=== PATIENT | female | born 1935 | race Caucasian/White ===

== ENCOUNTER → 2017-01-09 | Outpatient (CLI) | payer OTHER, MEDICARE ==
[2013-06-17 07:35] VITALS: BP 120/59
[2017-01-09 10:25] LABS: BASOPHILS % (AUTO) 0.5 % (0.2-1.0); EOSINOPHILS # (AUTO) 0.3 x10^3/uL (0.0-0.2); EOSINOPHILS % (AUTO) 4.4 % (0.9-2.9); HEMATOCRIT 44.2 % (36.0-47.0); HEMOGLOBIN 14.6 g/dL (12.0-16.0); LYMPHOCYTES # (AUTO) 1.6 X10^3/uL (1.3-2.9); LYMPHOCYTES % (AUTO) 20.8 % (21.0-51.0); MEAN CORPUSCULAR HEMOGLOBIN 28.2 pg (27.0-34.0); MEAN CORPUSCULAR HGB CONC 33.1 g/dL (33.0-35.0); MEAN CORPUSCULAR VOLUME 85.2 fL (80.0-100.0); MEAN PLATELET VOLUME 8.4 fL (7.4-11.0); MONOCYTES # (AUTO) 0.4 x10^3/uL (0.3-0.8); MONOCYTES % (AUTO) 5.2 % (0.0-13.0); NEUTROPHILS # (AUTO) 5.2 x10^3/uL (2.2-4.8); NEUTROPHILS % (AUTO) 69.1 % (42.0-75.0); PLATELET COUNT 204 X10^3/uL (150.0-450.0); RED BLOOD COUNT 5.19 X10^6/uL (3.5-5.4); RED CELL DISTRIBUTION WIDTH 14.4 % (11.6-16.5); RETICULOCYTE % 1.39 % (0.8-2.2); WHITE BLOOD COUNT 7.6 X10^3/uL (3.6-10.0)
[2017-01-09 11:02] LABS: ALANINE AMINOTRANSFERASE 19 Units/L (12-78); ALBUMIN 3.5 g/dL (3.4-5.0); ALKALINE PHOSPHATASE 64 Units/L (46-116); ASPARTATE AMINO TRANSFERASE 17 Units/L (15-37); BLOOD UREA NITROGEN 22 mg/dL (7-18); CARBON DIOXIDE 32.3 mmol/L (21-32); CHLORIDE 103 mmol/L (98-107); COR NA(FOR HYPERGLY) 146 mmol/L (136-145); CREATININE 1.12 mg/dL (0.55-1.02); GLUCOSE 212 mg/dL (65-99); SODIUM 143 mmol/L (136-145); TOTAL PROTEIN 7.1 g/dL (6.4-8.2); eGFR BLACK RACES 60 (>60); eGFR NON BLACK RACES 50 (>60)
[2017-01-09 11:23] LABS: CREATININE,URINE 84.52 mg/dL (29-226); MICROALBUMIN,URINE 5.8 mg/L
[2017-01-09 11:25] LABS: HEMOGLOBIN A1C 6.3 % (4.5-6.2)
[2017-01-09 11:52] LABS: TRANSFERRIN 234 mg/dL (202-364)
== END ==
LOC: LAB 09:05
PROVIDERS: ATTEND Nurse Practitioner Family
DX: E11.9 Type 2 diabetes mellitus without complications (principal); D51.0 Vitamin B12 deficiency anemia due to intrinsic factor deficiency; I10 Essential (primary) hypertension; D50.8 Other iron deficiency anemias
CPT/HCPCS: 36415; 80053; 82043; 82607; 82728; 82746; 83036; 84466; 85025; 85045

== ENCOUNTER 2017-03-27 11:14 | Inpatient (IN) | payer OTHER, MEDICARE ==
--- NOTE | 2017-03-27 11:45 | DR.URIAD ---
HPI - Time Seen Time seen: 11:40 - PCP Primary Care Physician: KATHRINE DE LEON - Complaint Chief Complaint Doctors Comments: Patient presents with c/o cough and decreased appetite. Family members concerned about possibility of pneumonia and dehydration. Chief Complaint:: CCC, FEVER..... PTS SPOUSE STATES " SHE HAS A HIATAL HERNIA THAT INFECTED.. " - Source History Provided: Patient - Mode of Arrival Mode of Arrival: Ambulatory - Timing Onset of Chief Complaint: 03/25/17 - Quality Shortness of Breath: Mild PMH - PMH Past Medical History: Yes Past Medical History: Diabetes Past Medical History Comment: TYPE 2 , Past Surgical History: Yes Surgical History: Cholecystectomy, Hysterectomy Past Surgical History Comment: HIATAL HERNIAS , UTI.... - Family History History of Family Medical Conditions: Yes Family Medical History: Diabetes Mellitus, Cancer, [place], Coronary Artery Disease, Sudden Cardiac , Hypertension - Social History Does patient currently use any type of tobacco product: No Have you used tobacco products in the last 12 months: No Type of Tobacco Use: None Does any household member use tobacco: No Alcohol Use: None Do you use any recreational Drugs:: No Lives With: Family Lives Where: Home - infectious screening In the last 2 months have you had wt loss of >10#?: NO Have you had fever, night sweats or hemotysis?: No Have you traveled outside the country in the last 6 months?: No ROS - Review of Systems Eyes: No Symptoms Reported ENTM: No Symptoms Reported Respiratoy: No Symptoms Reported Cardiovascular: No Symptoms Reported Gastrointestinal/Abdominal: No Symptoms Reported Genitourinary: No Symptoms Reported Neurological: No Symptoms Reported Musculoskeletal: No Symptoms Reported Integumentary: No Symptoms Reported Hematologic/Lymphatic: No Symptoms Reported Endocrine: No Symptoms Reported Psychiatric: No Symptoms Reported All Other Systems: Reviewed and Negative PE - Vital Signs Vitals: Temperature 99.4 F Pulse Rate 93 Respiratory Rate 22 Blood Pressure [Right Arm] 176/79 Blood Pressure [Left Arm] 120/59 Blood Pressure [Left Femoral 122/59 Artery] Blood Pressure 135/74 O2 Sat by Pulse Oximetry 95 - General General Appearance: Alert, In No Apparent Distress - Head Head Exam: Normal Inspection, Atraumatic - Eyes Eye exam: Normal Appearance, PERRL, EOMI - ENT ENT Exam: Normal Exam External Ear Exam: Normal External Inspection TM/Canal Exam: Bilateral Normal Nose Exam: Normal Nose Exam Nasal Speculum Exam: Bilateral Normal Mouth Exam: Normal Inspection Throat Exam: Normal Inspection - Neck Neck Exam: Normal Inspection - Chest Chest Inspection: Normal Inspection - Respiratory Respiratory Exam: Normal Lung Sounds Bilat Respiratory Exam: Bilateral Clear to Auscultation - Cardiovascular Cardiovascular Exam: Regular Rate, Normal Rhythm - Abdominal Exam Abdominal Exam: Normal Inspection Abdominal Tenderness: negative: RUQ, RLQ, LUQ, LLQ, Epigastrium, Suprapubic, Diffuse, Mild, Moderate, Severe, Other - Extremeties Extremities Exam: Normal Inspection, Full ROM - Back Back Exam: Normal Inspection - Neurologic Neurological Exam: Alert, Oriented X3, CN II-XII Intact - Psychiatric Psychiatric Exam: Normal Affect - Skin Skin Exam: Warm, Dry, Intact Course - Consultation Called: 01:50 (Agreed to admit for further treatment and evaluation) ROR - Labs Reviewed Result Diagrams: 03/27/17 11:50 03/27/17 11:50 Laboratory: WBC 12.4 X10^3/uL (3.6-10.0) H 03/27/17 11:50 RBC 4.46 X10^6/uL (3.5-5.4) 03/27/17 11:50 Hgb 12.3 g/dL (12.0-16.0) 03/27/17 11:50 Hct 36.9 % (36.0-47.0) 03/27/17 11:50 MCV 82.7 fL (80.0-100.0) 03/27/17 11:50 MCH 27.5 pg (27.0-34.0) 03/27/17 11:50 MCHC 33.2 g/dL (33.0-35.0) 03/27/17 11:50 RDW 14.7 % (11.6-16.5) 03/27/17 11:50 Plt Count 246 X10^3/uL (150.0-450.0) 03/27/17 11:50 MPV 7.9 fL (7.4-11.0) 03/27/17 11:50 Neut % 83.2 % (42.0-75.0) H 03/27/17 11:50 Lymph % 9.4 % (21.0-51.0) L 03/27/17 11:50 [place] % 5.7 % (0.0-13.0) 03/27/17 11:50 Eos % 1.1 % (0.9-2.9) 03/27/17 11:50 Baso % 0.6 % (0.2-1.0) 03/27/17 11:50 Neut # 10.3 x10^3/uL (2.2-4.8) H 03/27/17 11:50 Lymph # 1.2 X10^3/uL (1.3-2.9) L 03/27/17 11:50 [place] # 0.7 x10^3/uL (0.3-0.8) 03/27/17 11:50 Eos # 0.1 x10^3/uL (0.0-0.2) 03/27/17 11:50 Baso # 0.1 X10^3/uL (0.0-0.1) 03/27/17 11:50 Absolute Nucleated RBC 0.0 /100WBC 03/27/17 11:50 Sodium 138 mmol/L (136-145) 03/27/17 11:50 Corrected Sodium 141 mmol/L (136-145) 03/27/17 11:50 Potassium 4.2 mmol/L (3.5-5.1) 03/27/17 11:50 Chloride 101 mmol/L (98-107) 03/27/17 11:50 Carbon Dioxide 27.7 mmol/L (21-32) 03/27/17 11:50 BUN 16 mg/dL (7-18) 03/27/17 11:50 Creatinine 1.13 mg/dL (0.55-1.02) H 03/27/17 11:50 Est GFR (MDRD) Af Amer 59 (>60) 03/27/17 11:50 Est GFR (MDRD) Non-Af 49 (>60) L 03/27/17 11:50 Glucose 222 mg/dL (65-99) H 03/27/17 11:50 Calcium 8.4 mg/dL (8.5-10.1) L 03/27/17 11:50 Corrected Calcium 9.4 mg/dL (8.5-10.1) 03/27/17 11:50 Total Bilirubin 0.30 mg/dL (0.2-1.0) 03/27/17 11:50 AST 15 Units/L (15-37) 03/27/17 11:50 ALT 15 Units/L (12-78) 03/27/17 11:50 Alkaline Phosphatase 76 Units/L (46-116) 03/27/17 11:50 Total Protein 6.8 g/dL (6.4-8.2) 03/27/17 11:50 Albumin 2.7 g/dL (3.4-5.0) L 03/27/17 11:50 Globulin 4.1 g/dL (2.5-4.5) 03/27/17 11:50 Albumin/Globulin Ratio 0.7 Ratio (1.1-2.1) L 03/27/17 11:50 Specimen Type Clean catch urine 03/27/17 12:52 Urine Color Yellow (YELLOW) 03/27/17 12:52 Urine Appearance Slightly hazy (CLEAR) 03/27/17 12:52 Urine pH 6.0 (5.0 - 8.0) 03/27/17 12:52 Ur Specific [place] 1.010 (1.000-1.030) 03/27/17 12:52 Urine Protein Negative (NEGATIVE) 03/27/17 12:52 Urine Glucose (UA) Negative (NEGATIVE) 03/27/17 12:52 Urine Ketones Negative (NEGATIVE) 03/27/17 12:52 Urine Occult Blood 1+ (NEGATIVE) 03/27/17 12:52 Urine Nitrite Negative (NEGATIVE) 03/27/17 12:52 Urine Bilirubin Negative (NEGATIVE) 03/27/17 12:52 Urine Urobilinogen Normal (NORMAL) 03/27/17 12:52 Ur Leukocyte Esterase Negative (NEGATIVE) 03/27/17 12:52 Urine RBC 3-5 /HPF (NEGATIVE) 03/27/17 12:52 Urine WBC 0-2 /HPF (NEGATIVE) 03/27/17 12:52 Ur Squamous Epith Cells Moderate /HPF (NEGATIVE) 03/27/17 12:52 Amorphous Sediment Trace /HPF (NEGATIVE) 03/27/17 12:52 Urine Bacteria 3+ /HPF (NEGATIVE) 03/27/17 12:52 Ur Culture Indicated? Yes/culture set up 03/27/17 12:52 - XRAY XRAY Interpreted by: Radiologist (Hypoventilated lungs. There are patchy areas of confluent opacity present in the left perihilar region and at the left lung base, worrisome for pneumonia. Clinical correlation with continued followup until resolution is recommended.) - Diagnosis Discharge Problem: Dehydration, mild Left lower lobe pneumonia Qualifiers: Pneumonia type: due to unspecified organism Qualified Code(s): J18.1 - Lobar pneumonia, unspecified organism - Follow ups/Referrals Follow ups/Referrals: ANG RICO [Primary Care Provider] - 3 days - Instructions
[2017-03-27 12:10] LABS: BASOPHILS # (AUTO) 0.1 X10^3/uL (0.0-0.1); BASOPHILS % (AUTO) 0.6 % (0.2-1.0); EOSINOPHILS # (AUTO) 0.1 x10^3/uL (0.0-0.2); EOSINOPHILS % (AUTO) 1.1 % (0.9-2.9); HEMATOCRIT 36.9 % (36.0-47.0); HEMOGLOBIN 12.3 g/dL (12.0-16.0); LYMPHOCYTES # (AUTO) 1.2 X10^3/uL (1.3-2.9); LYMPHOCYTES % (AUTO) 9.4 % (21.0-51.0); MEAN CORPUSCULAR HEMOGLOBIN 27.5 pg (27.0-34.0); MEAN CORPUSCULAR HGB CONC 33.2 g/dL (33.0-35.0); MEAN CORPUSCULAR VOLUME 82.7 fL (80.0-100.0); MEAN PLATELET VOLUME 7.9 fL (7.4-11.0); MONOCYTES # (AUTO) 0.7 x10^3/uL (0.3-0.8); MONOCYTES % (AUTO) 5.7 % (0.0-13.0); NEUTROPHILS # (AUTO) 10.3 x10^3/uL (2.2-4.8); NEUTROPHILS % (AUTO) 83.2 % (42.0-75.0); PLATELET COUNT 246 X10^3/uL (150.0-450.0); RED BLOOD COUNT 4.46 X10^6/uL (3.5-5.4); RED CELL DISTRIBUTION WIDTH 14.7 % (11.6-16.5); WHITE BLOOD COUNT 12.4 X10^3/uL (3.6-10.0)
[2017-03-27 12:16] LABS: ALBUMIN 2.7 g/dL (3.4-5.0); CALCIUM 8.4 mg/dL (8.5-10.1); CARBON DIOXIDE 27.7 mmol/L (21-32); COR CA(FOR HYPOALB) 9.4 mg/dL (8.5-10.1); CREATININE 1.13 mg/dL (0.55-1.02); TOTAL PROTEIN 6.8 g/dL (6.4-8.2)
--- NOTE | 2017-03-27 12:23 | RAD ---
Examination: Chest x-ray. Clinical History: Cough, congestion and fever. Technique: PA and lateral views of the chest were obtained. Comparison: 06/03/2013. Findings: The lungs are hypoventilated, precluding evaluation of the heart size. The thoracic aorta is tortuou s. There is a soft tissue opacity seen superimposed on the cardiac silhouette, with an associated air-f luid level also noted. Findings were also apparent on a chest x-ray dated 06/12/2012 and are consiste nt with a large hiatal hernia. No pneumothorax or pleural effusion is noted. There are patchy areas of confluent opacity present in the left perihilar region and at the left tom g base, worrisome for pneumonia. Clinical correlation with continued followup until resolution is re commended. The bones appear diffusely osteopenic. There is a mild thoracic scoliosis seen convex to the right, with an apparent lumbar scoliosis seen convex to the left. Degenerative changes are noted in the spi ne. No acute osseous abnormality is noted. Surgical clips are seen in the right upper abdomen consistent with a prior cholecystectomy. Impression: 1. Hypoventilated lungs. 2. There are patchy areas of confluent opacity present in the left perihilar region and at the left lung base, worrisome for pneumonia. Clinical correlation with continued followup until resolution is recommended. 3. Large hiatal hernia. Reported By:
[2017-03-27 13:25] LABS: BILIRUBIN,URINE NEGATIVE (NEGATIVE); BLOOD/HEMOGLOBIN,URINE 1+ (NEGATIVE); GLUCOSE, URINE NEGATIVE (NEGATIVE); KETONES,URINE NEGATIVE (NEGATIVE); LEUKOCYTE ESTERASE ,URINE NEGATIVE (NEGATIVE); NITRITES,URINE NEGATIVE (NEGATIVE); PROTEIN,URINE NEGATIVE (NEGATIVE); UROBILINOGEN,URINE NORMAL (NORMAL)
[2017-03-27 13:33] LABS: AMORPHOUS SEDIMENT,UR TRACE /HPF (NEGATIVE); APPEARANCE,URINE SLIGHTLY HAZY (CLEAR); BACTERIA,URINE 3+ /HPF (NEGATIVE); COLOR,URINE YELLOW (YELLOW); SQUAMOUS EPITHELIAL CELL,UR MODERATE /HPF (NEGATIVE)
[2017-03-27] MEDS ORDERED: NS 1/2 1000 ML IV 1,000 ML IV ONE (14:16)
[2017-03-27] MEDS ORDERED: ROCEPHIN 1 GM IV PREMIX * OUT OF STOCK 50 ML IV ONE (14:16)
[2017-03-27] MEDS: NS 1/2 1000 ML IV 1,000 ML IV SCH (14:19)
[2017-03-27] MEDS: ROCEPHIN VIAL 1 GM 1 GM in NS 50 ML IV + SPIKE MINIBAG* 50 ML IV SCH (14:19)
[2017-03-27] MEDS: DUONEB 0.5 MG/3 MG NEB SCH ×2 (16:05→20:22)
[2017-03-27] MEDS: ROBITUSSIN DM PO SCH ×2 (16:35→21:59)
[2017-03-27] MEDS ORDERED: GLUCOPHAGE ONE (21:43)
[2017-03-27] MEDS: VIBRAMYCIN 100 MG in NS 100 ML IV + SPIKE MINIBAG* 100 ML IV SCH (21:58)
[2017-03-27] MEDS: DIABETA PO SCH (21:59)
[2017-03-27] MEDS: ULTRAM PO SCH (21:59)
[2017-03-27] MEDS: TUSSIONEX PENNKINETIC SUSP PO PRN (21:59)
[2017-03-27] MEDS: SNACK - Diabetic Appropriate PO SCH (22:00)
[2017-03-27] MEDS: GLUCOPHAGE PO SCH (22:06)
[2017-03-27] MEDS: HumuLIN R SC PRN (22:09)
[2017-03-27] MEDS: XANAX PO PRN (22:11)
[2017-03-28] MEDS: DUONEB 0.5 MG/3 MG NEB SCH ×6 (00:59→20:54)
[2017-03-28] MEDS ORDERED: NS 1/2 1000 ML IV 1,000 ML IV ONE ×2 (02:15→18:17)
[2017-03-28] MEDS: ULTRAM PO SCH ×3 (05:02→21:17)
[2017-03-28] MEDS: NS 1/2 1000 ML IV 1,000 ML IV SCH ×2 (05:02→18:27)
[2017-03-28 05:49] LABS: BASOPHILS % (AUTO) 0.4 % (0.2-1.0); EOSINOPHILS # (AUTO) 0.4 x10^3/uL (0.0-0.2); EOSINOPHILS % (AUTO) 4.8 % (0.9-2.9); HEMATOCRIT 33.8 % (36.0-47.0); HEMOGLOBIN 11.2 g/dL (12.0-16.0); LYMPHOCYTES # (AUTO) 1.9 X10^3/uL (1.3-2.9); LYMPHOCYTES % (AUTO) 21.6 % (21.0-51.0); MEAN CORPUSCULAR HEMOGLOBIN 27.7 pg (27.0-34.0); MEAN CORPUSCULAR HGB CONC 33.3 g/dL (33.0-35.0); MEAN CORPUSCULAR VOLUME 83.3 fL (80.0-100.0); MEAN PLATELET VOLUME 8.2 fL (7.4-11.0); MONOCYTES # (AUTO) 0.5 x10^3/uL (0.3-0.8); MONOCYTES % (AUTO) 6.2 % (0.0-13.0); NEUTROPHILS # (AUTO) 5.8 x10^3/uL (2.2-4.8); PLATELET COUNT 211 X10^3/uL (150.0-450.0); RED BLOOD COUNT 4.05 X10^6/uL (3.5-5.4); RED CELL DISTRIBUTION WIDTH 14.9 % (11.6-16.5); WHITE BLOOD COUNT 8.6 X10^3/uL (3.6-10.0)
[2017-03-28 05:59] LABS: ALANINE AMINOTRANSFERASE 12 Units/L (12-78); ALBUMIN 2.4 g/dL (3.4-5.0); ALKALINE PHOSPHATASE 67 Units/L (46-116); ASPARTATE AMINO TRANSFERASE 11 Units/L (15-37); BLOOD UREA NITROGEN 10 mg/dL (7-18); CALCIUM 8.1 mg/dL (8.5-10.1); CARBON DIOXIDE 27.6 mmol/L (21-32); CHLORIDE 106 mmol/L (98-107); COR CA(FOR HYPOALB) 9.4 mg/dL (8.5-10.1); COR NA(FOR HYPERGLY) 144 mmol/L (136-145); CREATININE 0.96 mg/dL (0.55-1.02); GLUCOSE 133 mg/dL (65-99); SODIUM 143 mmol/L (136-145); TOTAL PROTEIN 6.3 g/dL (6.4-8.2); eGFR BLACK RACES > 60 (>60); eGFR NON BLACK RACES 59 (>60)
--- NOTE | 2017-03-28 06:34 | RAD ---
HISTORY: Follow up pneumonia Study: Chest one view Comparison: March 27, 2017 Findings: The heart is upper limits normal in size. No congestive heart failure is noted. The lungs are hyperi nflated. The right lung is free of acute infiltrates. Left perihilar infiltrate is unchanged. A hiat al hernia is present. The bony thorax is unremarkable. IMPRESSION: No change left perihilar pneumonia Hiatal hernia Reported By:
[2017-03-28] MEDS ORDERED: GLUCOPHAGE ONE ×2 (07:58→20:37)
[2017-03-28] MEDS: VIBRAMYCIN 100 MG in NS 100 ML IV + SPIKE MINIBAG* 100 ML IV SCH ×2 (08:48→21:17)
[2017-03-28] MEDS: ROCEPHIN VIAL 1 GM 1 GM in NS 50 ML IV + SPIKE MINIBAG* 50 ML IV SCH (08:48)
[2017-03-28] MEDS: DIABETA PO SCH ×2 (08:49→21:17)
[2017-03-28] MEDS: GLUCOPHAGE PO SCH ×2 (08:49→21:18)
[2017-03-28] MEDS: PriLOSEC PO SCH (08:49)
[2017-03-28] MEDS: FERROUS SULFATE PO SCH (08:49)
[2017-03-28] MEDS: ROBITUSSIN DM PO SCH ×4 (08:49→21:17)
[2017-03-28] MEDS: TUSSIONEX PENNKINETIC SUSP PO PRN ×2 (11:00→23:32)
[2017-03-28 13:54] VITALS: BMI 21.9
[2017-03-28] MEDS: SNACK - Diabetic Appropriate PO SCH (21:16)
[2017-03-28] MEDS: XANAX PO PRN (21:17)
[2017-03-28] MEDS: HumuLIN R SC PRN (21:18)
[2017-03-29] MEDS: DUONEB 0.5 MG/3 MG NEB SCH ×4 (01:42→12:35)
[2017-03-29] MEDS: ULTRAM PO SCH ×2 (05:50→13:06)
[2017-03-29 05:58] LABS: ALANINE AMINOTRANSFERASE 12 Units/L (12-78); ALBUMIN 2.3 g/dL (3.4-5.0); ALKALINE PHOSPHATASE 60 Units/L (46-116); ASPARTATE AMINO TRANSFERASE 14 Units/L (15-37); BLOOD UREA NITROGEN 9 mg/dL (7-18); CALCIUM 8.2 mg/dL (8.5-10.1); CARBON DIOXIDE 24.9 mmol/L (21-32); CHLORIDE 108 mmol/L (98-107); COR CA(FOR HYPOALB) 9.6 mg/dL (8.5-10.1); COR NA(FOR HYPERGLY) 145 mmol/L (136-145); CREATININE 0.87 mg/dL (0.55-1.02); GLUCOSE 184 mg/dL (65-99); SODIUM 143 mmol/L (136-145); eGFR BLACK RACES > 60 (>60); eGFR NON BLACK RACES > 60 (>60)
[2017-03-29 06:02] LABS: BASOPHILS % (AUTO) 0.5 % (0.2-1.0); EOSINOPHILS # (AUTO) 0.3 x10^3/uL (0.0-0.2); EOSINOPHILS % (AUTO) 4.3 % (0.9-2.9); HEMATOCRIT 32.1 % (36.0-47.0); HEMOGLOBIN 10.8 g/dL (12.0-16.0); LYMPHOCYTES # (AUTO) 1.4 X10^3/uL (1.3-2.9); MEAN CORPUSCULAR HEMOGLOBIN 27.9 pg (27.0-34.0); MEAN CORPUSCULAR HGB CONC 33.6 g/dL (33.0-35.0); MEAN CORPUSCULAR VOLUME 83.1 fL (80.0-100.0); MEAN PLATELET VOLUME 8.1 fL (7.4-11.0); MONOCYTES # (AUTO) 0.5 x10^3/uL (0.3-0.8); NEUTROPHILS # (AUTO) 5.6 x10^3/uL (2.2-4.8); NEUTROPHILS % (AUTO) 71.2 % (42.0-75.0); PLATELET COUNT 212 X10^3/uL (150.0-450.0); RED BLOOD COUNT 3.86 X10^6/uL (3.5-5.4); RED CELL DISTRIBUTION WIDTH 14.4 % (11.6-16.5); WHITE BLOOD COUNT 7.8 X10^3/uL (3.6-10.0)
[2017-03-29] MEDS ORDERED: GLUCOPHAGE ONE (08:16)
[2017-03-29] MEDS: GLUCOPHAGE PO SCH (08:29)
[2017-03-29] MEDS: FERROUS SULFATE PO SCH (08:29)
[2017-03-29] MEDS: DIABETA PO SCH (08:29)
[2017-03-29] MEDS: PriLOSEC PO SCH (08:29)
[2017-03-29] MEDS: NS 1/2 1000 ML IV 1,000 ML IV SCH (08:29)
[2017-03-29] MEDS: VIBRAMYCIN 100 MG in NS 100 ML IV + SPIKE MINIBAG* 100 ML IV SCH (08:30)
[2017-03-29] MEDS: ROBITUSSIN DM PO SCH ×2 (08:30→13:06)
[2017-03-29] MEDS: TUSSIONEX PENNKINETIC SUSP PO PRN (08:30)
[2017-03-29] MEDS: ROCEPHIN VIAL 1 GM 1 GM in NS 50 ML IV + SPIKE MINIBAG* 50 ML IV SCH (08:30)
[2017-03-29 12:46] VITALS: BP 113/54
[2017-03-29] MEDS ORDERED: GLUCOPHAGE PO SCH (17:00)
== END 2017-03-29 13:10 | disposition home or self-care (01) | DRG 179 ==
LOC: ER 11:31 → MED/SURG 15:00
PROVIDERS: ADMIT Obstetrics & Gynecology Obstetrics; ATTEND Obstetrics & Gynecology Obstetrics
DX: J15.0 Pneumonia due to Klebsiella pneumoniae (principal); E86.0 Dehydration; Z66 Do not resuscitate; K44.9 Diaphragmatic hernia without obstruction or gangrene; B96.29 Other Escherichia coli [E. coli] as the cause of diseases classified elsewhere; R26.89 Other abnormalities of gait and mobility
CPT/HCPCS: 36415; 71010; 71020; 80053; 81001; 85025; 87040; 87070; 87077; 87086; 87186; 87205; 94640; 94760; 96365; 96374; 97535; 99284; A4222; J0696; J1815; J3490; J7620

== ENCOUNTER → 2017-04-10 | Outpatient (CLI) | payer OTHER, MEDICARE ==
[2017-03-29 12:46] VITALS: BP 113/54
[2017-04-10 08:58] LABS: CREATININE,URINE 62.45 mg/dL (29-226); MICROALBUMIN,URINE 1.6 mg/L
[2017-04-10 09:07] LABS: HEMOGLOBIN A1C 6.8 % (4.5-6.2)
[2017-04-10 09:10] LABS: ALANINE AMINOTRANSFERASE 13 Units/L (12-78); ALBUMIN 3.3 g/dL (3.4-5.0); ALKALINE PHOSPHATASE 66 Units/L (46-116); ASPARTATE AMINO TRANSFERASE 12 Units/L (15-37); BLOOD UREA NITROGEN 12 mg/dL (7-18); CARBON DIOXIDE 30.5 mmol/L (21-32); CHLORIDE 100 mmol/L (98-107); CHOL/HDL RATIO 3.5 (0.0-5.0); CHOLESTEROL 178 mg/dL (0-200); COR CA(FOR HYPOALB) 9.6 mg/dL (8.5-10.1); COR NA(FOR HYPERGLY) 138 mmol/L (136-145); GLUCOSE 135 mg/dL (65-99); HDL CHOLESTEROL 51 mg/dL (40-60); SODIUM 137 mmol/L (136-145); TOTAL PROTEIN 7.2 g/dL (6.4-8.2); TRIGLYCERIDES 148 mg/dL (0-150); eGFR BLACK RACES > 60 (>60); eGFR NON BLACK RACES 51 (>60)
[2017-04-10 09:22] LABS: BASOPHILS # (AUTO) 0.1 X10^3/uL (0.0-0.1); EOSINOPHILS # (AUTO) 0.5 x10^3/uL (0.0-0.2); EOSINOPHILS % (AUTO) 7.1 % (0.9-2.9); HEMATOCRIT 39.9 % (36.0-47.0); HEMOGLOBIN 13.5 g/dL (12.0-16.0); LYMPHOCYTES # (AUTO) 1.9 X10^3/uL (1.3-2.9); MEAN CORPUSCULAR HEMOGLOBIN 27.7 pg (27.0-34.0); MEAN CORPUSCULAR HGB CONC 33.7 g/dL (33.0-35.0); MEAN PLATELET VOLUME 7.9 fL (7.4-11.0); MONOCYTES # (AUTO) 0.3 x10^3/uL (0.3-0.8); MONOCYTES % (AUTO) 4.8 % (0.0-13.0); NEUTROPHILS # (AUTO) 4.3 x10^3/uL (2.2-4.8); NEUTROPHILS % (AUTO) 60.1 % (42.0-75.0); PLATELET COUNT 290 X10^3/uL (150.0-450.0); RED BLOOD COUNT 4.86 X10^6/uL (3.5-5.4); RED CELL DISTRIBUTION WIDTH 14.9 % (11.6-16.5); RETICULOCYTE % 1.64 % (0.8-2.2); WHITE BLOOD COUNT 7.1 X10^3/uL (3.6-10.0)
[2017-04-10 09:33] LABS: TRANSFERRIN 252 mg/dL (202-364)
== END ==
LOC: LAB 07:47
PROVIDERS: ATTEND Nurse Practitioner Family
DX: E78.4 Other hyperlipidemia (principal); E11.9 Type 2 diabetes mellitus without complications; D51.0 Vitamin B12 deficiency anemia due to intrinsic factor deficiency
CPT/HCPCS: 36415; 80053; 80061; 82043; 82607; 82728; 82746; 83036; 83918; 84466; 85025; 85045

== ENCOUNTER → 2017-07-31 | Outpatient (CLI) | payer OTHER, MEDICARE ==
--- NOTE | 2017-07-31 16:42 | MG ---
Examination: Bilateral screening mammogram. Clinical history: Routine screening. Technique: Digital CC and MLO views of both breasts were obtained. Computer aided detection analysis was performed and used during the interpretation. Comparison: 07/04/2015. Findings: The breasts are composed of scattered fibroglandular densities. Benign-appearing calcifications and s table benign-appearing densities are present in the breasts bilaterally. No suspicious mass, area of architectural distortion or suspicious cluster of microcalcifications is noted. Impression: 1. No mammographic evidence of malignancy. BI-RADS category 2-benign findings. Recommend routine annual screening mammogram. Diagnostic CAD was utilized and reviewed. * 0 (ZERO) - ASSESSMENT INCOMPLETE; ADDITIONAL IMAGING IS NEEDED. * 0C - ASSESSMENT INCOMPLETE, NEEDS ADDITIONAL IMAGING EVALUATION AND/OR PRIOR MAMMOGRAMS FOR COMPARI SON. * 1/1 (ONE) - NEGATIVE. * 2/II (TWO) - BENIGN FINDINGS. * 3/III (THREE) - PROBABLY BENIGN FINDING; SHORT INTERVAL FOLLOW-UP SUGGESTED. * 4/IV (FOUR) - SUSPICIOUS ABNORMALITY; BIOPSY SHOULD BE CONSIDERED. * 5/V - HIGHLY SUSPICIOUS OF MALIGNANCY; BIOPSY SHOULD BE PERFORMED. * 6/IV - KNOWN BIOPSY PROVEN MALIGNANCY-APPROPRIATE ACTION SHOULD BE TAKEN. A NEGATIVE X-RAY REPORT SHOULD NOT DELAY BIOPSY IF A DOMINANT OR CLINICALLY SUSPICIOUS MASS IS PRESENT; 4 TO 8 PERCENT OF CANCERS ARE NOT IDENTIFIED BY X-RAY. A NEGATIVE REPORT MAY REINFORCE THE CLINICAL IMPRESSION. ADENOSIS AND DENSE BREASTS MAY OBSCURE AN UNDERLYING NEOPLASM. Reported By:
== END ==
LOC: RAD 09:09
PROVIDERS: ATTEND Nurse Practitioner Family
DX: Z12.31 Encounter for screening mammogram for malignant neoplasm of breast (principal)
CPT/HCPCS: 77067

== ENCOUNTER 2019-01-20 15:58 | Inpatient (IN) ==
[2019-01-20] MEDS ORDERED: HumuLIN R SUBCUT PRN (16:47)
[2019-01-20] MEDS: PULMICORT NEB TX 0.5 MG NEB SCH ×2 (16:56→20:06)
--- NOTE | 2019-01-20 16:59 | DR.H&P ---
H&P - History & Physical for Day of: H&P Date: 01/20/19 - Chief Complaint Chief Complaint: weakness, sob, coughing up mucous, UTI - History of Present Illness History of Present Illness: 83 WF DIRECT ADMIT FROM DR AWAN OFFICE WITH CO ER FOLLOW UP WITH WEAKNESS AND UTI. FAMILY REPORTS PT WAS SEEN IN ER ON SATURDAY WITH ELEVATED WBC AND LOW NA AND SENT HOME. PT HAS BEEN ON PO ANTIBIOTICS FOR UIT AND CONTINUES WITH WEAKNESS, CHILLS AND CHEST CONGESTION. PT HAS PMH OF CAD, HTN, DM, RA. PT ADMITTED FOR TREATMENT OF ACUTE ILLNESS, DEHYDRATION, UTI, BRONCHITIS - Past Medical History Past Medical History: Anxiety, Arthritis, Coronary Artery Disease, Diabetes, Dyslipidemia, Hypertension - Past Surgical History Surgical History: Cholecystectomy, Hysterectomy, Other - Family History Family Medical History: Diabetes Mellitus, Cancer, [place], Coronary Artery Disease, Sudden Cardiac , Hypertension - Social History Does patient currently use any type of tobacco product: No Have you used tobacco products in the last 12 months: No Type of Tobacco Use: None Does any household member use tobacco: No Alcohol Use: None Drug Use: None - Medications Home Medications: diphenhydramine [From Benadryl] Allergy (Verified 03/27/18 09:37) - Review of Systems Constitutional: Chills, Weakness Eyes: No Symptoms Reported ENT: No Symptoms Reported Respiratory: Cough, Shortness of Breath, SOB with Excertion, Sputum Cardiovascular: Chest Pain. denies: Edema Gastrointestinal: No Symptoms Reported, Nausea Genitourinary: Frequency Musculoskeletal: Back Pain Skin: No Symptoms Reported Neurological: Weakness - Physical Exam Vital Signs: Blood Pressure [Right Arm] 121/56 Blood Pressure [Left Arm] 120/59 Blood Pressure [Left Femoral 122/59 Artery] Blood Pressure 121/56 Oriented: Normal Eyes: Normal Ear: Normal Nose: Normal Throat: Normal Respiratory: RLL Rales, LLL Rales Cardiovascular: Murmur : Normal Auscultation: Bowel Sounds: Bruit Palpation: Spleen Enlarged Tenderness: Normal Skin: Decreased Turgur Musculoskeletal: Back:Thoracic, Back:Lumbar Psychiatric: Anxiety Affect: Anxious Speech Pattern: Clear, Appropriate - Assessment/Plan (1) Weakness Status: Acute Plan: ADMIT, GENTLE IV HYDRATION. STRICT I & OS, ADMISSION LABS. CBC CMP MAG, UA/UC BC. CXR ON ADMISSION, RESP CONSULT. IV ATBX, SUPPLEMENTAL O2 (2) UTI (urinary tract infection) Status: Acute (3) CHF (congestive heart failure) Status: Acute (4) Hyponatremia Status: Acute (5) Diabetes mellitus, type II Status: Chronic (6) Essential (primary) hypertension Status: Chronic (7) Generalized anxiety disorder Status: Chronic (8) GERD (gastroesophageal reflux disease) Status: Chronic - Allergies Allergies/Adverse Reactions: Allergies Allergy/AdvReac Type Severity Reaction Status Date / Time diphenhydramine Allergy Verified 03/27/18 09:37 [From Diogenes]
--- NOTE | 2019-01-20 17:18 | RAD ---
HISTORY: Shortness of breath, congestive heart failure, and bronchitis. Study: Portable chest. Comparison: Chest x-ray dated March 28, 2017. Findings: The trachea is midline. The cardiac silhouette is at the upper limits of normal. Chronic emphysematous and interstitial lung changes. Large hiatal hernia. No obvious focal consolidation, pleural effusion, or pneumothorax. The bony thorax is unremarkable. IMPRESSION: No acute cardiopulmonary disease. Reported By:
[2019-01-20 17:21] LABS: BASOPHILS % (AUTO) 0.4 % (0.2-1.0); EOSINOPHILS # (AUTO) 0.6 x10^3/uL (0.0-0.2); EOSINOPHILS % (AUTO) 5.6 % (0.9-2.9); HEMATOCRIT 27.9 % (36.0-47.0); HEMOGLOBIN 8.9 g/dL (12.0-16.0); LYMPHOCYTES # (AUTO) 1.3 X10^3/uL (1.3-2.9); LYMPHOCYTES % (AUTO) 13.3 % (21.0-51.0); MEAN CORPUSCULAR HEMOGLOBIN 23.1 pg (27.0-34.0); MEAN CORPUSCULAR HGB CONC 31.8 g/dL (33.0-35.0); MEAN CORPUSCULAR VOLUME 72.7 fL (80.0-100.0); MEAN PLATELET VOLUME 7.1 fL (7.4-11.0); MONOCYTES # (AUTO) 0.7 x10^3/uL (0.3-0.8); MONOCYTES % (AUTO) 6.8 % (0.0-13.0); NEUTROPHILS # (AUTO) 7.5 x10^3/uL (2.2-4.8); NEUTROPHILS % (AUTO) 73.9 % (42.0-75.0); PLATELET COUNT 337 X10^3/uL (150.0-450.0); RED BLOOD COUNT 3.84 X10^6/uL (3.5-5.4); RED CELL DISTRIBUTION WIDTH 17.5 % (11.6-16.5); WHITE BLOOD COUNT 10.1 X10^3/uL (3.6-10.0)
[2019-01-20 17:33] LABS: ALANINE AMINOTRANSFERASE 10 Units/L (12-78); ALBUMIN 2.4 g/dL (3.4-5.0); ALKALINE PHOSPHATASE 81 Units/L (46-116); ASPARTATE AMINO TRANSFERASE 9 Units/L (15-37); BLOOD UREA NITROGEN 9 mg/dL (7-18); CALCIUM 8.5 mg/dL (8.5-10.1); CARBON DIOXIDE 30.3 mmol/L (21-32); CHLORIDE 97 mmol/L (98-107); COR CA(FOR HYPOALB) 9.8 mg/dL (8.5-10.1); COR NA(FOR HYPERGLY) 137 mmol/L (136-145); CREATININE 1.01 mg/dL (0.55-1.02); SODIUM 135 mmol/L (136-145); TOTAL PROTEIN 6.3 g/dL (6.4-8.2); eGFR NON BLACK RACES 56 (>60)
[2019-01-20 17:40] LABS: ANISOCYTOSIS SLIGHT; GIANT PLATELET RARE; HYPOCHROMASIA 1+; MICROCYTOSIS SLIGHT; PLATELET MORPHOLOGY COMMENT ABNORMAL (NORMAL)
[2019-01-20 17:45] VITALS: BMI 31.6
[2019-01-20] MEDS: ROCEPHIN VIAL 1 GRAM IVP SCH (18:38)
[2019-01-20] MEDS: NS 1000 ML 1,000 ML IV SCH (18:38)
[2019-01-20 20:03] LABS: BILIRUBIN,URINE NEGATIVE (NEGATIVE); BLOOD/HEMOGLOBIN,URINE NEGATIVE (NEGATIVE); GLUCOSE, URINE 2+ (NEGATIVE); KETONES,URINE NEGATIVE (NEGATIVE); LEUKOCYTE ESTERASE ,URINE NEGATIVE (NEGATIVE); NITRITES,URINE NEGATIVE (NEGATIVE); PROTEIN,URINE 2+ (NEGATIVE); UROBILINOGEN,URINE NORMAL (NORMAL)
[2019-01-20 20:11] LABS: APPEARANCE,URINE CLEAR (CLEAR); COLOR,URINE YELLOW (YELLOW)
[2019-01-20 20:12] LABS: BACTERIA,URINE TRACE /HPF (NEGATIVE); RBC,URINE 0-2 /HPF (NONE SEEN); SQUAMOUS EPITHELIAL CELL,UR MANY /HPF (NEGATIVE)
[2019-01-20] MEDS: ULTRAM PO PRN (20:41)
[2019-01-20] MEDS: SNACK - Diabetic Appropriate PO SCH (21:40)
[2019-01-21 05:20] LABS: BASOPHILS # (AUTO) 0.1 X10^3/uL (0.0-0.1); EOSINOPHILS # (AUTO) 0.8 x10^3/uL (0.0-0.2); EOSINOPHILS % (AUTO) 9.9 % (0.9-2.9); HEMATOCRIT 26.9 % (36.0-47.0); HEMOGLOBIN 8.6 g/dL (12.0-16.0); LYMPHOCYTES # (AUTO) 1.8 X10^3/uL (1.3-2.9); LYMPHOCYTES % (AUTO) 23.3 % (21.0-51.0); MEAN CORPUSCULAR HEMOGLOBIN 23.1 pg (27.0-34.0); MEAN CORPUSCULAR VOLUME 72.2 fL (80.0-100.0); MEAN PLATELET VOLUME 7.8 fL (7.4-11.0); MONOCYTES # (AUTO) 0.6 x10^3/uL (0.3-0.8); MONOCYTES % (AUTO) 7.6 % (0.0-13.0); NEUTROPHILS # (AUTO) 4.4 x10^3/uL (2.2-4.8); NEUTROPHILS % (AUTO) 58.2 % (42.0-75.0); PLATELET COUNT 306 X10^3/uL (150.0-450.0); RED BLOOD COUNT 3.73 X10^6/uL (3.5-5.4); RED CELL DISTRIBUTION WIDTH 17.5 % (11.6-16.5); WHITE BLOOD COUNT 7.6 X10^3/uL (3.6-10.0)
[2019-01-21 05:32] LABS: ALANINE AMINOTRANSFERASE 7 Units/L (12-78); ALBUMIN 2.1 g/dL (3.4-5.0); ALKALINE PHOSPHATASE 76 Units/L (46-116); ASPARTATE AMINO TRANSFERASE 9 Units/L (15-37); BLOOD UREA NITROGEN 7 mg/dL (7-18); CALCIUM 8.1 mg/dL (8.5-10.1); CHLORIDE 101 mmol/L (98-107); COR CA(FOR HYPOALB) 9.6 mg/dL (8.5-10.1); COR NA(FOR HYPERGLY) 139 mmol/L (136-145); CREATININE 0.87 mg/dL (0.55-1.02); SODIUM 138 mmol/L (136-145); TOTAL PROTEIN 5.8 g/dL (6.4-8.2); eGFR NON BLACK RACES > 60 (>60)
[2019-01-21] MEDS ORDERED: POTASSIUM CHL 40 MEQ/NS 0.45% 500 ML IV PRN (05:52)
[2019-01-21] MEDS ORDERED: POTASSIUM CHL 60 MEQ/NS 0.45% 500 ML IV PRN (05:52)
[2019-01-21] MEDS ORDERED: POTASSIUM CHLORIDE LIQ 20 MEQ UDC PO PRN (05:52)
[2019-01-21] MEDS ORDERED: KLOR-CON PO PRN (05:52)
[2019-01-21] MEDS ORDERED: K-RIDER 10 MEQ/NS 100 ML 10 MEQ/100 ML BAG IV PRN (05:52)
[2019-01-21] MEDS ORDERED: MICRO K EXTEN CAP 10 MEQ PO PRN (05:52)
[2019-01-21 05:54] LABS: ANISOCYTOSIS SLIGHT; HYPOCHROMASIA 1+; OVALOCYTES PRESENT; PLATELET MORPHOLOGY COMMENT NORMAL (NORMAL)
[2019-01-21] MEDS: K-DUR TAB 20 MEQ PO PRN (06:31)
[2019-01-21] MEDS: MAGNESIUM SULFATE 1 GRAM/100 mL PREMIX 1 GM/100 ML BAG IV PRN ×2 (06:31→08:27)
[2019-01-21] MEDS: ROCEPHIN VIAL 1 GRAM IVP SCH (08:28)
[2019-01-21] MEDS: PULMICORT NEB TX 0.5 MG NEB SCH ×2 (09:07→20:30)
[2019-01-21] MEDS ORDERED: ULTRAM PO PRN (09:13)
[2019-01-21] MEDS ORDERED: BENTYL CAP 10 MG PO PRN (09:13)
[2019-01-21] MEDS: NS 1000 ML 1,000 ML IV SCH ×2 (09:15→22:17)
[2019-01-21] MEDS: DUONEB 0.5 MG/3 MG NEB SCH ×3 (09:39→17:02)
[2019-01-21] MEDS ORDERED: PHARMACY CONSULT - DOSE _____ XX SCH ×2 (10:00→14:00)
[2019-01-21] MEDS: ULTRAM PO PRN ×2 (10:10→19:00)
[2019-01-21] MEDS ORDERED: GLUCOPHAGE ONE ×2 (11:12→20:19)
[2019-01-21] MEDS: LOVENOX INJ 40 MG SYR SC SCH (11:28)
[2019-01-21] MEDS: HEMOCYTE-PLUS PO SCH (11:28)
[2019-01-21] MEDS: GLUCOPHAGE PO SCH ×2 (11:28→20:46)
[2019-01-21] MEDS: PriLOSEC PO SCH (11:29)
[2019-01-21] MEDS: ZIAC 5/6.25 MG PO SCH (11:29)
--- NOTE | 2019-01-21 13:50 | PCM.PROG ---
Progress Note - Progress Note for Day of Date of Exam: 01/21/19 - Subjective Subjective: 83 WF ADMITTED WITH WEAKNESS, AB, UTI, HYPONATREMIA. PT WAS STARTED ON IV HYDRATION WITH IV ATBX THERAPY. RESP CONSULT ON ADMISSION, STARTED ON PO ROBITUSSIN. ANEMIA PANEL OBTAINED. WILL REPEAT AM LABS - Past Medical Family Social History Past Med/Fam/Surg Hx: No changes since H&P Allergies: Allergies diphenhydramine [From Benadryl] Allergy (Verified 03/27/18 09:37) - Review of Systems ROS: No change since H&P - Vital Signs and I&O's Vital Signs: Temperature 98 F Pulse Rate [Right Brachial] 94 Pulse Rate 83 Respiratory Rate 20 Blood Pressure [Right Arm] 139/90 Blood Pressure [Left Arm] 120/59 Blood Pressure [Left Femoral 122/59 Artery] Blood Pressure 121/56 O2 Sat by Pulse Oximetry 98 Intake and Output: Intake & Output 01/19/19 01/20/19 01/21/19 01/22/19 11:59 11:59 11:59 11:59 Intake Total 950 / 950 Balance 950 / 950 - Physical Exam Oriented: Normal Eyes: Normal Ear: Normal Nose: Normal Throat: Normal Respiratory: Diminished, Rhonchi Cardiovascular: Murmur : Normal Auscultation: Bowel Sounds: Bruit Tenderness: Normal Skin: Decreased Turgur Musculoskeletal: Back:Thoracic, Back:Lumbar Psychiatric: Anxiety Affect: Anxious Speech Pattern: Clear, Appropriate - Laboratory and Diagnostics Result Diagrams: 01/21/19 04:05 01/21/19 04:05 Labs: 01/20/19 19:54 Urine,Clean Catch Urine Culture - Preliminary Laboratory WBC 7.6 X10^3/uL (3.6-10.0) 01/21/19 04:05 RBC 3.73 X10^6/uL (3.5-5.4) 01/21/19 04:05 Hgb 8.6 g/dL (12.0-16.0) L 01/21/19 04:05 Hct 26.9 % (36.0-47.0) L 01/21/19 04:05 MCV 72.2 fL (80.0-100.0) L 01/21/19 04:05 MCH 23.1 pg (27.0-34.0) L 01/21/19 04:05 MCHC 32.0 g/dL (33.0-35.0) L 01/21/19 04:05 RDW 17.5 % (11.6-16.5) H 01/21/19 04:05 Plt Count 306 X10^3/uL (150.0-450.0) 01/21/19 04:05 Plt Count Comment Adequate (ADEQUATE) 01/21/19 04:05 MPV 7.8 fL (7.4-11.0) 01/21/19 04:05 Neut % (Auto) 58.2 % (42.0-75.0) 01/21/19 04:05 Lymph % (Auto) 23.3 % (21.0-51.0) 01/21/19 04:05 [place] % (Auto) 7.6 % (0.0-13.0) 01/21/19 04:05 Eos % (Auto) 9.9 % (0.9-2.9) H 01/21/19 04:05 Baso % (Auto) 1.0 % (0.2-1.0) 01/21/19 04:05 Neut # (Auto) 4.4 x10^3/uL (2.2-4.8) 01/21/19 04:05 Lymph # (Auto) 1.8 X10^3/uL (1.3-2.9) 01/21/19 04:05 [place] # (Auto) 0.6 x10^3/uL (0.3-0.8) 01/21/19 04:05 Eos # (Auto) 0.8 x10^3/uL (0.0-0.2) H 01/21/19 04:05 Baso # (Auto) 0.1 X10^3/uL (0.0-0.1) 01/21/19 04:05 Absolute Nucleated RBC 0.0 /100WBC 01/21/19 04:05 Giant Platelets Rare 01/20/19 17:05 Plt Morphology Comment Normal (NORMAL) 01/21/19 04:05 RBC Morphology Abnormal (NORMAL) A 01/21/19 04:05 Hypochromasia 1+ A 01/21/19 04:05 Anisocytosis Slight A 01/21/19 04:05 Microcytosis Slight A 01/20/19 17:05 Ovalocytes Present 01/21/19 04:05 Sodium 138 mmol/L (136-145) 01/21/19 04:05 Corrected Sodium 139 mmol/L (136-145) 01/21/19 04:05 Potassium 3.5 mmol/L (3.5-5.1) 01/21/19 04:05 Chloride 101 mmol/L (98-107) 01/21/19 04:05 Carbon Dioxide 28.0 mmol/L (21-32) 01/21/19 04:05 BUN 7 mg/dL (7-18) 01/21/19 04:05 Creatinine 0.87 mg/dL (0.55-1.02) 01/21/19 04:05 Est GFR (MDRD) Af Amer > 60 (>60) 01/21/19 04:05 Est GFR (MDRD) Non-Af > 60 (>60) 01/21/19 04:05 Glucose 155 mg/dL (65-99) H 01/21/19 04:05 POC Glucose (mg/dL) 168 mg/dL (65-99) H 01/21/19 05:27 Calcium 8.1 mg/dL (8.5-10.1) L 01/21/19 04:05 Corrected Calcium 9.6 mg/dL (8.5-10.1) 01/21/19 04:05 Magnesium 1.5 mg/dL (1.7-2.9) L 01/21/19 04:27 Iron 11 ug/dL (50-175) L 01/21/19 08:51 Transferrin 182 mg/dL (202-364) L 01/21/19 08:51 Ferritin 52 ng/mL (8-252) 01/21/19 08:51 Total Bilirubin 0.20 mg/dL (0.2-1.0) 01/21/19 04:05 AST 9 Units/L (15-37) L 01/21/19 04:05 ALT 7 Units/L (12-78) L 01/21/19 04:05 Alkaline Phosphatase 76 Units/L (46-116) 01/21/19 04:05 Total Protein 5.8 g/dL (6.4-8.2) L 01/21/19 04:05 Albumin 2.1 g/dL (3.4-5.0) L 01/21/19 04:05 Globulin 3.7 g/dL (2.5-4.5) 01/21/19 04:05 Albumin/Globulin Ratio 0.6 Ratio (1.1-2.1) L 01/21/19 04:05 Vitamin B12 350 pg/mL (193-986) 01/21/19 08:51 Folate 10.1 ng/mL (>8.6) 01/21/19 08:51 Specimen Type Clean catch urine 01/20/19 19:52 Urine Color Yellow (YELLOW) 01/20/19 19:52 Urine Appearance Clear (CLEAR) 01/20/19 19:52 Urine pH 6.0 (5.0 - 8.0) 01/20/19 19:52 Ur Specific [place] 1.010 (1.000-1.030) 01/20/19 19:52 Urine Protein 2+ (NEGATIVE) 01/20/19 19:52 Urine Glucose (UA) 2+ (NEGATIVE) 01/20/19 19:52 Urine Ketones Negative (NEGATIVE) 01/20/19 19:52 Urine Occult Blood Negative (NEGATIVE) 01/20/19 19:52 Urine Nitrite Negative (NEGATIVE) 01/20/19 19:52 Urine Bilirubin Negative (NEGATIVE) 01/20/19 19:52 Urine Urobilinogen Normal (NORMAL) 01/20/19 19:52 Ur Leukocyte Esterase Negative (NEGATIVE) 01/20/19 19:52 Urine RBC 0-2 /HPF (NONE SEEN) 01/20/19 19:52 Urine WBC 0-2 /HPF (NONE SEEN) 01/20/19 19:52 Ur Squamous Epith Cells Many /HPF (NEGATIVE) 01/20/19 19:52 Urine Bacteria Trace /HPF (NEGATIVE) 01/20/19 19:52 Ur Culture Indicated? Yes/culture set up 01/20/19 19:52 - Plan (1) Weakness Status: Acute Plan: GENTLE IV HYDRATION. STRICT I & OS, AM LABS. CBC CMP MAG, UA/UC BC ON ADMISSION. RESP CONSULT. IV ATBX, SUPPLEMENTAL O2 (2) UTI (urinary tract infection) Status: Acute (3) CHF (congestive heart failure) Status: Acute (4) Hyponatremia Status: Acute (5) Diabetes mellitus, type II Status: Chronic (6) Essential (primary) hypertension Status: Chronic (7) Generalized anxiety disorder Status: Chronic (8) GERD (gastroesophageal reflux disease) Status: Chronic
[2019-01-21] MEDS ORDERED: NS 100 ML IV 100 ML with VENOFER 400 MG IV NR ×2 (15:00)
[2019-01-21] MEDS: ROBITUSSIN DM PO SCH ×3 (15:20→20:46)
[2019-01-21] MEDS: SNACK - Diabetic Appropriate PO SCH (21:21)
[2019-01-21] MEDS: HumuLIN R SUBCUT PRN (21:33)
[2019-01-22] MEDS: DUONEB 0.5 MG/3 MG NEB SCH ×4 (01:24→17:21)
[2019-01-22] MEDS: HumuLIN R SUBCUT PRN ×2 (06:20→17:10)
[2019-01-22 06:29] LABS: BASOPHILS % (AUTO) 0.4 % (0.2-1.0); EOSINOPHILS # (AUTO) 0.4 x10^3/uL (0.0-0.2); EOSINOPHILS % (AUTO) 4.9 % (0.9-2.9); HEMATOCRIT 24.4 % (36.0-47.0); HEMOGLOBIN 7.7 g/dL (12.0-16.0); LYMPHOCYTES % (AUTO) 25.5 % (21.0-51.0); MEAN CORPUSCULAR HEMOGLOBIN 23.1 pg (27.0-34.0); MEAN CORPUSCULAR HGB CONC 31.7 g/dL (33.0-35.0); MEAN PLATELET VOLUME 7.3 fL (7.4-11.0); MONOCYTES # (AUTO) 0.6 x10^3/uL (0.3-0.8); MONOCYTES % (AUTO) 7.6 % (0.0-13.0); NEUTROPHILS # (AUTO) 4.8 x10^3/uL (2.2-4.8); NEUTROPHILS % (AUTO) 61.6 % (42.0-75.0); PLATELET COUNT 291 X10^3/uL (150.0-450.0); RED BLOOD COUNT 3.34 X10^6/uL (3.5-5.4); RED CELL DISTRIBUTION WIDTH 17.5 % (11.6-16.5); WHITE BLOOD COUNT 7.7 X10^3/uL (3.6-10.0)
[2019-01-22] MEDS: ULTRAM PO PRN ×2 (06:40→14:37)
[2019-01-22 06:43] LABS: ALANINE AMINOTRANSFERASE 8 Units/L (12-78); ALBUMIN 1.9 g/dL (3.4-5.0); ALKALINE PHOSPHATASE 61 Units/L (46-116); ASPARTATE AMINO TRANSFERASE 11 Units/L (15-37); BLOOD UREA NITROGEN 3 mg/dL (7-18); CARBON DIOXIDE 27.8 mmol/L (21-32); CHLORIDE 106 mmol/L (98-107); COR CA(FOR HYPOALB) 9.7 mg/dL (8.5-10.1); COR NA(FOR HYPERGLY) 143 mmol/L (136-145); CREATININE 0.85 mg/dL (0.55-1.02); MAGNESIUM 1.6 mg/dL (1.7-2.9); SODIUM 141 mmol/L (136-145); TOTAL PROTEIN 5.2 g/dL (6.4-8.2); eGFR NON BLACK RACES > 60 (>60)
[2019-01-22 07:02] LABS: PLATELET MORPHOLOGY COMMENT NORMAL (NORMAL)
[2019-01-22 07:03] LABS: HYPOCHROMASIA 1+
[2019-01-22] MEDS ORDERED: GLUCOPHAGE ONE ×2 (07:26→19:41)
[2019-01-22] MEDS: ROCEPHIN VIAL 1 GRAM IVP SCH (08:03)
[2019-01-22] MEDS: GLUCOPHAGE PO SCH ×2 (08:04→20:18)
[2019-01-22] MEDS: PriLOSEC PO SCH (08:04)
[2019-01-22] MEDS: ROBITUSSIN DM PO SCH ×4 (08:04→20:19)
[2019-01-22] MEDS: ZIAC 5/6.25 MG PO SCH (08:04)
[2019-01-22] MEDS: HEMOCYTE-PLUS PO SCH (08:04)
[2019-01-22] MEDS: LOVENOX INJ 40 MG SYR SC SCH (08:05)
[2019-01-22] MEDS: PULMICORT NEB TX 0.5 MG NEB SCH ×2 (09:05→20:24)
[2019-01-22] MEDS: NS 1000 ML 1,000 ML IV SCH (13:39)
--- NOTE | 2019-01-22 15:30 | PCM.PROG ---
Progress Note - Progress Note for Day of Date of Exam: 01/22/19 - Subjective Subjective: 83 WF ADMITTED WITH WEAKNESS, AB, UTI, HYPONATREMIA. PT WAS STARTED ON IV HYDRATION WITH IV ATBX THERAPY ON ADMISSION. RESP THERAPY, ON PO ROBITUSSIN WITH REPORTS OF IMPROVING SPUTUM PRODUCTION. CO STILL FEELING VERY WEAK. SPOUSE REPORTS IMPROVED APPETITE SINCE ADMISSION. FE 11, IV IRON ORDERED FOR REPLACEMENT. SPUTUM CULTURE PENDING. REPEAT AM CXR. PHYSICAL THERAPY CONSULT - Past Medical Family Social History Past Med/Fam/Surg Hx: No changes since H&P Allergies: Allergies diphenhydramine [From Benadryl] Allergy (Verified 03/27/18 09:37) - Review of Systems ROS: No change since H&P - Vital Signs and I&O's Vital Signs: Temperature 98.7 F Pulse Rate [Right Brachial] 71 Pulse Rate 81 Respiratory Rate 20 Blood Pressure [Right Arm] 144/65 Blood Pressure [Left Arm] 120/59 Blood Pressure [Left Femoral 122/59 Artery] Blood Pressure 121/56 O2 Sat by Pulse Oximetry 96 Intake and Output: Intake & Output 01/20/19 01/21/19 01/22/19 01/23/19 11:59 11:59 11:59 11:59 Intake Total 950 / 950 2340 / 2340 1120 / 1120 Balance 950 / 950 2340 / 2340 1120 / 1120 - Physical Exam Oriented: Normal Eyes: Normal Ear: Normal Nose: Normal Throat: Normal Respiratory: Diminished, Rhonchi Cardiovascular: Murmur : Normal Auscultation: Bowel Sounds: Bruit Tenderness: Normal Skin: Decreased Turgur Musculoskeletal: Back:Thoracic, Back:Lumbar Psychiatric: Anxiety Affect: Anxious Speech Pattern: Clear, Appropriate - Laboratory and Diagnostics Result Diagrams: 01/22/19 05:52 01/22/19 05:52 Labs: 01/20/19 17:13 Blood Blood Culture - Preliminary 01/20/19 17:05 Blood Blood Culture - Preliminary 01/20/19 19:54 Urine,Clean Catch Urine Culture - Final Laboratory WBC 7.7 X10^3/uL (3.6-10.0) 01/22/19 05:52 RBC 3.34 X10^6/uL (3.5-5.4) L 01/22/19 05:52 Hgb 7.7 g/dL (12.0-16.0) L 01/22/19 05:52 Hct 24.4 % (36.0-47.0) L 01/22/19 05:52 MCV 73.0 fL (80.0-100.0) L 01/22/19 05:52 MCH 23.1 pg (27.0-34.0) L 01/22/19 05:52 MCHC 31.7 g/dL (33.0-35.0) L 01/22/19 05:52 RDW 17.5 % (11.6-16.5) H 01/22/19 05:52 Plt Count 291 X10^3/uL (150.0-450.0) 01/22/19 05:52 Plt Count Comment Adequate (ADEQUATE) 01/22/19 05:52 MPV 7.3 fL (7.4-11.0) L 01/22/19 05:52 Neut % (Auto) 61.6 % (42.0-75.0) 01/22/19 05:52 Lymph % (Auto) 25.5 % (21.0-51.0) 01/22/19 05:52 [place] % (Auto) 7.6 % (0.0-13.0) 01/22/19 05:52 Eos % (Auto) 4.9 % (0.9-2.9) H 01/22/19 05:52 Baso % (Auto) 0.4 % (0.2-1.0) 01/22/19 05:52 Neut # (Auto) 4.8 x10^3/uL (2.2-4.8) 01/22/19 05:52 Lymph # (Auto) 2.0 X10^3/uL (1.3-2.9) 01/22/19 05:52 [place] # (Auto) 0.6 x10^3/uL (0.3-0.8) 01/22/19 05:52 Eos # (Auto) 0.4 x10^3/uL (0.0-0.2) H 01/22/19 05:52 Baso # (Auto) 0.0 X10^3/uL (0.0-0.1) 01/22/19 05:52 Absolute Nucleated RBC 0.1 /100WBC 01/22/19 05:52 Giant Platelets Rare 01/20/19 17:05 Plt Morphology Comment Normal (NORMAL) 01/22/19 05:52 RBC Morphology Abnormal (NORMAL) A 01/22/19 05:52 Hypochromasia 1+ A 01/22/19 05:52 Anisocytosis Slight A 01/21/19 04:05 Microcytosis Slight A 01/20/19 17:05 Ovalocytes Present 01/21/19 04:05 Sodium 141 mmol/L (136-145) 01/22/19 05:52 Corrected Sodium 143 mmol/L (136-145) 01/22/19 05:52 Potassium 3.7 mmol/L (3.5-5.1) 01/22/19 05:52 Chloride 106 mmol/L (98-107) 01/22/19 05:52 Carbon Dioxide 27.8 mmol/L (21-32) 01/22/19 05:52 BUN 3 mg/dL (7-18) L 01/22/19 05:52 Creatinine 0.85 mg/dL (0.55-1.02) 01/22/19 05:52 Est GFR (MDRD) Af Amer > 60 (>60) 01/22/19 05:52 Est GFR (MDRD) Non-Af > 60 (>60) 01/22/19 05:52 Glucose 177 mg/dL (65-99) H 01/22/19 05:52 POC Glucose (mg/dL) 168 mg/dL (65-99) H 01/21/19 05:27 Calcium 8.0 mg/dL (8.5-10.1) L 01/22/19 05:52 Corrected Calcium 9.7 mg/dL (8.5-10.1) 01/22/19 05:52 Magnesium 1.6 mg/dL (1.7-2.9) L 01/22/19 05:52 Iron 11 ug/dL (50-175) L 01/21/19 08:51 Transferrin 182 mg/dL (202-364) L 01/21/19 08:51 Ferritin 52 ng/mL (8-252) 01/21/19 08:51 Total Bilirubin 0.10 mg/dL (0.2-1.0) L 01/22/19 05:52 AST 11 Units/L (15-37) L 01/22/19 05:52 ALT 8 Units/L (12-78) L 01/22/19 05:52 Alkaline Phosphatase 61 Units/L (46-116) 01/22/19 05:52 Total Protein 5.2 g/dL (6.4-8.2) L 01/22/19 05:52 Albumin 1.9 g/dL (3.4-5.0) L 01/22/19 05:52 Globulin 3.3 g/dL (2.5-4.5) 01/22/19 05:52 Albumin/Globulin Ratio 0.6 Ratio (1.1-2.1) L 01/22/19 05:52 Vitamin B12 350 pg/mL (193-986) 01/21/19 08:51 Folate 10.1 ng/mL (>8.6) 01/21/19 08:51 Specimen Type Clean catch urine 01/20/19 19:52 Urine Color Yellow (YELLOW) 01/20/19 19:52 Urine Appearance Clear (CLEAR) 01/20/19 19:52 Urine pH 6.0 (5.0 - 8.0) 01/20/19 19:52 Ur Specific [place] 1.010 (1.000-1.030) 01/20/19 19:52 Urine Protein 2+ (NEGATIVE) 01/20/19 19:52 Urine Glucose (UA) 2+ (NEGATIVE) 01/20/19 19:52 Urine Ketones Negative (NEGATIVE) 01/20/19 19:52 Urine Occult Blood Negative (NEGATIVE) 01/20/19 19:52 Urine Nitrite Negative (NEGATIVE) 01/20/19 19:52 Urine Bilirubin Negative (NEGATIVE) 01/20/19 19:52 Urine Urobilinogen Normal (NORMAL) 01/20/19 19:52 Ur Leukocyte Esterase Negative (NEGATIVE) 01/20/19 19:52 Urine RBC 0-2 /HPF (NONE SEEN) 01/20/19 19:52 Urine WBC 0-2 /HPF (NONE SEEN) 01/20/19 19:52 Ur Squamous Epith Cells Many /HPF (NEGATIVE) 01/20/19 19:52 Urine Bacteria Trace /HPF (NEGATIVE) 01/20/19 19:52 Ur Culture Indicated? Yes/culture set up 01/20/19 19:52 - Plan (1) Weakness Status: Acute Plan: GENTLE IV HYDRATION. STRICT I & OS, AM LABS. CBC CMP MAG, UA/UC BC. RESP CONSULT, SPUTUM CULTURE. DUO NEBS. IV ATBX, SUPPLEMENTAL O2 (2) UTI (urinary tract infection) Status: Acute (3) CHF (congestive heart failure) Status: Acute (4) Hyponatremia Status: Acute (5) Diabetes mellitus, type II Status: Chronic (6) Essential (primary) hypertension Status: Chronic (7) Generalized anxiety disorder Status: Chronic (8) GERD (gastroesophageal reflux disease) Status: Chronic (9) Murmur Status: Acute Plan: ECHO (10) Iron deficiency anemia Status: Acute
[2019-01-22] MEDS: K-DUR TAB 20 MEQ PO PRN (20:18)
[2019-01-22] MEDS: MAGNESIUM SULFATE 1 GRAM/100 mL PREMIX 1 GM/100 ML BAG IV PRN (20:19)
[2019-01-22] MEDS: SNACK - Diabetic Appropriate PO SCH (23:02)
[2019-01-23] MEDS: DUONEB 0.5 MG/3 MG NEB SCH ×3 (00:57→12:07)
[2019-01-23] MEDS: MAGNESIUM SULFATE 1 GRAM/100 mL PREMIX 1 GM/100 ML BAG IV PRN (03:32)
[2019-01-23 05:09] LABS: BASOPHILS # (AUTO) 0.1 X10^3/uL (0.0-0.1); BASOPHILS % (AUTO) 0.7 % (0.2-1.0); EOSINOPHILS # (AUTO) 0.5 x10^3/uL (0.0-0.2); EOSINOPHILS % (AUTO) 5.7 % (0.9-2.9); HEMATOCRIT 25.8 % (36.0-47.0); HEMOGLOBIN 8.1 g/dL (12.0-16.0); LYMPHOCYTES # (AUTO) 1.8 X10^3/uL (1.3-2.9); MEAN CORPUSCULAR HEMOGLOBIN 23.3 pg (27.0-34.0); MEAN CORPUSCULAR HGB CONC 31.6 g/dL (33.0-35.0); MEAN CORPUSCULAR VOLUME 73.6 fL (80.0-100.0); MEAN PLATELET VOLUME 7.6 fL (7.4-11.0); MONOCYTES # (AUTO) 0.5 x10^3/uL (0.3-0.8); MONOCYTES % (AUTO) 5.9 % (0.0-13.0); NEUTROPHILS % (AUTO) 67.7 % (42.0-75.0); PLATELET COUNT 363 X10^3/uL (150.0-450.0); RED CELL DISTRIBUTION WIDTH 17.7 % (11.6-16.5); WHITE BLOOD COUNT 8.8 X10^3/uL (3.6-10.0)
[2019-01-23 05:21] LABS: ALANINE AMINOTRANSFERASE 8 Units/L (12-78); ALBUMIN 2.1 g/dL (3.4-5.0); ALKALINE PHOSPHATASE 67 Units/L (46-116); ASPARTATE AMINO TRANSFERASE 8 Units/L (15-37); BLOOD UREA NITROGEN 3 mg/dL (7-18); CALCIUM 8.3 mg/dL (8.5-10.1); CARBON DIOXIDE 27.5 mmol/L (21-32); CHLORIDE 104 mmol/L (98-107); COR CA(FOR HYPOALB) 9.8 mg/dL (8.5-10.1); COR NA(FOR HYPERGLY) 142 mmol/L (136-145); CREATININE 0.83 mg/dL (0.55-1.02); SODIUM 140 mmol/L (136-145); TOTAL PROTEIN 5.5 g/dL (6.4-8.2); eGFR NON BLACK RACES > 60 (>60)
[2019-01-23] MEDS: NS 1000 ML 1,000 ML IV SCH ×2 (05:38→13:51)
[2019-01-23 05:50] LABS: ANISOCYTOSIS SLIGHT; HYPOCHROMASIA 1+; MICROCYTOSIS SLIGHT; PLATELET MORPHOLOGY COMMENT NORMAL (NORMAL)
[2019-01-23 05:51] LABS: OVALOCYTES SLIGHT
--- NOTE | 2019-01-23 05:59 | RAD ---
HISTORY: Cough, congestive heart failure Study: Chest PA and lateral Comparison: 01/20/2019 Findings: Patient is rotated to the left. The heart is enlarged. The jennifer are prominent and indistinct and the interstitium is prominent. Interstitial prominence has increased since the prior examination. This most likely represents interstitial edema superimposed on the patient's more chronic interstitial lung disease. No alveolar edema, alveolar infiltrates are identified. There is a small left pleural effusion present the bony thorax is unremarkable. IMPRESSION: Cardiomegaly with congestive heart failure and a small left pleural effusion Reported By:
[2019-01-23] MEDS ORDERED: MAALOX or MYLANTA PO PRN (07:26)
[2019-01-23] MEDS: PULMICORT NEB TX 0.5 MG NEB SCH (08:22)
[2019-01-23] MEDS ORDERED: LASIX IVP ONE ×2 (08:23→08:53)
[2019-01-23] MEDS ORDERED: GLUCOPHAGE ONE (08:28)
[2019-01-23] MEDS: ROBITUSSIN DM PO SCH ×2 (08:54→13:51)
[2019-01-23] MEDS: HEMOCYTE-PLUS PO SCH (08:55)
[2019-01-23] MEDS: GLUCOPHAGE PO SCH (08:55)
[2019-01-23] MEDS: ZIAC 5/6.25 MG PO SCH (08:55)
[2019-01-23] MEDS: PriLOSEC PO SCH (08:55)
[2019-01-23] MEDS: ROCEPHIN VIAL 1 GRAM IVP SCH (08:56)
[2019-01-23] MEDS: LOVENOX INJ 40 MG SYR SC SCH (08:56)
[2019-01-23] MEDS ORDERED: K-DUR TAB 20 MEQ PO SCH (09:00)
[2019-01-23] MEDS ORDERED: CARAFATE ORAL SUSP PO SCH (11:30)
[2019-01-23] MEDS ORDERED: ZOFRAN TAB 4 MG SL PRN (11:45)
[2019-01-23] MEDS ORDERED: ZOFRAN INJ 4 MG VIAL ONE (11:48)
[2019-01-23 16:00] VITALS: BP 137/63
== END 2019-01-23 16:15 | disposition home or self-care (01) | DRG 690 ==
LOC: MED/SURG → OBSVTOIN 16:07
PROVIDERS: ADMIT Internal Medicine; ATTEND Internal Medicine
DX: E87.1 Hypo-osmolality and hyponatremia; I11.0 Hypertensive heart disease with heart failure; M06.80 Other specified rheumatoid arthritis, unspecified site; R53.1 Weakness; R06.02 Shortness of breath; N39.0 Urinary tract infection, site not specified; D50.8 Other iron deficiency anemias; J20.8 Acute bronchitis due to other specified organisms; J90 Pleural effusion, not elsewhere classified; F41.8 Other specified anxiety disorders; R01.1 Cardiac murmur, unspecified; R26.89 Other abnormalities of gait and mobility; R94.31 Abnormal electrocardiogram [ECG] [EKG]; E86.0 Dehydration; E11.65 Type 2 diabetes mellitus with hyperglycemia; I50.9 Heart failure, unspecified; K21.9 Gastro-esophageal reflux disease without esophagitis
CPT/HCPCS: 36415; 71010; 71020; 71045; 71046; 80053; 81001; 82270; 82607; 82728; 82746; 83540; 83735; 84466; 85025; 87040; 87086; 93005; 93306; 94640; 94760; 97110; 97162; 97166; 97530; A4222; J0696; J1650; J1756; J1815; J1940; J2405; J3475; J7030; J7050; J7620; J7626

== ENCOUNTER 2019-11-03 19:25 | Inpatient (IN) ==
--- NOTE | 2019-11-03 19:48 | DR.GENAD ---
HPI Time Seen Time Seen by Provider: 11/03/19 19:38 PCP Primary Care Physician: MERLENE/BRONSON POST Complaint/Symptoms Chief Complaint Doctors Comments: 84 year old female with c/o generalized weakness today. She was witnessed to have a syncopal episode when she was being moved by EMS. Weakness worsens when she is upright. She takes BP medication and she has taken it this morning. Chief Complaint:: PT COMPLAINTS OF WEAKNESS HEADACHES AND NECK PAIN, EMS STATES WHEN TAKEN OVER TO STRETCHER PT BECOME DIAPHIORETIC AND PASSED OUT, PT SEEN MD TODAY ALSO, PT IN NO DISTRESS IN TRIAGE AND ANSERING QUESTIONS APPROPRIATLY. Self Treatment fo Chief Complaint: N/A Source History Provided: Patient and EMS Mode of Arrival Mode of Arrival: EMS Timing Onset of Chief Complaint: 11/03/19 PMH PMH Past Medical History: Yes Past Medical History: Anxiety, Arthritis, Coronary Artery Disease, Diabetes, Dyslipidemia and Hypertension Past Surgical History: Yes Surgical History: Cholecystectomy, Hysterectomy, Ortho Surgery and Tonsillectomy Past Surgical History Comment: LEFT KNEE Family History History of Family Medical Conditions: Yes Family Medical History: Diabetes Mellitus, Cancer and ID Social History Does patient currently use any type of tobacco product: No Have you used tobacco products in the last 12 months: No Type of Tobacco Use: None Does any household member use tobacco: No Alcohol Use: None Do you use any recreational Drugs:: No Lives With: Spouse Lives Where: Home infectious screening In the last 2 months have you had wt loss of >10#?: NO Have you had fever, night sweats or hemotysis?: No Have you traveled outside the country in the last 6 months?: No Isolation: Standard ROS Review of Systems Constitutional: Weakness Eyes: No Symptoms Reported ENTM: No Symptoms Reported Respiratoy: No Symptoms Reported Cardiovascular: No Symptoms Reported Gastrointestinal/Abdominal: No Symptoms Reported Genitourinary: No Symptoms Reported Neurological: Other (Syncopy) Musculoskeletal: No Symptoms Reported Integumentary: No Symptoms Reported All Other Systems: Reviewed and Negative PE Vital Signs Vitals: Temperature 98.9 F Pulse Rate [Left] 76 Pulse Rate 91 Respiratory Rate 18 Blood Pressure [Right Arm] 121/57 Blood Pressure 133/59 O2 Sat by Pulse Oximetry 97 General Limitations: No Limitations General Appearance: Alert, In No Apparent Distress and Other (chronically ill- appearing female in no distress. ) Head Head Exam: Atraumatic and Normocephalic Eyes Eye exam: Normal Appearance, PERRL, EOMI and Other (Mild conjunctival paleness) ENT ENT Exam: Normal Exam and Other (edentulous) Neck Neck Exam: Normal Inspection and Full ROM Chest Chest Inspection: Symmetric Chest Wall Rise Cardiovascular Cardiovascular Exam: Regular Rate and Normal Rhythm Abdominal Exam Abdominal Exam: Normal Inspection, Normal Bowel Sounds and Soft Extremities Extremities Exam: Other (ecchymotic spots on the posterior distal legs) Neurologic Neurological Exam: Alert and Oriented X3 Skin Skin Exam: Warm, Dry, Pallor (MIld pallor) and Other (Poor skin turgor) Other Exam Other Exam: Rectal: No stool in vault. No gross blood COURSE Consultation Called: 20:43 Consultation Comments: Call to Dr. Siddiqui regarding admission for blood transfusion ROR Labs Reviewed Laboratory Results Reviewed?: Yes Result Diagrams: 11/03/19 19:52 11/03/19 19:52 Laboratory: WBC 4.9 X10^3/uL (3.6-10.0) 11/03/19 19:52 RBC 2.64 X10^6/uL (3.5-5.4) L 11/03/19 19:52 Hgb 6.7 g/dL (12.0-16.0) L* 11/03/19 19:52 Hct 20.8 % (36.0-47.0) L 11/03/19 19:52 MCV 78.9 fL (80.0-100.0) L 11/03/19 19:52 MCH 25.5 pg (27.0-34.0) L 11/03/19 19:52 MCHC 32.3 g/dL (33.0-35.0) L 11/03/19 19:52 RDW 15.8 % (11.6-16.5) 11/03/19 19:52 Plt Count 275 X10^3/uL (150.0-450.0) 11/03/19 19:52 Plt Count Comment Adequate (ADEQUATE) 11/03/19 19:52 MPV 7.1 fL (7.4-11.0) L 11/03/19 19:52 Neut % (Auto) 80.1 % (42.0-75.0) H 11/03/19 19:52 Lymph % (Auto) 12.4 % (21.0-51.0) L 11/03/19 19:52 [place] % (Auto) 5.6 % (0.0-13.0) 11/03/19 19:52 Eos % (Auto) 0.9 % (0.9-2.9) 11/03/19 19:52 Baso % (Auto) 1.0 % (0.2-1.0) 11/03/19 19:52 Neut # (Auto) 3.9 x10^3/uL (2.2-4.8) 11/03/19 19:52 Lymph # (Auto) 0.6 X10^3/uL (1.3-2.9) L 11/03/19 19:52 [place] # (Auto) 0.3 x10^3/uL (0.3-0.8) 11/03/19 19:52 Eos # (Auto) 0.0 x10^3/uL (0.0-0.2) 11/03/19 19:52 Baso # (Auto) 0.0 X10^3/uL (0.0-0.1) 11/03/19 19:52 Absolute Nucleated RBC 0.1 /100WBC 11/03/19 19:52 Plt Morphology Comment Normal (NORMAL) 11/03/19 19:52 RBC Morphology Abnormal (NORMAL) A 11/03/19 19:52 Hypochromasia Slight A 11/03/19 19:52 PT 13.4 SECONDS (11.8-14.3) 11/03/19 19:52 INR Target Range - 11/03/19 19:52 INR 1.06 (0.8-1.3) 11/03/19 19:52 APTT 26.4 SECONDS (22.9-36.5) 11/03/19 19:52 PTT Comment - 11/03/19 19:52 Sodium 139 mmol/L (136-145) 11/03/19 19:52 Corrected Sodium 141 mmol/L (136-145) 11/03/19 19:52 Potassium 3.9 mmol/L (3.5-5.1) 11/03/19 19:52 Chloride 106 mmol/L (98-107) 11/03/19 19:52 Carbon Dioxide 28.7 mmol/L (21-32) 11/03/19 19:52 BUN 11 mg/dL (7-18) 11/03/19 19:52 Creatinine 1.06 mg/dL (0.55-1.02) H 11/03/19 19:52 Est GFR (MDRD) Af Amer > 60 (>60) 11/03/19 19:52 Est GFR (MDRD) Non-Af 52 (>60) L 11/03/19 19:52 Glucose 202 mg/dL (65-99) H 11/03/19 19:52 Calcium 7.5 mg/dL (8.5-10.1) L 11/03/19 19:52 Corrected Calcium 8.9 mg/dL (8.5-10.1) 11/03/19 19:52 Iron 10 ug/dL (50-175) L 11/03/19 19:52 Transferrin 200 mg/dL (202-364) L 11/03/19 19:52 Ferritin 31 ng/mL (8-252) 11/03/19 19:52 Total Bilirubin 0.10 mg/dL (0.2-1.0) L 11/03/19 19:52 AST 15 Units/L (15-37) 11/03/19 19:52 ALT 14 Units/L (12-78) 11/03/19 19:52 Alkaline Phosphatase 75 Units/L (46-116) 11/03/19 19:52 Creatine Kinase 11 Units/L (26-192) L 11/03/19 19:52 Troponin I < 0.02 ng/mL (0-1.5) 11/03/19 19:52 Total Protein 5.2 g/dL (6.4-8.2) L 11/03/19 19:52 Albumin 2.3 g/dL (3.4-5.0) L 11/03/19 19:52 Globulin 2.9 g/dL (2.5-4.5) 11/03/19 19:52 Albumin/Globulin Ratio 0.8 Ratio (1.1-2.1) L 11/03/19 19:52 Vitamin B12 > 2000 pg/mL (193-986) H 11/03/19 19:52 Folate > 20.0 ng/mL (>8.6) 11/03/19 19:52 Specimen Type Catherized urine 11/03/19 20:57 Urine Color Yellow (YELLOW) 11/03/19 20:57 Urine Appearance Hazy (CLEAR) 11/03/19 20:57 Urine pH 5.0 (5.0 - 8.0) 11/03/19 20:57 Ur Specific [place] 1.020 (1.000-1.030) 11/03/19 20:57 Urine Protein Negative (NEGATIVE) 11/03/19 20:57 Urine Glucose (UA) Negative (NEGATIVE) 11/03/19 20:57 Urine Ketones Negative (NEGATIVE) 11/03/19 20:57 Urine Occult Blood Negative (NEGATIVE) 11/03/19 20:57 Urine Nitrite Positive (NEGATIVE) 11/03/19 20:57 Urine Bilirubin Negative (NEGATIVE) 11/03/19 20:57 Urine Urobilinogen Normal (NORMAL) 11/03/19 20:57 Ur Leukocyte Esterase 2+ (NEGATIVE) 11/03/19 20:57 Urine RBC None seen /HPF (0-3) 11/03/19 20:57 Urine WBC 10-20 /HPF (0-5) A 11/03/19 20:57 Ur Squamous Epith Cells Rare /HPF (NEGATIVE) 11/03/19 20:57 Urine Bacteria 2+ /HPF (NEGATIVE) 11/03/19 20:57 Ur Culture Indicated? Yes/culture set up 11/03/19 20:57 Stool Description Ifob collection tube 11/03/19 20:32 Stl Occult Blood (IFOB) Positive (NEGATIVE) A 11/03/19 20:32 Blood Type A POSITIVE 11/03/19 19:52 Antibody Screen Negative 11/03/19 19:52 Crossmatch See Detail 11/03/19 19:52 EKG Rate: 80 Rhythm: NSR Block: RBBB Opioid Opioid Risk Tool Age (Daryn box if 16-45): No History of Preadolescent Sexual Abuse: No Total: 0 Total Score Risk Category: Low Risk Copyright: Carlos CHRISTY predicting aberrant behaviors Diagnosis Discharge Problem: Anemia Qualifiers: Anemia type: unspecified type Qualified Code(s): D64.9 - Anemia, unspecified UTI (urinary tract infection) Qualifiers: Urinary tract infection type: acute cystitis Instructions Forms: Excuse From Work Patient Portal
[2019-11-03] MEDS ORDERED: NS 1000 ML 1,000 ML IV SCH (20:00)
[2019-11-03 20:12] LABS: EOSINOPHILS % (AUTO) 0.9 % (0.9-2.9); HEMATOCRIT 20.8 % (36.0-47.0); LYMPHOCYTES # (AUTO) 0.6 X10^3/uL (1.3-2.9); LYMPHOCYTES % (AUTO) 12.4 % (21.0-51.0); MEAN CORPUSCULAR HEMOGLOBIN 25.5 pg (27.0-34.0); MEAN CORPUSCULAR HGB CONC 32.3 g/dL (33.0-35.0); MEAN CORPUSCULAR VOLUME 78.9 fL (80.0-100.0); MEAN PLATELET VOLUME 7.1 fL (7.4-11.0); MONOCYTES # (AUTO) 0.3 x10^3/uL (0.3-0.8); MONOCYTES % (AUTO) 5.6 % (0.0-13.0); NEUTROPHILS # (AUTO) 3.9 x10^3/uL (2.2-4.8); NEUTROPHILS % (AUTO) 80.1 % (42.0-75.0); PLATELET COUNT 275 X10^3/uL (150.0-450.0); RED BLOOD COUNT 2.64 X10^6/uL (3.5-5.4); RED CELL DISTRIBUTION WIDTH 15.8 % (11.6-16.5); WHITE BLOOD COUNT 4.9 X10^3/uL (3.6-10.0)
[2019-11-03 20:14] LABS: ALANINE AMINOTRANSFERASE 14 Units/L (12-78); ALBUMIN 2.3 g/dL (3.4-5.0); ALKALINE PHOSPHATASE 75 Units/L (46-116); ASPARTATE AMINO TRANSFERASE 15 Units/L (15-37); BLOOD UREA NITROGEN 11 mg/dL (7-18); CALCIUM 7.5 mg/dL (8.5-10.1); CARBON DIOXIDE 28.7 mmol/L (21-32); CHLORIDE 106 mmol/L (98-107); COR CA(FOR HYPOALB) 8.9 mg/dL (8.5-10.1); COR NA(FOR HYPERGLY) 141 mmol/L (136-145); CREATININE 1.06 mg/dL (0.55-1.02); SODIUM 139 mmol/L (136-145); TOTAL PROTEIN 5.2 g/dL (6.4-8.2); eGFR NON BLACK RACES 52 (>60)
[2019-11-03 20:16] LABS: CREATINE KINASE 11 Units/L (26-192); HEMOGLOBIN 6.7 g/dL (12.0-16.0); TROPONIN I < 0.02 ng/mL (0-1.5)
[2019-11-03 20:23] LABS: PLATELET MORPHOLOGY COMMENT NORMAL (NORMAL)
[2019-11-03 20:24] LABS: HYPOCHROMASIA SLIGHT
[2019-11-03] MEDS ORDERED: NS 1000 ML 1,000 ML ONE (20:27)
[2019-11-03 21:23] LABS: BILIRUBIN,URINE NEGATIVE (NEGATIVE); BLOOD/HEMOGLOBIN,URINE NEGATIVE (NEGATIVE); GLUCOSE, URINE NEGATIVE (NEGATIVE); KETONES,URINE NEGATIVE (NEGATIVE); LEUKOCYTE ESTERASE ,URINE 2+ (NEGATIVE); NITRITES,URINE POSITIVE (NEGATIVE); PROTEIN,URINE NEGATIVE (NEGATIVE); UROBILINOGEN,URINE NORMAL (NORMAL)
[2019-11-03 21:33] LABS: APPEARANCE,URINE HAZY (CLEAR); BACTERIA,URINE 2+ /HPF (NEGATIVE); COLOR,URINE YELLOW (YELLOW); RBC,URINE NONE SEEN /HPF (0-3); SQUAMOUS EPITHELIAL CELL,UR RARE /HPF (NEGATIVE)
[2019-11-03] MEDS ORDERED: LASIX IVP ONE (22:40)
[2019-11-03 22:50] LABS: IRON 10 ug/dL (50-175)
[2019-11-03] MEDS ORDERED: NS 250 ML IV 250 ML IV ONE (22:56)
[2019-11-03] MEDS ORDERED: ULTRAM ONE (22:57)
[2019-11-03] MEDS: ULTRAM PO PRN (23:15)
[2019-11-03 23:53] VITALS: BMI 15.7
[2019-11-03 23:53] LABS: CKMB % 3.6 % (<4); CREATINE KINASE 28 Units/L (26-192); CREATINE KINASE MB < 1.0 ng/mL (0-4.0); TROPONIN I < 0.02 ng/mL (0-1.5)
[2019-11-04] MEDS: ROCEPHIN VIAL 1 GRAM 1 G in NS 100 ML IV + SPIKE MINIBAG* 100 ML IV SCH ×3 (01:45→22:38)
[2019-11-04] MEDS: NS 1000 ML 1,000 ML IV SCH ×2 (02:35→20:13)
[2019-11-04 06:11] LABS: BASOPHILS % (AUTO) 0.7 % (0.2-1.0); EOSINOPHILS # (AUTO) 0.1 x10^3/uL (0.0-0.2); EOSINOPHILS % (AUTO) 2.5 % (0.9-2.9); HEMATOCRIT 33.8 % (36.0-47.0); HEMOGLOBIN 11.3 g/dL (12.0-16.0); LYMPHOCYTES # (AUTO) 1.2 X10^3/uL (1.3-2.9); LYMPHOCYTES % (AUTO) 23.7 % (21.0-51.0); MEAN CORPUSCULAR HGB CONC 33.3 g/dL (33.0-35.0); MONOCYTES # (AUTO) 0.4 x10^3/uL (0.3-0.8); MONOCYTES % (AUTO) 7.8 % (0.0-13.0); NEUTROPHILS # (AUTO) 3.4 x10^3/uL (2.2-4.8); NEUTROPHILS % (AUTO) 65.3 % (42.0-75.0); PLATELET COUNT 262 X10^3/uL (150.0-450.0); RED BLOOD COUNT 4.17 X10^6/uL (3.5-5.4); RED CELL DISTRIBUTION WIDTH 15.5 % (11.6-16.5); WHITE BLOOD COUNT 5.2 X10^3/uL (3.6-10.0)
[2019-11-04 06:30] LABS: ALANINE AMINOTRANSFERASE 13 Units/L (12-78); ALBUMIN 2.4 g/dL (3.4-5.0); ALKALINE PHOSPHATASE 79 Units/L (46-116); ASPARTATE AMINO TRANSFERASE 15 Units/L (15-37); BLOOD UREA NITROGEN 8 mg/dL (7-18); CALCIUM 7.4 mg/dL (8.5-10.1); CARBON DIOXIDE 30.3 mmol/L (21-32); CHLORIDE 107 mmol/L (98-107); CKMB % 6.7 % (<4); COR CA(FOR HYPOALB) 8.7 mg/dL (8.5-10.1); COR NA(FOR HYPERGLY) 142 mmol/L (136-145); CREATINE KINASE 15 Units/L (26-192); CREATINE KINASE MB < 1.0 ng/mL (0-4.0); CREATININE 0.95 mg/dL (0.55-1.02); SODIUM 141 mmol/L (136-145); TOTAL PROTEIN 5.5 g/dL (6.4-8.2); TROPONIN I < 0.02 ng/mL (0-1.5); eGFR NON BLACK RACES 59 (>60)
--- NOTE | 2019-11-04 10:23 | CT ---
HEAD AND CERVICAL SPINE CT WITHOUT IV CONTRASTCLINICAL INDICATION: headache neck painTECHNIQUE: Axial CT images from skull base to vertex without IV contrast. Multiple-row detector helical CT examination of the cervical spine without IV contrast. Axial, sagittal, and coronal reconstructed images. Dose reduction techniques including Automated Exposure Control (AEC) and adjustment of mA and kV were utlized.COMPARISON:June 21, 2019FINDINGS:Head CT:Diffuse patchy and confluent periventricular and subcortical hypoattenuation with associated volume loss. There is no evidence of acute infarction, intracranial hemorrhage, mass or mass effect, or abnormal extra-axial collection. The density of the larger dural venous sinuses is normal. Age-related, ex-vacuo dilatation of the ventricles and sulci. The skull base and calvarium are normal. The included paranasal sinuses and mastoid air cells are predominantly clear.Cervical Spine CT:There is no evidence of acute fracture or subluxation. Reversal of normal cervical spine lordosis secondary to severe multilevel degenerative disc disease. Findings worst at C4-C5, C5-C6, C6-C7 vertebral body heights are maintained.No aggressive osseous lesions are identified. Severe multilevel degenerative disc disease. There is no abnormality of the cranio-cervical junction. The prevertebral and paraspinal soft tissues demonstrate no abnormality.IMPRESSION:1. No acute intracranial abnormality.2. No acute abnormality of the cervical spine.3. Chronic microangiopathic changes and ex vacuo dilatation of the ventricles and sulci. Severe multilevel degenerative disc disease of the cervical spine. This could be further evaluated on a nonemergent basis by MRI if clinically indicated.Electronically signed by: EDUARDO HAYNES (Nov 04, 2019 10:22:29)
[2019-11-04] MEDS: ZEBETA TAB 5 MG PO SCH (10:38)
[2019-11-04] MEDS: HEMOCYTE-PLUS PO SCH (10:39)
[2019-11-04] MEDS ORDERED: NS 100 ML IV 100 ML with VENOFER 400 MG IV NR ×2 (11:00)
--- NOTE | 2019-11-04 11:02 | RAD ---
HISTORYSOBSTUDYPortable AP chestCOMPARISONMay 2018FINDINGSThere is a large hiatal hernia. The heart size is normal. 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 The lungs are grossly clear. Minimal dextroscoliosis of the dorsal spine is suggested.IMPRESSIONNo evidence for active cardiopulmonary disease. Unchanged large hiatal hernia.Electronically signed by: RANDOLPH KRISHNAMURTHY (Nov 04, 2019 11:00:44)
[2019-11-04 11:10] LABS: CKMB % 6.7 % (<4); CREATINE KINASE 15 Units/L (26-192); CREATINE KINASE MB < 1.0 ng/mL (0-4.0); TROPONIN I < 0.02 ng/mL (0-1.5)
[2019-11-04] MEDS: ULTRAM PO PRN ×2 (11:11→20:28)
--- NOTE | 2019-11-04 17:54 | DR.H&P ---
H&P - History & Physical for Day of: H&P Date: 11/03/19 - Chief Complaint Chief Complaint: weakness, lorenz, syncope - History of Present Illness History of Present Illness: PT IS 84 WF ER ADMISSION AFTER PRESENTING WITH FAMILY REPORTING PT IS VERY WEAK, MULTIPLE PASSING OUT EPISODES. SPOUSE REPORTS PT WILL "JUST GO OUT" LASTING SECONDS. PT HAD PMH OF CAD WITH VALVE REPLACEMENT. PT HAS HX OF ANEMIA WELL. PT WAS SEEN IN [place] ON SATURDAY FOR CARDIAC TESTS PER FAMILY. PTS HGB 6.7 ON ADMISSION. PT WAS ADMITTED FOR TREATMENT OF ACUTE ILLNESS. - Past Medical History Past Medical History: Coronary Artery Disease, Hypertension, Dyslipidemia, Diabetes, Anxiety, Arthritis - Past Surgical History Surgical History: Angioplasty/Stents, CABG/Valve Surgery, Cholecystectomy, Hysterectomy, Ortho Surgery, Tonsillectomy - Family History Family Medical History: Diabetes Mellitus, Cancer, [place] - Social History Does patient currently use any type of tobacco product: No Have you used tobacco products in the last 12 months: No Type of Tobacco Use: None Does any household member use tobacco: No Alcohol Use: None Drug Use: None - Medications Home Medications: diphenhydramine [From Benadryl] Allergy (Verified 11/03/19 19:50) CONTINUE taking the following medications bisoprolol fumarate 5 mg PO DAILY 11/03/19 [History] cilostazol 50 mg PO BID 11/03/19 [History] clopidogrel 75 mg PO DAILY 11/03/19 [History] dulaglutide [Trulicity] 0.75 mg SUBCUT Q2W 11/03/19 [History] tramadol 50 mg PO QID PRN 11/03/19 [History] - Review of Systems Constitutional: Weakness ENT: No Symptoms Reported Respiratory: SOB with Excertion Cardiovascular: Palpitations, Edema, Light Headedness Gastrointestinal: Nausea, Constipation Genitourinary: Frequency Musculoskeletal: Back Pain Skin: No Symptoms Reported Neurological: Weakness, Other ("FAINTING") - Physical Exam Vital Signs: Temperature 98.4 F Pulse Rate [Left] 76 Pulse Rate 91 Respiratory Rate 18 Blood Pressure [Left Arm] 157/67 Blood Pressure [Right Arm] 119/55 Blood Pressure 133/59 O2 Sat by Pulse Oximetry 98 Oriented: Person Eyes: Normal Ear: Normal Nose: Normal Throat: Normal Respiratory: RLL Diminished, LLL Diminished Cardiovascular: Murmur : Normal Auscultation: Bowel Sounds: Normal Palpation: Normal Tenderness: Normal Skin: Decreased Turgur Musculoskeletal: Back:Thoracic, Back:Lumbar, Motor Deficit Psychiatric: Anxiety Speech Pattern: Clear, Appropriate - Assessment/Plan (1) Syncopal episodes Status: Acute Plan: ADMIT, IV ATBX THERAPY. SERIAL CE, ANEMIA PANEL. OCCULT STOOL, GENTLE IV HYDRATION. STRICT I& OS, SUPPLEMENTAL O2. VERIFY HOME MEDICATION, TRANSFUSE 2U PRBC. BP AND CARDIAC MONITORING (2) Anemia Qualifiers: Anemia type: unspecified type Qualified Code(s): D64.9 - Anemia, unspecified Status: Acute (3) UTI (urinary tract infection) Qualifiers: Urinary tract infection type: acute cystitis Status: Acute (4) CHF (congestive heart failure) Status: Acute (5) Iron deficiency anemia Status: Acute (6) Weakness Status: Acute (7) Diabetes mellitus, type II Status: Chronic (8) Essential (primary) hypertension Status: Chronic (9) GERD (gastroesophageal reflux disease) Status: Chronic - Allergies Allergies/Adverse Reactions: Allergies Allergy/AdvReac Type Severity Reaction Status Date / Time diphenhydramine Allergy Verified 11/03/19 19:50 [From [place]]
--- NOTE | 2019-11-04 18:02 | PCM.PROG ---
Progress Note - Progress Note for Day of Date of Exam: 11/04/19 - Subjective Subjective: PT IS 84 WF ER ADMISSION WITH REPORTS OF SYNCOPE AND SYMPTOMATIC ANEMIA AND UTI. PT IS CURRENTLY ON IV ATBX, WITH UC PENDING. >100K GRAM NEG RODS GROWTH REPORTED. PT HAS HAD 2U PRBC WITH HGB 11.2 THIS AM. PT CONTINUES TO CO WEAKNESS AND INTRACTABLE LY AND NECK PAIN. PT STATES SHE MAY HAVE HURT HER NECK IN PRIOR FALL. SPOUSE REPORTS PT HAD TESTS PERFORMED AT [facility] IN [facility] ON SATURDAY, PLAN TO OBTAIN COPY OF RESULTS. PT TO HAVE HEAD CT AND C SPINE CT TODAY. CONTINUE WITH PAIN CONTROL AND H&H. DR FERRERA CONSULTED FOR GI WORK UP. - Past Medical Family Social History Past Med/Fam/Surg Hx: No changes since H&P Allergies: Allergies diphenhydramine [From Benadryl] Allergy (Verified 11/03/19 19:50) - Review of Systems ROS: No change since H&P - Vital Signs and I&O's Vital Signs: Temperature 98.4 F Pulse Rate [Left] 76 Pulse Rate 91 Respiratory Rate 18 Blood Pressure [Left Arm] 157/67 Blood Pressure [Right Arm] 119/55 Blood Pressure 133/59 O2 Sat by Pulse Oximetry 98 Intake and Output: Intake & Output 11/02/19 11/03/19 11/04/19 11/05/19 11:59 11:59 11:59 11:59 Intake Total 125 / 125 1220 / 1220 Output Total 2200 / 2200 300 / 300 Balance -2074 / -2074 920 / 920 - Physical Exam Oriented: Normal, Person Eyes: Normal Ear: Normal Nose: Normal Throat: Normal Respiratory: Diminished Cardiovascular: Murmur : Normal Auscultation: Bowel Sounds: Normal Tenderness: Normal Skin: Decreased Turgur Musculoskeletal: Back:Thoracic, Back:Lumbar, Motor Deficit Psychiatric: Anxiety Speech Pattern: Clear, Appropriate - Laboratory and Diagnostics Result Diagrams: 11/04/19 05:47 11/04/19 05:47 Labs: 11/03/19 20:57 Urine,Catheterized Urine Culture - Preliminary Laboratory WBC 5.2 X10^3/uL (3.6-10.0) 11/04/19 05:47 RBC 4.17 X10^6/uL (3.5-5.4) 11/04/19 05:47 Hgb 11.3 g/dL (12.0-16.0) L D 11/04/19 05:47 Hct 33.8 % (36.0-47.0) L 11/04/19 05:47 MCV 81.0 fL (80.0-100.0) 11/04/19 05:47 MCH 27.0 pg (27.0-34.0) 11/04/19 05:47 MCHC 33.3 g/dL (33.0-35.0) 11/04/19 05:47 RDW 15.5 % (11.6-16.5) 11/04/19 05:47 Plt Count 262 X10^3/uL (150.0-450.0) 11/04/19 05:47 Plt Count Comment Adequate (ADEQUATE) 11/03/19 19:52 MPV 7.0 fL (7.4-11.0) L 11/04/19 05:47 Neut % (Auto) 65.3 % (42.0-75.0) 11/04/19 05:47 Lymph % (Auto) 23.7 % (21.0-51.0) 11/04/19 05:47 [place] % (Auto) 7.8 % (0.0-13.0) 11/04/19 05:47 Eos % (Auto) 2.5 % (0.9-2.9) 11/04/19 05:47 Baso % (Auto) 0.7 % (0.2-1.0) 11/04/19 05:47 Neut # (Auto) 3.4 x10^3/uL (2.2-4.8) 11/04/19 05:47 Lymph # (Auto) 1.2 X10^3/uL (1.3-2.9) L 11/04/19 05:47 [place] # (Auto) 0.4 x10^3/uL (0.3-0.8) 11/04/19 05:47 Eos # (Auto) 0.1 x10^3/uL (0.0-0.2) 11/04/19 05:47 Baso # (Auto) 0.0 X10^3/uL (0.0-0.1) 11/04/19 05:47 Absolute Nucleated RBC 0.0 /100WBC 11/04/19 05:47 Plt Morphology Comment Normal (NORMAL) 11/03/19 19:52 RBC Morphology Abnormal (NORMAL) A 11/03/19 19:52 Hypochromasia Slight A 11/03/19 19:52 PT 13.4 SECONDS (11.8-14.3) 11/03/19 19:52 INR Target Range - 11/03/19 19:52 INR 1.06 (0.8-1.3) 11/03/19 19:52 APTT 26.4 SECONDS (22.9-36.5) 11/03/19 19:52 PTT Comment - 11/03/19 19:52 Sodium 141 mmol/L (136-145) 11/04/19 05:47 Corrected Sodium 142 mmol/L (136-145) 11/04/19 05:47 Potassium 3.6 mmol/L (3.5-5.1) 11/04/19 05:47 Chloride 107 mmol/L (98-107) 11/04/19 05:47 Carbon Dioxide 30.3 mmol/L (21-32) 11/04/19 05:47 BUN 8 mg/dL (7-18) 11/04/19 05:47 Creatinine 0.95 mg/dL (0.55-1.02) 11/04/19 05:47 Est GFR (MDRD) Af Amer > 60 (>60) 11/04/19 05:47 Est GFR (MDRD) Non-Af 59 (>60) 11/04/19 05:47 Glucose 124 mg/dL (65-99) H 11/04/19 05:47 POC Glucose (mg/dL) 133 mg/dL (65-99) H 11/04/19 16:02 Calcium 7.4 mg/dL (8.5-10.1) L 11/04/19 05:47 Corrected Calcium 8.7 mg/dL (8.5-10.1) 11/04/19 05:47 Iron 10 ug/dL (50-175) L 11/03/19 19:52 Transferrin 200 mg/dL (202-364) L 11/03/19 19:52 Ferritin 31 ng/mL (8-252) 11/03/19 19:52 Total Bilirubin 0.30 mg/dL (0.2-1.0) 11/04/19 05:47 AST 15 Units/L (15-37) 11/04/19 05:47 ALT 13 Units/L (12-78) 11/04/19 05:47 Alkaline Phosphatase 79 Units/L (46-116) 11/04/19 05:47 Creatine Kinase 15 Units/L (26-192) L 11/04/19 10:30 CK-MB (CK-2) < 1.0 ng/mL (0-4.0) 11/04/19 10:30 CK/CKMB % Calc 6.7 % (<4) 11/04/19 10:30 Troponin I < 0.02 ng/mL (0-1.5) 11/04/19 10:30 Total Protein 5.5 g/dL (6.4-8.2) L 11/04/19 05:47 Albumin 2.4 g/dL (3.4-5.0) L 11/04/19 05:47 Globulin 3.1 g/dL (2.5-4.5) 11/04/19 05:47 Albumin/Globulin Ratio 0.8 Ratio (1.1-2.1) L 11/04/19 05:47 Vitamin B12 > 2000 pg/mL (193-986) H 11/03/19 19:52 Folate > 20.0 ng/mL (>8.6) 11/03/19 19:52 Specimen Type Catherized urine 11/03/19 20:57 Urine Color Yellow (YELLOW) 11/03/19 20:57 Urine Appearance Hazy (CLEAR) 11/03/19 20:57 Urine pH 5.0 (5.0 - 8.0) 11/03/19 20:57 Ur Specific [place] 1.020 (1.000-1.030) 11/03/19 20:57 Urine Protein Negative (NEGATIVE) 11/03/19 20:57 Urine Glucose (UA) Negative (NEGATIVE) 11/03/19 20:57 Urine Ketones Negative (NEGATIVE) 11/03/19 20:57 Urine Occult Blood Negative (NEGATIVE) 11/03/19 20:57 Urine Nitrite Positive (NEGATIVE) 11/03/19 20:57 Urine Bilirubin Negative (NEGATIVE) 11/03/19 20:57 Urine Urobilinogen Normal (NORMAL) 11/03/19 20:57 Ur Leukocyte Esterase 2+ (NEGATIVE) 11/03/19 20:57 Urine RBC None seen /HPF (0-3) 11/03/19 20:57 Urine WBC 10-20 /HPF (0-5) A 11/03/19 20:57 Ur Squamous Epith Cells Rare /HPF (NEGATIVE) 11/03/19 20:57 Urine Bacteria 2+ /HPF (NEGATIVE) 11/03/19 20:57 Ur Culture Indicated? Yes/culture set up 11/03/19 20:57 Stool Description Ifob collection tube 11/03/19 20:32 Stl Occult Blood (IFOB) Positive (NEGATIVE) A 11/03/19 20:32 Blood Type A POSITIVE 11/03/19 19:52 Antibody Screen Negative 11/03/19 19:52 Crossmatch See Detail 11/03/19 19:52 - Plan (1) Syncopal episodes Status: Acute Plan: CT HEAD, CSPINE CT. IV ATBX THERAPY FOR UTI. SERIAL CE, ANEMIA PANEL ON ADMISSION, FE REPLACEMENT. OCCULT STOOL, GENTLE IV HYDRATION. STRICT I& OS, SUPPLEMENTAL O2. VERIFY HOME MEDICATION, HOLDING BLOOD THINNER. S/P TRANSFUSE 2U PRBC. BP AND CARDIAC MONITORING (2) Anemia Status: Acute Qualifiers: Anemia type: unspecified type Qualified Code(s): D64.9 - Anemia, unspecified (3) UTI (urinary tract infection) Status: Acute Qualifiers: Urinary tract infection type: acute cystitis (4) CHF (congestive heart failure) Status: Acute (5) Iron deficiency anemia Status: Acute (6) Weakness Status: Acute (7) Diabetes mellitus, type II Status: Chronic (8) Essential (primary) hypertension Status: Chronic (9) GERD (gastroesophageal reflux disease) Status: Chronic
[2019-11-04] MEDS ORDERED: ZOFRAN INJ 4 MG VIAL IVP PRN (19:23)
[2019-11-04] MEDS: PROTONIX INJ 40 MG VIAL IVP SCH (20:19)
[2019-11-05] MEDS: NS 1000 ML 1,000 ML IV SCH ×3 (02:12→18:08)
[2019-11-05 06:34] LABS: BASOPHILS % (AUTO) 0.7 % (0.2-1.0); EOSINOPHILS # (AUTO) 0.2 x10^3/uL (0.0-0.2); EOSINOPHILS % (AUTO) 3.2 % (0.9-2.9); LYMPHOCYTES # (AUTO) 1.3 X10^3/uL (1.3-2.9); LYMPHOCYTES % (AUTO) 24.5 % (21.0-51.0); MEAN CORPUSCULAR HEMOGLOBIN 27.2 pg (27.0-34.0); MEAN CORPUSCULAR HGB CONC 33.2 g/dL (33.0-35.0); MEAN CORPUSCULAR VOLUME 81.8 fL (80.0-100.0); MEAN PLATELET VOLUME 7.4 fL (7.4-11.0); MONOCYTES # (AUTO) 0.4 x10^3/uL (0.3-0.8); MONOCYTES % (AUTO) 8.1 % (0.0-13.0); NEUTROPHILS # (AUTO) 3.4 x10^3/uL (2.2-4.8); NEUTROPHILS % (AUTO) 63.5 % (42.0-75.0); PLATELET COUNT 234 X10^3/uL (150.0-450.0); RED BLOOD COUNT 4.03 X10^6/uL (3.5-5.4); RED CELL DISTRIBUTION WIDTH 15.6 % (11.6-16.5); WHITE BLOOD COUNT 5.4 X10^3/uL (3.6-10.0)
[2019-11-05 06:48] LABS: ALANINE AMINOTRANSFERASE 18 Units/L (12-78); ALBUMIN 2.1 g/dL (3.4-5.0); ALKALINE PHOSPHATASE 73 Units/L (46-116); ASPARTATE AMINO TRANSFERASE 25 Units/L (15-37); BLOOD UREA NITROGEN 9 mg/dL (7-18); CALCIUM 7.5 mg/dL (8.5-10.1); CARBON DIOXIDE 26.8 mmol/L (21-32); CHLORIDE 110 mmol/L (98-107); COR NA(FOR HYPERGLY) 144 mmol/L (136-145); CREATININE 0.84 mg/dL (0.55-1.02); SODIUM 143 mmol/L (136-145); eGFR NON BLACK RACES > 60 (>60)
[2019-11-05] MEDS: PROTONIX INJ 40 MG VIAL IVP SCH ×2 (08:50→20:24)
[2019-11-05] MEDS: HEMOCYTE-PLUS PO SCH (08:50)
[2019-11-05] MEDS: ZEBETA TAB 5 MG PO SCH (08:51)
[2019-11-05] MEDS: ULTRAM PO PRN (08:51)
--- NOTE | 2019-11-05 10:15 | DR.CONSULT ---
Consult - Consultation for Day of: Date: 11/04/19 - Chief Complaint Chief Complaint: Patient referred for postive hemoccult and anemia. Patient with complaints of dyspepsia, nausea, vomiting, and melena. - History of Present Illness History of Present Illness: Patient is a 84yo female who was referred for postive hemoccult and anemia. Patient with complaints of dyspepsia, nausea, vomiting yesterday, and melena with iron. Patient denies dysphagia, abdominal pain, constipation, diarrhea and hematochezia. Last colon was 01/12/10 which showed sigmoid diverticulosis, internal hemorrhoids and hyperplastic colon polyps. Last EGD was 12/15/09 distal esophagitis, irregular z-line, large hiatal hernia, erosive gastritis. Patient on plavix, had bovine aortic valvle placed 10/29/19. hgb 11.3 up from 6.7 after 2 units of PRBC, Hct 33.8, Plt 262, INR 1.06, BUN 8, Creatinine 0.95, Iron 10 - Past Medical History Past Medical History: Coronary Artery Disease, Hypertension, Dyslipidemia, Diabetes, Anxiety, Arthritis - Past Surgical History Surgical History: Angioplasty/Stents, CABG/Valve Surgery, Cholecystectomy, Hysterectomy, Ortho Surgery, Tonsillectomy - Family History Family Medical History: Diabetes Mellitus, Cancer, [place] - Social History Does patient currently use any type of tobacco product: No Have you used tobacco products in the last 12 months: No Type of Tobacco Use: None Does any household member use tobacco: No Alcohol Use: None Drug Use: None - Medications Home Medications: diphenhydramine [From Benadryl] Allergy (Verified 11/03/19 19:50) CONTINUE taking the following medications bisoprolol fumarate 5 mg PO DAILY 11/03/19 [History] cilostazol 50 mg PO BID 11/03/19 [History] clopidogrel 75 mg PO DAILY 11/03/19 [History] dulaglutide [Trulicity] 0.75 mg SUBCUT Q2W 11/03/19 [History] tramadol 50 mg PO QID PRN 11/03/19 [History] - Review of Systems Gastrointestinal: See HPI, Nausea, Vomiting, Melena. denies: Abdominal Pain, Diarrhea, Constipation, Hematochezia, Other - Physical Exam Vital Signs: Temperature 98.1 F Pulse Rate [Left] 76 Pulse Rate 91 Respiratory Rate 18 Blood Pressure [Left Arm] 167/73 Blood Pressure [Right Arm] 119/55 Blood Pressure 133/59 O2 Sat by Pulse Oximetry 98 Oriented: Normal Eyes: Normal Ear: Normal Nose: Normal Throat: Normal Respiratory: Clear Throughout Cardiovascular: Normal Auscultation: Bowel Sounds: Normal Palpation: Normal, Other (no distention). negative: Spleen Enlarged, Liver Enlarged, Mass Pulsatile Tenderness: Normal (no tenderness) Skin: Normal Musculoskeletal: Normal Psychiatric: Normal Mood Description: Calm Affect: Normal Speech Pattern: Clear, Appropriate - Plan Plan: Assessment. 1. Iron def anemia, melena, occult GI Bleed. Plan. 1. Protonix IV, Monitor Hgb, Transfuse as needed, EGD in am. Plan reviewed with Dr. De Guzman - Allergies Allergies/Adverse Reactions: Allergies Allergy/AdvReac Type Severity Reaction Status Date / Time diphenhydramine Allergy Verified 11/03/19 19:50 [From Benadryl]
[2019-11-05] MEDS: OFIRMEV IV 1000 MG VIAL 1,000 MG/100 ML VIAL IV PRN (11:13)
[2019-11-05] MEDS: NYSTATIN OINT TOP SCH ×2 (11:15→20:22)
[2019-11-05] MEDS ORDERED: DIPRIVAN VIAL 20 ML ONE (13:43)
[2019-11-05] MEDS: HumuLIN R SUBCUT PRN (17:04)
[2019-11-05] MEDS ORDERED: MAALOX or MYLANTA PO PRN (18:59)
[2019-11-05] MEDS: VOLTAREN 1 % GEL MULTI DOSE TUBE TOP SCH (20:23)
[2019-11-05] MEDS: ROCEPHIN VIAL 1 GRAM 1 G in NS 100 ML IV + SPIKE MINIBAG* 100 ML IV SCH (22:00)
[2019-11-06] MEDS: NS 1000 ML 1,000 ML IV SCH ×2 (05:37→16:34)
[2019-11-06 06:08] LABS: BASOPHILS % (AUTO) 0.5 % (0.2-1.0); EOSINOPHILS # (AUTO) 0.2 x10^3/uL (0.0-0.2); EOSINOPHILS % (AUTO) 2.7 % (0.9-2.9); HEMATOCRIT 34.6 % (36.0-47.0); HEMOGLOBIN 11.4 g/dL (12.0-16.0); LYMPHOCYTES # (AUTO) 1.4 X10^3/uL (1.3-2.9); LYMPHOCYTES % (AUTO) 23.3 % (21.0-51.0); MEAN CORPUSCULAR HEMOGLOBIN 26.8 pg (27.0-34.0); MEAN CORPUSCULAR HGB CONC 32.8 g/dL (33.0-35.0); MEAN CORPUSCULAR VOLUME 81.6 fL (80.0-100.0); MEAN PLATELET VOLUME 7.1 fL (7.4-11.0); MONOCYTES # (AUTO) 0.4 x10^3/uL (0.3-0.8); MONOCYTES % (AUTO) 6.8 % (0.0-13.0); NEUTROPHILS % (AUTO) 66.7 % (42.0-75.0); PLATELET COUNT 251 X10^3/uL (150.0-450.0); RED BLOOD COUNT 4.24 X10^6/uL (3.5-5.4); RED CELL DISTRIBUTION WIDTH 15.7 % (11.6-16.5); WHITE BLOOD COUNT 5.9 X10^3/uL (3.6-10.0)
[2019-11-06 06:31] LABS: ALANINE AMINOTRANSFERASE 15 Units/L (12-78); ALBUMIN 2.1 g/dL (3.4-5.0); ALKALINE PHOSPHATASE 71 Units/L (46-116); ASPARTATE AMINO TRANSFERASE 20 Units/L (15-37); BLOOD UREA NITROGEN 6 mg/dL (7-18); CALCIUM 7.4 mg/dL (8.5-10.1); CARBON DIOXIDE 25.5 mmol/L (21-32); CHLORIDE 112 mmol/L (98-107); COR CA(FOR HYPOALB) 8.9 mg/dL (8.5-10.1); COR NA(FOR HYPERGLY) 146 mmol/L (136-145); CREATININE 0.82 mg/dL (0.55-1.02); SODIUM 145 mmol/L (136-145); TOTAL PROTEIN 5.1 g/dL (6.4-8.2); eGFR NON BLACK RACES > 60 (>60)
[2019-11-06] MEDS: ULTRAM PO PRN ×3 (06:51→20:38)
[2019-11-06] MEDS: PROTONIX INJ 40 MG VIAL IVP SCH ×2 (08:49→20:36)
[2019-11-06] MEDS: HEMOCYTE-PLUS PO SCH (08:49)
[2019-11-06] MEDS: ZEBETA TAB 5 MG PO SCH (08:49)
[2019-11-06] MEDS: NYSTATIN OINT TOP SCH ×2 (09:04→20:33)
[2019-11-06] MEDS: VOLTAREN 1 % GEL MULTI DOSE TUBE TOP SCH ×4 (09:45→20:36)
[2019-11-06] MEDS: OFIRMEV IV 1000 MG VIAL 1,000 MG/100 ML VIAL IV PRN (09:53)
[2019-11-06] MEDS: HumuLIN R SUBCUT PRN (11:43)
--- NOTE | 2019-11-06 14:11 | PCM.PROG ---
Progress Note - Progress Note for Day of Date of Exam: 11/06/19 - Subjective Subjective: PT IS 84 WF ER ADMISSION WITH REPORTS OF SYNCOPE AND SYMPTOMATIC ANEMIA AND UTI.ECOLI IN URINE, ROCEPHIN DC TO [facility] IV DAILY. PT HAS HAD 2U PRBC WITH HGB 11.4 THIS AM. PT HAD EGD PER DR FERRERA YESTERDAY WITH MULTPLE ULCERS AND LARGE HIATAL HERNIA. WE WILL CONTINUE PPI BID AND ENCOURAGE PO INTAKE. PT/OT TO WORK WITH PT. PT CO ANXIETY ABOUT LIMITED MOBILITY. DISCUSSED WITH FAMILY SWING BED THERAPY AFTER IMPROVEMENT OF ACUTE ILLNESS. OBTAIN ECHO AND CAROTID FROM [facility] - Past Medical Family Social History Past Med/Fam/Surg Hx: No changes since H&P Allergies: Allergies diphenhydramine [From Benadryl] Allergy (Verified 11/03/19 19:50) - Review of Systems ROS: No change since H&P - Vital Signs and I&O's Vital Signs: Temperature 98.1 F Pulse Rate [Right Brachial] 67 Pulse Rate [Left] 64 Pulse Rate 91 Respiratory Rate 17 Blood Pressure [Left Arm] 147/67 Blood Pressure [Right Arm] 174/72 Blood Pressure 133/59 O2 Sat by Pulse Oximetry 99 Intake and Output: Intake & Output 11/04/19 11/05/19 11/06/19 11/07/19 11:59 11:59 11:59 11:59 Intake Total 125 / 125 2340 / 2340 1100 / 1100 Output Total 2200 / 2200 1550 / 1550 2350 / 2350 Balance -2075 / -2075 790 / 790 -1250 / -1250 - Physical Exam Oriented: Normal Eyes: Normal Ear: Normal Nose: Normal Throat: Normal Respiratory: Diminished Cardiovascular: Normal : Normal Auscultation: Bowel Sounds: Normal Tenderness: Normal (no tenderness) Skin: Normal Musculoskeletal: Normal Psychiatric: Normal Mood Description: Calm Affect: Normal Speech Pattern: Clear, Appropriate - Laboratory and Diagnostics Result Diagrams: 11/06/19 05:38 11/06/19 05:38 Labs: 11/03/19 20:57 Urine,Catheterized Urine Culture - Final Escherichia Coli Laboratory WBC 5.9 X10^3/uL (3.6-10.0) 11/06/19 05:38 RBC 4.24 X10^6/uL (3.5-5.4) 11/06/19 05:38 Hgb 11.4 g/dL (12.0-16.0) L 11/06/19 05:38 Hct 34.6 % (36.0-47.0) L 11/06/19 05:38 MCV 81.6 fL (80.0-100.0) 11/06/19 05:38 MCH 26.8 pg (27.0-34.0) L 11/06/19 05:38 MCHC 32.8 g/dL (33.0-35.0) L 11/06/19 05:38 RDW 15.7 % (11.6-16.5) 11/06/19 05:38 Plt Count 251 X10^3/uL (150.0-450.0) 11/06/19 05:38 Plt Count Comment Adequate (ADEQUATE) 11/03/19 19:52 MPV 7.1 fL (7.4-11.0) L 11/06/19 05:38 Neut % (Auto) 66.7 % (42.0-75.0) 11/06/19 05:38 Lymph % (Auto) 23.3 % (21.0-51.0) 11/06/19 05:38 [place] % (Auto) 6.8 % (0.0-13.0) 11/06/19 05:38 Eos % (Auto) 2.7 % (0.9-2.9) 11/06/19 05:38 Baso % (Auto) 0.5 % (0.2-1.0) 11/06/19 05:38 Neut # (Auto) 4.0 x10^3/uL (2.2-4.8) 11/06/19 05:38 Lymph # (Auto) 1.4 X10^3/uL (1.3-2.9) 11/06/19 05:38 [place] # (Auto) 0.4 x10^3/uL (0.3-0.8) 11/06/19 05:38 Eos # (Auto) 0.2 x10^3/uL (0.0-0.2) 11/06/19 05:38 Baso # (Auto) 0.0 X10^3/uL (0.0-0.1) 11/06/19 05:38 Absolute Nucleated RBC 0.0 /100WBC 11/06/19 05:38 Plt Morphology Comment Normal (NORMAL) 11/03/19 19:52 RBC Morphology Abnormal (NORMAL) A 11/03/19 19:52 Hypochromasia Slight A 11/03/19 19:52 PT 13.4 SECONDS (11.8-14.3) 11/03/19 19:52 INR Target Range - 11/03/19 19:52 INR 1.06 (0.8-1.3) 11/03/19 19:52 APTT 26.4 SECONDS (22.9-36.5) 11/03/19 19:52 PTT Comment - 11/03/19 19:52 Sodium 145 mmol/L (136-145) 11/06/19 05:38 Corrected Sodium 146 mmol/L (136-145) H 11/06/19 05:38 Potassium 3.7 mmol/L (3.5-5.1) 11/06/19 05:38 Chloride 112 mmol/L (98-107) H 11/06/19 05:38 Carbon Dioxide 25.5 mmol/L (21-32) 11/06/19 05:38 BUN 6 mg/dL (7-18) L 11/06/19 05:38 Creatinine 0.82 mg/dL (0.55-1.02) 11/06/19 05:38 Est GFR (MDRD) Af Amer > 60 (>60) 11/06/19 05:38 Est GFR (MDRD) Non-Af > 60 (>60) 11/06/19 05:38 Glucose 131 mg/dL (65-99) H 11/06/19 05:38 POC Glucose (mg/dL) 166 mg/dL (65-99) H 11/06/19 11:12 Calcium 7.4 mg/dL (8.5-10.1) L 11/06/19 05:38 Corrected Calcium 8.9 mg/dL (8.5-10.1) 11/06/19 05:38 Iron 10 ug/dL (50-175) L 11/03/19 19:52 Transferrin 200 mg/dL (202-364) L 11/03/19 19:52 Ferritin 31 ng/mL (8-252) 11/03/19 19:52 Total Bilirubin 0.20 mg/dL (0.2-1.0) 11/06/19 05:38 AST 20 Units/L (15-37) 11/06/19 05:38 ALT 15 Units/L (12-78) 11/06/19 05:38 Alkaline Phosphatase 71 Units/L (46-116) 11/06/19 05:38 Creatine Kinase 15 Units/L (26-192) L 11/04/19 10:30 CK-MB (CK-2) < 1.0 ng/mL (0-4.0) 11/04/19 10:30 CK/CKMB % Calc 6.7 % (<4) 11/04/19 10:30 Troponin I < 0.02 ng/mL (0-1.5) 11/04/19 10:30 Total Protein 5.1 g/dL (6.4-8.2) L 11/06/19 05:38 Albumin 2.1 g/dL (3.4-5.0) L 11/06/19 05:38 Globulin 3.0 g/dL (2.5-4.5) 11/06/19 05:38 Albumin/Globulin Ratio 0.7 Ratio (1.1-2.1) L 11/06/19 05:38 Vitamin B12 > 2000 pg/mL (193-986) H 11/03/19 19:52 Folate > 20.0 ng/mL (>8.6) 11/03/19 19:52 Specimen Type Catherized urine 11/03/19 20:57 Urine Color Yellow (YELLOW) 11/03/19 20:57 Urine Appearance Hazy (CLEAR) 11/03/19 20:57 Urine pH 5.0 (5.0 - 8.0) 11/03/19 20:57 Ur Specific [place] 1.020 (1.000-1.030) 11/03/19 20:57 Urine Protein Negative (NEGATIVE) 11/03/19 20:57 Urine Glucose (UA) Negative (NEGATIVE) 11/03/19 20:57 Urine Ketones Negative (NEGATIVE) 11/03/19 20:57 Urine Occult Blood Negative (NEGATIVE) 11/03/19 20:57 Urine Nitrite Positive (NEGATIVE) 11/03/19 20:57 Urine Bilirubin Negative (NEGATIVE) 11/03/19 20:57 Urine Urobilinogen Normal (NORMAL) 11/03/19 20:57 Ur Leukocyte Esterase 2+ (NEGATIVE) 11/03/19 20:57 Urine RBC None seen /HPF (0-3) 11/03/19 20:57 Urine WBC 10-20 /HPF (0-5) A 11/03/19 20:57 Ur Squamous Epith Cells Rare /HPF (NEGATIVE) 11/03/19 20:57 Urine Bacteria 2+ /HPF (NEGATIVE) 11/03/19 20:57 Ur Culture Indicated? Yes/culture set up 11/03/19 20:57 Stool Description Ifob collection tube 11/03/19 20:32 Stl Occult Blood (IFOB) Positive (NEGATIVE) A 11/03/19 20:32 Blood Type A POSITIVE 11/03/19 19:52 Antibody Screen Negative 11/03/19 19:52 Crossmatch See Detail 11/03/19 19:52 - Plan (1) Syncopal episodes Status: Acute Plan: CT HEAD, CSPINE CT. IV ATBX THERAPY FOR UTI. SERIAL CE, ANEMIA PANEL ON ADMISSION, FE REPLACEMENT. OCCULT STOOL, GENTLE IV HYDRATION. STRICT I& OS, SUPPLEMENTAL O2. VERIFY HOME MEDICATION, HOLDING BLOOD THINNER. S/P TRANSFUSE 2U PRBC. BP AND CARDIAC MONITORING (2) Anemia Status: Acute Qualifiers: Anemia type: unspecified type Qualified Code(s): D64.9 - Anemia, unspecified (3) UTI (urinary tract infection) Status: Acute Qualifiers: Urinary tract infection type: acute cystitis (4) CHF (congestive heart failure) Status: Acute (5) Iron deficiency anemia Status: Acute (6) Weakness Status: Acute (7) Diabetes mellitus, type II Status: Chronic (8) Essential (primary) hypertension Status: Chronic (9) GERD (gastroesophageal reflux disease) Status: Chronic
[2019-11-06] MEDS: LEVAQUIN PREMIX IV 500 MG 500 MG/100 ML BAG IV SCH (16:49)
[2019-11-06] MEDS ORDERED: MILK OF MAGNESIA PO PRN (19:58)
[2019-11-06] MEDS: COLACE CAP 100 MG PO PRN (20:35)
[2019-11-07] MEDS: NS 1000 ML 1,000 ML IV SCH ×2 (04:48→18:17)
[2019-11-07 06:45] LABS: ALANINE AMINOTRANSFERASE 16 Units/L (12-78); ALKALINE PHOSPHATASE 66 Units/L (46-116); ASPARTATE AMINO TRANSFERASE 28 Units/L (15-37); BLOOD UREA NITROGEN 8 mg/dL (7-18); CALCIUM 7.3 mg/dL (8.5-10.1); CARBON DIOXIDE 25.2 mmol/L (21-32); CHLORIDE 110 mmol/L (98-107); COR CA(FOR HYPOALB) 8.9 mg/dL (8.5-10.1); COR NA(FOR HYPERGLY) 143 mmol/L (136-145); CREATININE 0.73 mg/dL (0.55-1.02); SODIUM 142 mmol/L (136-145); eGFR NON BLACK RACES > 60 (>60)
[2019-11-07 07:15] LABS: BASOPHILS % (AUTO) 0.8 % (0.2-1.0); EOSINOPHILS # (AUTO) 0.2 x10^3/uL (0.0-0.2); EOSINOPHILS % (AUTO) 3.3 % (0.9-2.9); HEMATOCRIT 32.9 % (36.0-47.0); HEMOGLOBIN 10.9 g/dL (12.0-16.0); LYMPHOCYTES # (AUTO) 1.3 X10^3/uL (1.3-2.9); LYMPHOCYTES % (AUTO) 26.3 % (21.0-51.0); MEAN CORPUSCULAR HGB CONC 33.1 g/dL (33.0-35.0); MEAN CORPUSCULAR VOLUME 81.6 fL (80.0-100.0); MEAN PLATELET VOLUME 7.6 fL (7.4-11.0); MONOCYTES # (AUTO) 0.3 x10^3/uL (0.3-0.8); MONOCYTES % (AUTO) 6.9 % (0.0-13.0); NEUTROPHILS % (AUTO) 62.7 % (42.0-75.0); PLATELET COUNT 250 X10^3/uL (150.0-450.0); RED BLOOD COUNT 4.03 X10^6/uL (3.5-5.4); RED CELL DISTRIBUTION WIDTH 16.2 % (11.6-16.5); WHITE BLOOD COUNT 4.8 X10^3/uL (3.6-10.0)
[2019-11-07] MEDS ORDERED: PHARMACY CONSULT - TPN XX SCH (09:00)
[2019-11-07] MEDS: NYSTATIN OINT TOP SCH ×2 (09:09→20:59)
[2019-11-07] MEDS: HEMOCYTE-PLUS PO SCH (09:09)
[2019-11-07] MEDS: LEVAQUIN PREMIX IV 500 MG 500 MG/100 ML BAG IV SCH (09:09)
[2019-11-07] MEDS: PROTONIX INJ 40 MG VIAL IVP SCH ×2 (09:10→20:59)
[2019-11-07] MEDS: ZEBETA TAB 5 MG PO SCH (09:10)
[2019-11-07] MEDS: VOLTAREN 1 % GEL MULTI DOSE TUBE TOP SCH ×4 (09:10→21:00)
[2019-11-07] MEDS: ALBUMIN HUMAN 25%- 100 ML 100 ML IV SCH (10:21)
[2019-11-07] MEDS ORDERED: CLINIMIX 4.25 %/10 % 1,000 ML with MVI INJ (ADULT) 10 ML IV SCH ×2 (13:00)
--- NOTE | 2019-11-07 14:58 | CT ---
ABDOMEN/PELVIS WITH CONHISTORY: abdominal pain, anemiaComparison:NoneTechnique:Multiple axial images of the abdomen and pelvis were obtained from the lung bases to the pubic symphysis following the administration of IV contrast as well as oral contrast . Dose reduction techniques including Automated Exposure Control (AEC) and adjustment of mA and kV were utlized.Findings:The heart is normal in size. There is no pericardial effusion. Small bilateral pleural effusions. 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 Large hiatal hernia.Liver and spleen are normal in size, enhancement characteristics and contour. No focal lesions. The portal vein is patent. No ductal dilitation. Gallbladder absent. The pancreas is unremarkable. Adrenal glands are normal. Kidneys enhance symmetrically without hydronephrosis or nephrolithiasis.No bowel obstruction or inflammation. Diverticulosis without focal diverticular inflammation. There is a calcified mesenteric mass measuring approximately 2.6 x 2.3 cm on series 4, image 42 . No free fluid or fluid collections.Air within the urinary bladder. Uterus absent. No free fluid or abnormal pelvic lymph nodes.No aggressive osseous lesions.IMPRESSION:1. No definite source of abdominal pain or anemia identified on this examination.2. Calcified mesenteric mass. This is nonspecific but could represent sclerosing mesenteritis or, less likely, carcinoid. Correlate clinically.3. Bilateral pleural effusions with scarring and emphysema of the lung bases.4. Air within the urinary bladder. Correlate with any recent catheterization as well as urinalysis.Electronically signed by: EDUARDO HAYNES (Nov 07, 2019 14:56:49)
[2019-11-08] MEDS: ULTRAM PO PRN ×3 (01:30→21:00)
[2019-11-08 06:12] LABS: BASOPHILS % (AUTO) 0.5 % (0.2-1.0); EOSINOPHILS # (AUTO) 0.2 x10^3/uL (0.0-0.2); EOSINOPHILS % (AUTO) 2.8 % (0.9-2.9); HEMATOCRIT 33.9 % (36.0-47.0); HEMOGLOBIN 11.2 g/dL (12.0-16.0); LYMPHOCYTES # (AUTO) 1.2 X10^3/uL (1.3-2.9); LYMPHOCYTES % (AUTO) 20.3 % (21.0-51.0); MEAN CORPUSCULAR HEMOGLOBIN 27.1 pg (27.0-34.0); MEAN CORPUSCULAR HGB CONC 33.1 g/dL (33.0-35.0); MEAN CORPUSCULAR VOLUME 81.8 fL (80.0-100.0); MEAN PLATELET VOLUME 7.3 fL (7.4-11.0); MONOCYTES # (AUTO) 0.4 x10^3/uL (0.3-0.8); MONOCYTES % (AUTO) 7.3 % (0.0-13.0); NEUTROPHILS # (AUTO) 4.1 x10^3/uL (2.2-4.8); NEUTROPHILS % (AUTO) 69.1 % (42.0-75.0); PLATELET COUNT 234 X10^3/uL (150.0-450.0); RED BLOOD COUNT 4.14 X10^6/uL (3.5-5.4); RED CELL DISTRIBUTION WIDTH 16.4 % (11.6-16.5); WHITE BLOOD COUNT 5.9 X10^3/uL (3.6-10.0)
[2019-11-08] MEDS: HumuLIN R SUBCUT PRN ×2 (06:32→20:54)
[2019-11-08 06:39] LABS: ALANINE AMINOTRANSFERASE 18 Units/L (12-78); ALBUMIN 2.9 g/dL (3.4-5.0); ALKALINE PHOSPHATASE 64 Units/L (46-116); ASPARTATE AMINO TRANSFERASE 21 Units/L (15-37); BLOOD UREA NITROGEN 7 mg/dL (7-18); CARBON DIOXIDE 28.1 mmol/L (21-32); CHLORIDE 108 mmol/L (98-107); COR CA(FOR HYPOALB) 8.9 mg/dL (8.5-10.1); COR NA(FOR HYPERGLY) 144 mmol/L (136-145); CREATININE 0.79 mg/dL (0.55-1.02); SODIUM 142 mmol/L (136-145); TOTAL PROTEIN 5.7 g/dL (6.4-8.2); eGFR NON BLACK RACES > 60 (>60)
[2019-11-08] MEDS ORDERED: K-DUR TAB 20 MEQ PO PRN (07:24)
[2019-11-08] MEDS ORDERED: POTASSIUM CHL 60 MEQ/NS 0.45% 500 ML IV PRN (07:24)
[2019-11-08] MEDS ORDERED: POTASSIUM CHLORIDE LIQ 20 MEQ UDC PO PRN (07:24)
[2019-11-08] MEDS ORDERED: MICRO K EXTEN CAP 10 MEQ PO PRN (07:24)
[2019-11-08] MEDS ORDERED: K-RIDER 10 MEQ/NS 100 ML 10 MEQ/100 ML BAG IV PRN (07:24)
[2019-11-08] MEDS ORDERED: KLOR-CON PO PRN (07:24)
[2019-11-08] MEDS ORDERED: POTASSIUM CHL 40 MEQ/NS 0.45% 500 ML IV PRN (07:24)
[2019-11-08] MEDS: LEVAQUIN PREMIX IV 500 MG 500 MG/100 ML BAG IV SCH (08:12)
[2019-11-08] MEDS: ALBUMIN HUMAN 25%- 100 ML 100 ML IV SCH (08:13)
[2019-11-08] MEDS: ZEBETA TAB 5 MG PO SCH (08:14)
[2019-11-08] MEDS: HEMOCYTE-PLUS PO SCH (08:14)
[2019-11-08] MEDS: PROTONIX INJ 40 MG VIAL IVP SCH ×2 (08:14→20:54)
[2019-11-08] MEDS: NYSTATIN OINT TOP SCH ×2 (08:19→20:53)
[2019-11-08] MEDS: VOLTAREN 1 % GEL MULTI DOSE TUBE TOP SCH ×4 (08:19→20:53)
[2019-11-08 10:10] LABS: MAGNESIUM 2.3 mg/dL (1.7-2.9)
[2019-11-08] MEDS: NS 1000 ML 1,000 ML IV SCH ×2 (12:25→20:54)
[2019-11-08] MEDS: CLINIMIX 4.25 %/10 % 1,000 ML with MVI INJ (ADULT) 10 ML, TPN ELECTROLYTES 20 ML IV SCH ×3 (12:26)
--- NOTE | 2019-11-08 19:38 | PCM.PROG ---
Progress Note - Progress Note for Day of Date of Exam: 11/07/19 - Subjective Subjective: IS BEING TREATED FOR ANEMIA, HYPOTENSION, UTI, AND ABDOMINAL PAIN. SHE HAD AN EGD ON 11/05 WHICH REVEALED EXTENSIVE ULCERATIONS EXTENDING THROUGHOUT THE LOWER TWO THIRDS OF THE ESOPHAGUS AND A LARGE HIATAL HERNIA. TODAY, SHE IS ALERT AND ORIENTED, LYING IN BED ON MORNING ROUNDS. SHE CONTINUES WITH COMPLAINTS OF WEAKNESS AND ABDOMINAL PAIN TODAY. ON EXAMINATION, HEART IS REGULAR IN RATE AND RHYTHM. BILATERAL LUNGS ARE NOTED WITH DIMINISHED LUNG SOUNDS THROUGHOUT. ABDOMEN IS ROUND, SOFT AND NOTED WITH DIFFUSE TENDERNESS. NORMAL BOWEL SOUNDS ARE NOTED IN ALL QUADRANTS. HER VITALS THIS MORNING ARE: 98.0-69-18-97%-184/84. LABS WERE OBTAINED. ABNORMAL LAB VALUES INCLUDE THE FOLLOWING: HGB10.9, HCT 32.9, CHLORIDE 110, GLUCOSE 125, CALCIUM 7.3, TOTAL PROTEIN 5.0, ALBUMIN 2.0. URINE CULTURE REVEALED GROWTH OF E.COLI. SHE IS CURRENTLY RECEIVING LEVAQUIN 500MG IV DAILY, NS AT KVO, HUMULIN R SLIDING SCALE, IV PROTONIX, THE POTASSIUM AND MAGNESIUM PROTOCOLS, AND HOME MEDICATIONS WERE RESUMED. WE WILL CONTINUE WITH [facility] PLAN OF CARE TODAY AND OBTAIN AN ABDOMEN/PELVIS CT WITH CONTRAST. WE WILL START TPN AND ALBUMIN FOR NUTRITIONAL SUPPORT. OTHERWISE, WE WILL FOLLOW UP WITH AM LABS AND CONTINUE TO MONITOR. - Past Medical Family Social History Past Med/Fam/Surg Hx: No changes since H&P Allergies: Allergies diphenhydramine [From Benadryl] Allergy (Verified 11/03/19 19:50) - Review of Systems ROS: No change since H&P - Vital Signs and I&O's Vital Signs: Temperature 98.6 F Pulse Rate [Right Brachial] 66 Pulse Rate [Left] 64 Pulse Rate 91 Respiratory Rate 18 Blood Pressure [Left Arm] 156/79 Blood Pressure [Right Arm] 180/77 Blood Pressure 133/59 O2 Sat by Pulse Oximetry 97 Intake and Output: Intake & Output 11/06/19 11/07/19 11/08/19 11/09/19 11:59 11:59 11:59 11:59 Intake Total 1100 / 1100 1260 / 1260 1800 / 1800 930 / 930 Output Total 2350 / 2350 Balance -1250 / -1250 1260 / 1260 1800 / 1800 930 / 930 - Physical Exam Oriented: Normal Eyes: Normal Ear: Normal Nose: Normal Throat: Normal Respiratory: Generalized, Diminished Cardiovascular: Normal : Normal Auscultation: Bowel Sounds: Normal Palpation: Normal Tenderness: Diffuse, Mild Skin: Normal Musculoskeletal: Normal Psychiatric: Normal Mood Description: Calm Affect: Normal Speech Pattern: Clear, Appropriate - Laboratory and Diagnostics Result Diagrams: 11/08/19 05:40 11/08/19 05:40 Labs: 11/03/19 20:57 Urine,Catheterized Urine Culture - Final Escherichia Coli Laboratory WBC 5.9 X10^3/uL (3.6-10.0) 11/08/19 05:40 RBC 4.14 X10^6/uL (3.5-5.4) 11/08/19 05:40 Hgb 11.2 g/dL (12.0-16.0) L 11/08/19 05:40 Hct 33.9 % (36.0-47.0) L 11/08/19 05:40 MCV 81.8 fL (80.0-100.0) 11/08/19 05:40 MCH 27.1 pg (27.0-34.0) 11/08/19 05:40 MCHC 33.1 g/dL (33.0-35.0) 11/08/19 05:40 RDW 16.4 % (11.6-16.5) 11/08/19 05:40 Plt Count 234 X10^3/uL (150.0-450.0) 11/08/19 05:40 Plt Count Comment Adequate (ADEQUATE) 11/03/19 19:52 MPV 7.3 fL (7.4-11.0) L 11/08/19 05:40 Neut % (Auto) 69.1 % (42.0-75.0) 11/08/19 05:40 Lymph % (Auto) 20.3 % (21.0-51.0) L 11/08/19 05:40 [place] % (Auto) 7.3 % (0.0-13.0) 11/08/19 05:40 Eos % (Auto) 2.8 % (0.9-2.9) 11/08/19 05:40 Baso % (Auto) 0.5 % (0.2-1.0) 11/08/19 05:40 Neut # (Auto) 4.1 x10^3/uL (2.2-4.8) 11/08/19 05:40 Lymph # (Auto) 1.2 X10^3/uL (1.3-2.9) L 11/08/19 05:40 [place] # (Auto) 0.4 x10^3/uL (0.3-0.8) 11/08/19 05:40 Eos # (Auto) 0.2 x10^3/uL (0.0-0.2) 11/08/19 05:40 Baso # (Auto) 0.0 X10^3/uL (0.0-0.1) 11/08/19 05:40 Absolute Nucleated RBC 0.0 /100WBC 11/08/19 05:40 Plt Morphology Comment Normal (NORMAL) 11/03/19 19:52 RBC Morphology Abnormal (NORMAL) A 11/03/19 19:52 Hypochromasia Slight A 11/03/19 19:52 PT 13.4 SECONDS (11.8-14.3) 11/03/19 19:52 INR Target Range - 11/03/19 19:52 INR 1.06 (0.8-1.3) 11/03/19 19:52 APTT 26.4 SECONDS (22.9-36.5) 11/03/19 19:52 PTT Comment - 11/03/19 19:52 Sodium 142 mmol/L (136-145) 11/08/19 05:40 Corrected Sodium 144 mmol/L (136-145) 11/08/19 05:40 Potassium 3.2 mmol/L (3.5-5.1) L 11/08/19 05:40 Chloride 108 mmol/L (98-107) H 11/08/19 05:40 Carbon Dioxide 28.1 mmol/L (21-32) 11/08/19 05:40 BUN 7 mg/dL (7-18) 11/08/19 05:40 Creatinine 0.79 mg/dL (0.55-1.02) 11/08/19 05:40 Est GFR (MDRD) Af Amer > 60 (>60) 11/08/19 05:40 Est GFR (MDRD) Non-Af > 60 (>60) 11/08/19 05:40 Glucose 173 mg/dL (65-99) H 11/08/19 05:40 POC Glucose (mg/dL) 152 mg/dL (65-99) H 11/08/19 16:38 Calcium 8.0 mg/dL (8.5-10.1) L 11/08/19 05:40 Corrected Calcium 8.9 mg/dL (8.5-10.1) 11/08/19 05:40 Magnesium 2.3 mg/dL (1.7-2.9) 11/08/19 05:40 Magnesium 2.3 mg/dL (1.7-2.9) 11/08/19 05:40 Iron 10 ug/dL (50-175) L 11/03/19 19:52 Transferrin 200 mg/dL (202-364) L 11/03/19 19:52 Ferritin 31 ng/mL (8-252) 11/03/19 19:52 Total Bilirubin 0.40 mg/dL (0.2-1.0) 11/08/19 05:40 AST 21 Units/L (15-37) 11/08/19 05:40 ALT 18 Units/L (12-78) 11/08/19 05:40 Alkaline Phosphatase 64 Units/L (46-116) 11/08/19 05:40 Creatine Kinase 15 Units/L (26-192) L 11/04/19 10:30 CK-MB (CK-2) < 1.0 ng/mL (0-4.0) 11/04/19 10:30 CK/CKMB % Calc 6.7 % (<4) 11/04/19 10:30 Troponin I < 0.02 ng/mL (0-1.5) 11/04/19 10:30 Total Protein 5.7 g/dL (6.4-8.2) L 11/08/19 05:40 Albumin 2.9 g/dL (3.4-5.0) L 11/08/19 05:40 Globulin 2.8 g/dL (2.5-4.5) 11/08/19 05:40 Albumin/Globulin Ratio 1.0 Ratio (1.1-2.1) L 11/08/19 05:40 Vitamin B12 > 2000 pg/mL (193-986) H 11/03/19 19:52 Folate > 20.0 ng/mL (>8.6) 11/03/19 19:52 Specimen Type Catherized urine 11/03/19 20: Urine Color Yellow (YELLOW) 11/03/19 20: Urine Appearance Hazy (CLEAR) 11/03/19 20: Urine pH 5.0 (5.0 - 8.0) 11/03/19 20: Ur Specific [place] 1.020 (1.000-1.030) 11/03/19 20: Urine Protein Negative (NEGATIVE) 11/03/19 20: Urine Glucose (UA) Negative (NEGATIVE) 11/03/19 20: Urine Ketones Negative (NEGATIVE) 11/03/19: Urine Occult Blood Negative (NEGATIVE) 11/03/19 Urine Nitrite Positive (NEGATIVE) 11/03/19: Urine Bilirubin Negative (NEGATIVE) 11/03/19 20: Urine Urobilinogen Normal (NORMAL) 11/03/19 20: Ur Leukocyte Esterase 2+ (NEGATIVE) 11/03/19 20: Urine RBC None seen /HPF (0-3) 11/03/19 20: Urine WBC 10-20 /HPF (0-5) A 11/03/19 20: Ur Squamous Epith Cells Rare /HPF (NEGATIVE) 11/03/19 20: Urine Bacteria 2+ /HPF (NEGATIVE) 11/03/19 20: Ur Culture Indicated? Yes/culture set up 11/03/19 20:57 Stool Description Ifob collection tube 11/03/19 20:32 Stl Occult Blood (IFOB) Positive (NEGATIVE) A 11/03/19 20:32 Blood Type A POSITIVE 11/03/19 19:52 Antibody Screen Negative 11/03/19 19:52 Crossmatch See Detail 11/03/19 19:52 - Plan (1) UTI (urinary tract infection) Status: Acute Qualifiers: Urinary tract infection type: acute cystitis Plan: levaquin 500mg iv daily, continue to monitor (2) Abdominal pain Status: Acute Qualifiers: Abdominal location: generalized Qualified Code(s): R10.84 - Generalized abdominal pain Plan: obtain abdomen/pelvis ct with contrast, continue to monitor (3) Weakness Status: Acute (4) Anemia Status: Acute Qualifiers: Anemia type: unspecified type Qualified Code(s): D64.9 - Anemia, unspecified Plan: continue to monitor
--- NOTE | 2019-11-08 22:19 | PCM.PROG ---
Progress Note - Progress Note for Day of Date of Exam: 11/08/19 - Subjective Subjective: IS BEING TREATED FOR ANEMIA, HYPOTENSION, UTI, AND ABDOMINAL PAIN. SHE HAD AN EGD ON 11/05 WHICH REVEALED EXTENSIVE ULCERATIONS EXTENDING THROUGHOUT THE LOWER TWO THIRDS OF THE ESOPHAGUS AND A LARGE HIATAL HERNIA. TODAY, SHE IS ALERT AND ORIENTED, LYING IN BED ON MORNING ROUNDS. SHE CONTINUES WITH COMPLAINTS OF WEAKNESS AND ABDOMINAL PAIN TODAY. ON EXAMINATION, HEART IS REGULAR IN RATE AND RHYTHM. BILATERAL LUNGS ARE NOTED WITH DIMINISHED LUNG SOUNDS THROUGHOUT. ABDOMEN IS ROUND, SOFT AND NOTED WITH DIFFUSE TENDERNESS. NORMAL BOWEL SOUNDS ARE NOTED IN ALL QUADRANTS. HER VITALS THIS MORNING ARE: 98.3-69-18-99%-185/83. LABS WERE OBTAINED. ABNORMAL LAB VALUES INCLUDE THE FOLLOWING: HGB 11.2, HCT 33.9, POTASSIUM 3.2, CHLORIDE 108, GLUCOSE 173, CALCIUM 8.0, TOTAL PROTEIN 5.7, ALBUMIN 2.9. URINE CULTURE REVEALED GROWTH OF E.COLI. ABD/PELVIS CT REVEALED: 1. No definite source of abdominal pain or anemia identified on this examination. 2. Calcified mesenteric mass. 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 Correlate clinically. 3. 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 4. Air within the urinary bladder. Correlate with any recent catheterization as well as urinalysis. SHE IS CURRENTLY R ECEIVING LEVAQUIN 500MG IV DAILY, NS AT KVO, HUMULIN R SLIDING SCALE, IV PROTONIX, THE POTASSIUM AND MAGNESIUM PROTOCOLS, AND HOME MEDICATIONS WERE RESUMED. WE WILL CONTINUE WITH CURRENT PLAN OF CARE TODAY. OTHERWISE, WE WILL FOLLOW UP WITH AM LABS AND CONTINUE TO MONITOR. - Past Medical Family Social History Past Med/Fam/Surg Hx: No changes since H&P Allergies: Allergies diphenhydramine [From Benadryl] Allergy (Verified 11/03/19 19:50) - Review of Systems ROS: No change since H&P - Vital Signs and I&O's Vital Signs: Temperature 98.6 F Pulse Rate [Right Brachial] 66 Pulse Rate [Left] 64 Pulse Rate 91 Respiratory Rate 18 Blood Pressure [Left Arm] 156/79 Blood Pressure [Right Arm] 180/77 Blood Pressure 133/59 O2 Sat by Pulse Oximetry 97 Intake and Output: Intake & Output 11/06/19 11/07/19 11/08/19 11/09/19 11:59 11:59 11:59 11:59 Intake Total 1100 / 1100 1260 / 1260 1800 / 1800 930 / 930 Output Total 2350 / 2350 Balance -1250 / -1250 1260 / 1260 1800 / 1800 930 / 930 - Physical Exam Oriented: Normal Eyes: Normal Ear: Normal Nose: Normal Throat: Normal Respiratory: Generalized, Diminished Cardiovascular: Normal : Normal Auscultation: Bowel Sounds: Normal Tenderness: Diffuse, Mild Skin: Normal Musculoskeletal: Normal Psychiatric: Normal Mood Description: Calm Affect: Normal Speech Pattern: Clear, Appropriate - Laboratory and Diagnostics Result Diagrams: 11/08/19 05:40 11/08/19 05:40 Labs: 11/03/19 20:57 Urine,Catheterized Urine Culture - Final Escherichia Coli Laboratory WBC 5.9 X10^3/uL (3.6-10.0) 11/08/19 05:40 RBC 4.14 X10^6/uL (3.5-5.4) 11/08/19 05:40 Hgb 11.2 g/dL (12.0-16.0) L 11/08/19 05:40 Hct 33.9 % (36.0-47.0) L 11/08/19 05:40 MCV 81.8 fL (80.0-100.0) 11/08/19 05:40 MCH 27.1 pg (27.0-34.0) 11/08/19 05:40 MCHC 33.1 g/dL (33.0-35.0) 11/08/19 05:40 RDW 16.4 % (11.6-16.5) 11/08/19 05:40 Plt Count 234 X10^3/uL (150.0-450.0) 11/08/19 05:40 Plt Count Comment Adequate (ADEQUATE) 11/03/19 19:52 MPV 7.3 fL (7.4-11.0) L 11/08/19 05:40 Neut % (Auto) 69.1 % (42.0-75.0) 11/08/19 05:40 Lymph % (Auto) 20.3 % (21.0-51.0) L 11/08/19 05:40 [place] % (Auto) 7.3 % (0.0-13.0) 11/08/19 05:40 Eos % (Auto) 2.8 % (0.9-2.9) 11/08/19 05:40 Baso % (Auto) 0.5 % (0.2-1.0) 11/08/19 05:40 Neut # (Auto) 4.1 x10^3/uL (2.2-4.8) 11/08/19 05:40 Lymph # (Auto) 1.2 X10^3/uL (1.3-2.9) L 11/08/19 05:40 [place] # (Auto) 0.4 x10^3/uL (0.3-0.8) 11/08/19 05:40 Eos # (Auto) 0.2 x10^3/uL (0.0-0.2) 11/08/19 05:40 Baso # (Auto) 0.0 X10^3/uL (0.0-0.1) 11/08/19 05:40 Absolute Nucleated RBC 0.0 /100WBC 11/08/19 05:40 Plt Morphology Comment Normal (NORMAL) 11/03/19 19:52 RBC Morphology Abnormal (NORMAL) A 11/03/19 19:52 Hypochromasia Slight A 11/03/19 19:52 PT 13.4 SECONDS (11.8-14.3) 11/03/19 19:52 INR Target Range - 11/03/19 19:52 INR 1.06 (0.8-1.3) 11/03/19 19:52 APTT 26.4 SECONDS (22.9-36.5) 11/03/19 19:52 PTT Comment - 11/03/19 19:52 Sodium 142 mmol/L (136-145) 11/08/19 05:40 Corrected Sodium 144 mmol/L (136-145) 11/08/19 05:40 Potassium 3.2 mmol/L (3.5-5.1) L 11/08/19 05:40 Chloride 108 mmol/L (98-107) H 11/08/19 05:40 Carbon Dioxide 28.1 mmol/L (21-32) 11/08/19 05:40 BUN 7 mg/dL (7-18) 11/08/19 05:40 Creatinine 0.79 mg/dL (0.55-1.02) 11/08/19 05:40 Est GFR (MDRD) Af Amer > 60 (>60) 11/08/19 05:40 Est GFR (MDRD) Non-Af > 60 (>60) 11/08/19 05:40 Glucose 173 mg/dL (65-99) H 11/08/19 05:40 POC Glucose (mg/dL) 177 mg/dL (65-99) H 11/08/19 19:58 Calcium 8.0 mg/dL (8.5-10.1) L 11/08/19 05:40 Corrected Calcium 8.9 mg/dL (8.5-10.1) 11/08/19 05:40 Magnesium 2.3 mg/dL (1.7-2.9) 11/08/19 05:40 Magnesium 2.3 mg/dL (1.7-2.9) 11/08/19 05:40 Iron 10 ug/dL (50-175) L 11/03/19 19:52 Transferrin 200 mg/dL (202-364) L 11/03/19 19:52 Ferritin 31 ng/mL (8-252) 11/03/19 19:52 Total Bilirubin 0.40 mg/dL (0.2-1.0) 11/08/19 05:40 AST 21 Units/L (15-37) 11/08/19 05:40 ALT 18 Units/L (12-78) 11/08/19 05:40 Alkaline Phosphatase 64 Units/L (46-116) 11/08/19 05:40 Creatine Kinase 15 Units/L (26-192) L 11/04/19 10:30 CK-MB (CK-2) < 1.0 ng/mL (0-4.0) 11/04/19 10:30 CK/CKMB % Calc 6.7 % (<4) 11/04/19 10:30 Troponin I < 0.02 ng/mL (0-1.5) 11/04/19 10:30 Total Protein 5.7 g/dL (6.4-8.2) L 11/08/19 05:40 Albumin 2.9 g/dL (3.4-5.0) L 02/16/20 05:40 Globulin 2.8 g/dL (2.5-4.5) 11/08/19 05:40 Albumin/Globulin Ratio 1.0 Ratio (1.1-2.1) L 11/08/19 05:40 Vitamin B12 > 2000 pg/mL (193-986) H 11/03/19 19:52 Folate > 20.0 ng/mL (>8.6) 11/03/19 19:52 Specimen Type Catherized urine 11/03/19 20:57 Urine Color Yellow (YELLOW) 11/03/19 20:57 Urine Appearance Hazy (CLEAR) 11/03/19 20:57 Urine pH 5.0 (5.0 - 8.0) 11/03/19 20:57 Ur Specific [place] 1.020 (1.000-1.030) 11/03/19 20:57 Urine Protein Negative (NEGATIVE) 11/03/19 20: Urine Glucose (UA) Negative (NEGATIVE) 11/03/19 20: Urine Ketones Negative (NEGATIVE) 11/03/19 20: Urine Occult Blood Negative (NEGATIVE) 11/03/19 20:57 Urine Nitrite Positive (NEGATIVE) 11/03/19 20: Urine Bilirubin Negative (NEGATIVE) 11/03/19 20:57 Urine Urobilinogen Normal (NORMAL) 11/03/19 20:57 Ur Leukocyte Esterase 2+ (NEGATIVE) 11/03/19 20:57 Urine RBC None seen /HPF (0-3) 11/03/19 20:57 Urine WBC 10-20 /HPF (0-5) A 11/03/19 20:57 Ur Squamous Epith Cells Rare /HPF (NEGATIVE) 11/03/19 20:57 Urine Bacteria 2+ /HPF (NEGATIVE) 11/03/19 20:57 Ur Culture Indicated? Yes/culture set up 11/03/19 20:57 Stool Description Ifob collection tube 11/03/19 20:32 Stl Occult Blood (IFOB) Positive (NEGATIVE) A 11/03/19 20:32 Blood Type A POSITIVE 11/03/19 19:52 Antibody Screen Negative 11/03/19:52 Crossmatch See Detail 11/03/19 19:52 - Plan (1) UTI (urinary tract infection) Status: Acute Qualifiers: Urinary tract infection type: acute cystitis Plan: levaquin 500mg iv daily, continue to monitor (2) Abdominal pain Status: Acute Qualifiers: Abdominal location: generalized Qualified Code(s): R10.84 - Generalized abdominal pain Plan: obtain abdomen/pelvis ct with contrast, continue to monitor (3) Weakness Status: Acute (4) Anemia Status: Acute Qualifiers: Anemia type: unspecified type Qualified Code(s): D64.9 - Anemia, unspecified Plan: continue to monitor
[2019-11-09] MEDS: CLINIMIX 4.25 %/10 % 1,000 ML with MVI INJ (ADULT) 10 ML, TPN ELECTROLYTES 20 ML IV SCH ×6 (02:00→09:50)
[2019-11-09 06:53] LABS: BASOPHILS % (AUTO) 0.8 % (0.2-1.0); EOSINOPHILS # (AUTO) 0.2 x10^3/uL (0.0-0.2); EOSINOPHILS % (AUTO) 3.9 % (0.9-2.9); HEMATOCRIT 34.3 % (36.0-47.0); HEMOGLOBIN 11.2 g/dL (12.0-16.0); LYMPHOCYTES # (AUTO) 1.3 X10^3/uL (1.3-2.9); LYMPHOCYTES % (AUTO) 26.2 % (21.0-51.0); MEAN CORPUSCULAR HEMOGLOBIN 27.1 pg (27.0-34.0); MEAN CORPUSCULAR HGB CONC 32.8 g/dL (33.0-35.0); MEAN CORPUSCULAR VOLUME 82.8 fL (80.0-100.0); MEAN PLATELET VOLUME 7.6 fL (7.4-11.0); MONOCYTES # (AUTO) 0.4 x10^3/uL (0.3-0.8); MONOCYTES % (AUTO) 7.6 % (0.0-13.0); NEUTROPHILS % (AUTO) 61.5 % (42.0-75.0); PLATELET COUNT 182 X10^3/uL (150.0-450.0); RED BLOOD COUNT 4.14 X10^6/uL (3.5-5.4); RED CELL DISTRIBUTION WIDTH 16.9 % (11.6-16.5); WHITE BLOOD COUNT 4.9 X10^3/uL (3.6-10.0)
[2019-11-09 07:08] LABS: ALANINE AMINOTRANSFERASE 14 Units/L (12-78); ALKALINE PHOSPHATASE 52 Units/L (46-116); ASPARTATE AMINO TRANSFERASE 22 Units/L (15-37); BLOOD UREA NITROGEN 15 mg/dL (7-18); CARBON DIOXIDE 25.5 mmol/L (21-32); CHLORIDE 108 mmol/L (98-107); COR CA(FOR HYPOALB) 8.8 mg/dL (8.5-10.1); COR NA(FOR HYPERGLY) 142 mmol/L (136-145); CREATININE 0.85 mg/dL (0.55-1.02); SODIUM 140 mmol/L (136-145); TOTAL PROTEIN 5.6 g/dL (6.4-8.2); eGFR NON BLACK RACES > 60 (>60)
[2019-11-09] MEDS: ULTRAM PO PRN ×2 (08:17→18:33)
[2019-11-09] MEDS: ALBUMIN HUMAN 25%- 100 ML 100 ML IV SCH (08:18)
[2019-11-09] MEDS: PROTONIX INJ 40 MG VIAL IVP SCH ×2 (08:19→21:39)
[2019-11-09] MEDS: HEMOCYTE-PLUS PO SCH (08:19)
[2019-11-09] MEDS: ZEBETA TAB 5 MG PO SCH (08:19)
[2019-11-09] MEDS: VOLTAREN 1 % GEL MULTI DOSE TUBE TOP SCH ×4 (08:20→21:39)
[2019-11-09] MEDS: NYSTATIN OINT TOP SCH ×2 (08:21→21:38)
[2019-11-09] MEDS: NS 1000 ML 1,000 ML IV SCH (09:50)
[2019-11-09] MEDS: LEVAQUIN PREMIX IV 500 MG 500 MG/100 ML BAG IV SCH (09:50)
--- NOTE | 2019-11-09 10:45 | RAD ---
HISTORYCHF, CAD, SOBSTUDYPortable AP chestCOMPARISONFebruary 2019FINDINGSThere is a large hiatal hernia as before. There is chronic mild interstitial lung disease. The heart size is normal. There is mild dextroscoliosis of the thoracic spine. There is a aortic valve prosthesis.IMPRESSIONUnchanged large hiatal hernia, no acute disease demonstratedElectronically signed by: RANDOLPH KRISHNAMURTHY (Nov 09, 2019 10:43:30)
[2019-11-10] MEDS: HumuLIN R SUBCUT PRN (05:40)
[2019-11-10 06:13] LABS: BASOPHILS % (AUTO) 0.7 % (0.2-1.0); EOSINOPHILS # (AUTO) 0.2 x10^3/uL (0.0-0.2); EOSINOPHILS % (AUTO) 3.6 % (0.9-2.9); HEMATOCRIT 33.3 % (36.0-47.0); HEMOGLOBIN 10.9 g/dL (12.0-16.0); LYMPHOCYTES # (AUTO) 1.2 X10^3/uL (1.3-2.9); LYMPHOCYTES % (AUTO) 25.3 % (21.0-51.0); MEAN CORPUSCULAR HGB CONC 32.7 g/dL (33.0-35.0); MEAN CORPUSCULAR VOLUME 82.8 fL (80.0-100.0); MEAN PLATELET VOLUME 7.3 fL (7.4-11.0); MONOCYTES # (AUTO) 0.3 x10^3/uL (0.3-0.8); MONOCYTES % (AUTO) 6.6 % (0.0-13.0); NEUTROPHILS % (AUTO) 63.8 % (42.0-75.0); PLATELET COUNT 163 X10^3/uL (150.0-450.0); RED BLOOD COUNT 4.02 X10^6/uL (3.5-5.4); WHITE BLOOD COUNT 4.8 X10^3/uL (3.6-10.0)
[2019-11-10 06:40] LABS: ALANINE AMINOTRANSFERASE 14 Units/L (12-78); ALBUMIN 3.1 g/dL (3.4-5.0); ALKALINE PHOSPHATASE 49 Units/L (46-116); ASPARTATE AMINO TRANSFERASE 15 Units/L (15-37); BLOOD UREA NITROGEN 16 mg/dL (7-18); CALCIUM 7.9 mg/dL (8.5-10.1); CARBON DIOXIDE 26.6 mmol/L (21-32); CHLORIDE 106 mmol/L (98-107); COR CA(FOR HYPOALB) 8.6 mg/dL (8.5-10.1); COR NA(FOR HYPERGLY) 142 mmol/L (136-145); CREATININE 0.77 mg/dL (0.55-1.02); SODIUM 140 mmol/L (136-145); TOTAL PROTEIN 5.6 g/dL (6.4-8.2); eGFR NON BLACK RACES > 60 (>60)
[2019-11-10] MEDS: LEVAQUIN PREMIX IV 500 MG 500 MG/100 ML BAG IV SCH (08:35)
[2019-11-10] MEDS: ZEBETA TAB 5 MG PO SCH (08:36)
[2019-11-10] MEDS: HEMOCYTE-PLUS PO SCH (08:36)
[2019-11-10] MEDS: COLACE CAP 100 MG PO PRN (08:36)
[2019-11-10] MEDS: PROTONIX INJ 40 MG VIAL IVP SCH (08:38)
[2019-11-10] MEDS: ULTRAM PO PRN (09:30)
[2019-11-10 09:39] VITALS: BP 186/77
[2019-11-10] MEDS: VOLTAREN 1 % GEL MULTI DOSE TUBE TOP SCH (09:39)
[2019-11-10] MEDS ORDERED: COZAAR PO SCH (10:00)
[2019-11-10] MEDS: CLINIMIX 4.25 %/10 % 1,000 ML with MVI INJ (ADULT) 10 ML, TPN ELECTROLYTES 20 ML IV SCH ×3 (10:08)
[2019-11-10] MEDS: NYSTATIN OINT TOP SCH (10:21)
== END 2019-11-10 10:44 | disposition home or self-care (01) | DRG 812 ==
LOC: MED/SURG 19:26 → ER 19:26 → OBSVTOIN 22:21 → MED/SURG 22:41
PROVIDERS: ADMIT Internal Medicine; ATTEND Internal Medicine
DX: M54.2 Cervicalgia; K21.9 Gastro-esophageal reflux disease without esophagitis; J90 Pleural effusion, not elsewhere classified; I95.89 Other hypotension; B96.29 Other Escherichia coli [E. coli] as the cause of diseases classified elsewhere; M19.90 Unspecified osteoarthritis, unspecified site; D50.8 Other iron deficiency anemias; I25.10 Atherosclerotic heart disease of native coronary artery without angina pectoris; E11.65 Type 2 diabetes mellitus with hyperglycemia; R55 Syncope and collapse; R51 Headache; I50.9 Heart failure, unspecified; D64.89 Other specified anemias; K44.9 Diaphragmatic hernia without obstruction or gangrene; R53.1 Weakness; R94.31 Abnormal electrocardiogram [ECG] [EKG]; R10.84 Generalized abdominal pain; K92.2 Gastrointestinal hemorrhage, unspecified; E78.49 Other hyperlipidemia
CPT/HCPCS: 36415; 36430; 51702; 70450; 71010; 71045; 72125; 74177; 80053; 81001; 82270; 82378; 82550; 82553; 82607; 82728; 82746; 83540; 83735; 84466; 84484; 85025; 85610; 85730; 86850; 86900; 86901; 86922; 87086; 87088; 87186; 93005; 96365; 96367; 97116; 97162; 97166; 99100; 99284; A4222; B4189; C9113; J0131; J0696; J1756; J1815; J1940; J1956; J2405; J2704; J7030; J7050; P9016; P9047

== ENCOUNTER 2019-11-10 10:44 | Inpatient (IN) ==
[2019-11-10] MEDS ORDERED: ZOFRAN INJ 4 MG VIAL IVP PRN (11:25)
[2019-11-10] MEDS ORDERED: HumuLIN R SUBCUT PRN (11:25)
[2019-11-10] MEDS: VOLTAREN 1 % GEL MULTI DOSE TUBE TOP SCH ×3 (13:24→20:32)
--- NOTE | 2019-11-10 14:51 | PT/OTEVAL ---
PT/OT OBJECTIVES - HISTORY Prescription: PT consult Diagnosis: Anemia, UTI Precautions: falls, SOB PMH: Coronary Artery Disease, Hypertension, Dyslipidemia, Diabetes, Anxiety, Arthritis Prior Level of Function: Independent Other, comment: Prior, Pt indep c gross functional mobility uses rollator for ambulaiton - COGNITION Mental Status: Alert, Oriented, Name, Place, Purpose, Decreased Safety Awarenes Communication Status: Verbal, Hard of Hearing Ability to Follow Directions: 2 Step - PAIN Left Knee Comments: no grimacing with Rx Posterior Neck Pain Scale: Mild (3-4) Comments: [employer] nurse aware Lower Back Pain Scale: Mild (3-4) - BED MOBILITY Rolling: Supervision Scooting: Supervision Bridging: Supervision - TRANSFERS Supine to Sit: Supervision Sit to Stand: Supervision Sit or Stand Pivot: Supervision - BALANCE Static Sitting: Good Standing: Fair Dynamic Sitting: Good Standing: Fair Balance Comment: Fair- dynamic standing - NEUROMOTOR/SENSATION Left Lower Ext Sensation: WFL Coordination: WFL Greg. Upper Ext Sensation: WFL Coordination: WFL Proprioception: WFL Greg. Lower Ext Sensation: WFL Coordination: WFL - ROM Bilateral LE ROM: WFL Muscle Tone: WFL - STRENGTH Bilateral LE Strength Number: 3 Other comment: 3-/5 grossly graded Left LE Strength Number: 3 Other comment: grossly 3-/5 quad & hamstring Right LE Strength Number: 3 Bilateral UE Strength Number: 3 Other comment: BUE grossly graded 3/5 - GAIT Pt. ambulates how many feet?: 50 Amount of assistance required: Minimal Type of Assistive Device: Rolling Walker PT/OT ASSESSMENT - PT Problem List: Decreased Bed Mobility, Decreased Transfers, Decreased Gait, Decreased Balance, Decreased Safety, Decreased LE Strength - PT GOALS Clinical Faculty Goals Days: 20 Gait: Pt to ambulate 450 ft @ supervision to increase tolerance Balance: Pt to improve standing balance to G+ to reduce risk from falls. ROM/Strength: Pt to improve B LE mm strength 1-2 mm increments for stability Short Term Goals Days: 10 Mobility: Pt to be indep c bed mobility to allow return to PLOF Transfers: Pt to be indep c transfers to allow return to PLOF Gait: Pt to ambulate 250 ft @ supervision to increase tolerance ROM/Strength: Pt to be able to perform STS x 8 times in 30 secs. - PATIENT GOALS Goals Discussed with Patient/Family: Yes Rehabilitation Potential: good - PLAN Suggested Treatment Plan: Bed Mobility Training, Therapeutic Activity, Gait Training, Neuro Re-education, Therapeutic Ex with HEP, Home Management, Patient Education, Family Education - FREQUENCY AND DURATION PT: 6x/week Expected Continuation of Care at Discharge: Determined on Progress Anticipated Equipment Needs: FWRW
[2019-11-10 14:55] VITALS: BMI 19.0
[2019-11-10] MEDS: ULTRAM PO PRN (16:11)
--- NOTE | 2019-11-10 16:48 | PT/OTEVAL ---
PT/OT OBJECTIVES - HISTORY Prescription: OT Consult Diagnosis: Orthostatic hypotension, UTI, asymptomatic anemia Precautions: Falls PMH: Coronary Artery Disease, Hypertension, Dyslipidemia, Diabetes, Anxiety, Arthritis Prior Level of Function: Independent Other, comment: On prior level, patient used cane and rollator only as needed Other: Pt has a ramp built at home. - COGNITION Mental Status: Alert, Name, Date, Place, Purpose, Decreased Safety Awarenes Communication Status: Verbal Ability to Follow Directions: 3 Step - PAIN Left Knee Pain Scale: No Pain Comments: no grimacing with Rx Posterior Neck Pain Scale: Mild (3-4) Comments: [employer] nurse aware Lower Back Pain Scale: Mild (3-4) - TRANSFERS Supine to Sit: Minimal Sit to Stand: Supervision - ADL'S Feeding: Independent Grooming: Supervision Upper Body ADL: Supervision Lower Body ADL: Minimum Toileting: Minimum - BALANCE Static Sitting: Good Standing: Fair Dynamic Sitting: Good Standing: Fair Balance Comment: Fair- dynamic standing - NEUROMOTOR/SENSATION Left Lower Ext Sensation: WFL Coordination: WFL Greg. Upper Ext Sensation: WFL Coordination: WFL Proprioception: WFL Greg. Lower Ext Sensation: WFL Coordination: WFL - HAND DOMINANCE Extremity Function: Hand Dominance: Right - ROM Bilateral UE Muscle Tone: WFL - STRENGTH Left LE Strength Number: 3 Other comment: grossly 3-/5 quad & hamstring Right LE Strength Number: 3 Bilateral LE Strength Number: 3 Other comment: 3-/5 grossly graded Bilateral UE Strength Number: 3 Other comment: BUE grossly graded 3/5 PT/OT ASSESSMENT - OT Problem List: Decreased Mobility ADL's, Decreased Safety Aware, Decreased Dressing, Decreased Bathing, Decreased UE Strength - PT GOALS Inspector Screen Printing Goals Days: 20 Mobility: Pt to be indep c bed mobility to allow retunr to PLOF Transfers: Pt to be indep c transfers to allow return to PLOF Gait: Pt to ambulate 450 ft @ supervision to increase tolerance Balance: Pt to improve standing balance to G+ to reduce risk from falls. ROM/Strength: Pt to improve B LE mm strength 1-2 mm increments for stability Short Term Goals Days: 10 Mobility: Pt to be indep c bed mobility to allow return to PLOF Transfers: Pt to be indep c transfers to allow return to PLOF Gait: Pt to ambulate 250 ft @ supervision to increase tolerance Balance: Pt to improve standing balance to G+ to reduce risk from falls. ROM/Strength: Pt to be able to perform STS x 8 times in 30 secs. - OT GOALS Retirement Goals Days: 20 Mobility for ADL's: Pt will perform functional and toilet transfers to independent. Safety Awareness: Pt to demonstrate good safety awareness during self-cares. Dressing: Pt to complete total body dressing independently. Bathing: Pt will complete bathing tasks with set-up. Other: Pt will improve on functional activity tolerance to good (15mins) Short Term Goals Days: 10 Mobility for ADL's: Pt will perform functional and toilet transfers to set-up. Safety Awareness: Pt to demonstrate good safety awareness during self-cares Dressing: Pt to complete total body dressing with set-up. Bathing: Pt will complete bathing tasks with supervision/touch A. Upper Ext. Strength/Use: Pt to improve on BUE strength to 4+/5 for increasing participation on ADLs. Other: Pt will improve on functional activity tolerance to fair+ (10mins) - PATIENT GOALS Patient/Family Goals: To improve on my strength and go home. Goals Discussed with Patient/Family: Yes Rehabilitation Potential: good Weakness and Barriers: Pain - PLAN Suggested Treatment Plan: Therapeutic Activity, Self Care Training, Neuro Re- education, Therapeutic Ex with HEP - FREQUENCY AND DURATION OT: 5x/wk x hospital stay Expected Continuation of Care at Discharge: Home
--- NOTE | 2019-11-10 17:41 | DR.UPDATE ---
H&P Update History and Physical Update: History and Physical reviewed and patient examined. H&P ON 11/03/2019. MRS. SANTIAGO EXAMINED AND NO CHANGES NOTED. Prescription drug monitoring program results: PDMP reviewed and no concerns identified H&P Reviewed: Yes Patient was examined?: Yes
[2019-11-10] MEDS: NYSTATIN OINT TOP SCH (20:32)
[2019-11-10] MEDS: SNACK - Diabetic Appropriate PO SCH (20:32)
[2019-11-10] MEDS: PROTONIX TAB 40 MG PO SCH (20:32)
[2019-11-10] MEDS ORDERED: PROTONIX INJ 40 MG VIAL IVP SCH (21:00)
[2019-11-11] MEDS: ULTRAM PO PRN ×3 (04:49→17:32)
[2019-11-11 05:55] LABS: BASOPHILS % (AUTO) 0.8 % (0.2-1.0); EOSINOPHILS # (AUTO) 0.2 x10^3/uL (0.0-0.2); EOSINOPHILS % (AUTO) 4.4 % (0.9-2.9); HEMATOCRIT 35.7 % (36.0-47.0); HEMOGLOBIN 11.7 g/dL (12.0-16.0); LYMPHOCYTES # (AUTO) 1.2 X10^3/uL (1.3-2.9); LYMPHOCYTES % (AUTO) 25.1 % (21.0-51.0); MEAN CORPUSCULAR HEMOGLOBIN 27.3 pg (27.0-34.0); MEAN CORPUSCULAR HGB CONC 32.9 g/dL (33.0-35.0); MEAN CORPUSCULAR VOLUME 82.9 fL (80.0-100.0); MEAN PLATELET VOLUME 7.7 fL (7.4-11.0); MONOCYTES # (AUTO) 0.3 x10^3/uL (0.3-0.8); MONOCYTES % (AUTO) 7.3 % (0.0-13.0); NEUTROPHILS % (AUTO) 62.4 % (42.0-75.0); PLATELET COUNT 160 X10^3/uL (150.0-450.0); RED CELL DISTRIBUTION WIDTH 17.4 % (11.6-16.5); WHITE BLOOD COUNT 4.8 X10^3/uL (3.6-10.0)
[2019-11-11 06:22] LABS: ALANINE AMINOTRANSFERASE 15 Units/L (12-78); ALBUMIN 3.2 g/dL (3.4-5.0); ALKALINE PHOSPHATASE 55 Units/L (46-116); ASPARTATE AMINO TRANSFERASE 15 Units/L (15-37); BLOOD UREA NITROGEN 17 mg/dL (7-18); CALCIUM 8.5 mg/dL (8.5-10.1); CARBON DIOXIDE 28.8 mmol/L (21-32); CHLORIDE 105 mmol/L (98-107); COR CA(FOR HYPOALB) 9.1 mg/dL (8.5-10.1); COR NA(FOR HYPERGLY) 141 mmol/L (136-145); CREATININE 0.91 mg/dL (0.55-1.02); SODIUM 140 mmol/L (136-145); TOTAL PROTEIN 5.8 g/dL (6.4-8.2); eGFR NON BLACK RACES > 60 (>60)
[2019-11-11] MEDS: PROTONIX TAB 40 MG PO SCH ×2 (08:31→20:33)
[2019-11-11] MEDS: LEVAQUIN TAB 500 MG PO SCH (08:31)
[2019-11-11] MEDS: ZEBETA TAB 5 MG PO SCH (08:31)
[2019-11-11] MEDS: VOLTAREN 1 % GEL MULTI DOSE TUBE TOP SCH ×4 (08:32→20:33)
[2019-11-11] MEDS ORDERED: COZAAR PO SCH (09:00)
[2019-11-11] MEDS ORDERED: LEVAQUIN PREMIX IV 500 MG 500 MG/100 ML BAG IV SCH (09:00)
[2019-11-11] MEDS: NYSTATIN OINT TOP SCH ×2 (13:03→20:32)
[2019-11-11] MEDS: TYLENOL 325 MG TAB PO PRN (13:30)
[2019-11-11] MEDS ORDERED: COZAAR PO ONE (13:36)
[2019-11-11] MEDS: SNACK - Diabetic Appropriate PO SCH (20:32)
[2019-11-11] MEDS: XANAX PO PRN (20:33)
[2019-11-12] MEDS: ULTRAM PO PRN ×3 (01:38→21:25)
[2019-11-12] MEDS: TYLENOL 325 MG TAB PO PRN ×2 (02:40→08:05)
[2019-11-12 06:36] LABS: BASOPHILS % (AUTO) 0.7 % (0.2-1.0); EOSINOPHILS # (AUTO) 0.2 x10^3/uL (0.0-0.2); EOSINOPHILS % (AUTO) 3.3 % (0.9-2.9); HEMATOCRIT 37.3 % (36.0-47.0); HEMOGLOBIN 12.3 g/dL (12.0-16.0); LYMPHOCYTES # (AUTO) 1.3 X10^3/uL (1.3-2.9); LYMPHOCYTES % (AUTO) 24.9 % (21.0-51.0); MEAN CORPUSCULAR HEMOGLOBIN 27.1 pg (27.0-34.0); MEAN CORPUSCULAR HGB CONC 32.9 g/dL (33.0-35.0); MEAN CORPUSCULAR VOLUME 82.3 fL (80.0-100.0); MEAN PLATELET VOLUME 7.5 fL (7.4-11.0); MONOCYTES # (AUTO) 0.4 x10^3/uL (0.3-0.8); MONOCYTES % (AUTO) 7.2 % (0.0-13.0); NEUTROPHILS # (AUTO) 3.5 x10^3/uL (2.2-4.8); NEUTROPHILS % (AUTO) 63.9 % (42.0-75.0); PLATELET COUNT 141 X10^3/uL (150.0-450.0); RED BLOOD COUNT 4.53 X10^6/uL (3.5-5.4); RED CELL DISTRIBUTION WIDTH 17.7 % (11.6-16.5); WHITE BLOOD COUNT 5.4 X10^3/uL (3.6-10.0)
[2019-11-12] MEDS: PROTONIX TAB 40 MG PO SCH ×2 (09:06→21:24)
[2019-11-12] MEDS: COZAAR PO SCH (09:07)
[2019-11-12] MEDS: NYSTATIN OINT TOP SCH ×2 (09:07→21:25)
[2019-11-12] MEDS: ZEBETA TAB 5 MG PO SCH (09:07)
[2019-11-12] MEDS: VOLTAREN 1 % GEL MULTI DOSE TUBE TOP SCH ×4 (09:07→21:25)
[2019-11-12] MEDS: LEVAQUIN TAB 500 MG PO SCH (09:07)
[2019-11-12] MEDS ORDERED: FIORICET TAB PO ONE (14:25)
[2019-11-12] MEDS: SNACK - Diabetic Appropriate PO SCH (21:23)
[2019-11-12] MEDS: XANAX PO PRN (21:25)
[2019-11-13] MEDS: PROTONIX TAB 40 MG PO SCH ×2 (09:47→22:03)
[2019-11-13] MEDS: ASPIRIN EC 81 MG PO SCH (09:47)
[2019-11-13] MEDS: ZEBETA TAB 5 MG PO SCH (09:47)
[2019-11-13] MEDS: COZAAR PO SCH (09:47)
[2019-11-13] MEDS: LEVAQUIN TAB 500 MG PO SCH (09:47)
[2019-11-13] MEDS: ULTRAM PO PRN ×2 (09:47→16:59)
[2019-11-13] MEDS: NYSTATIN OINT TOP SCH ×2 (09:51→22:01)
[2019-11-13] MEDS: VOLTAREN 1 % GEL MULTI DOSE TUBE TOP SCH ×4 (09:59→22:03)
--- NOTE | 2019-11-13 15:09 | CT ---
HISTORYamsSTUDYCT OF THE BRAIN WITHOUT CONTRASTCOMPARISONFebruary 2019TECHNIRochester Regional Healthcontra CT of the head is performed with multiplanar reconstruction. Dose reduction techniques including Automated Exposure Control (AEC) and adjustment of mA and kV were utilized.FINDINGSThere is moderate generalized cortical volume loss of the supratentorial brain with prominence of the subarachnoid space along the frontal skull convexity, also contributing to generalized sulcal widening. Patchy periventricular and subcortical white matter hypoattenuation is observed, most consistent with chronic microangiopathic ischemic changes. Ventricular size is normal. There is no evidence of an acute stage large artery territorial infarction. Atherosclerotic calcifications are associated with the cavernous ICA segments and vertebral arteries. The paranasal sinuses and the mastoid air cells are predominantly clear. The calvarium is intact.IMPRESSIONNo acute intracranial abnormalitiesModerate, age related cortical atrophyModerate, chronic microangiopathic ischemic changes associated with the deep white matter tracts of the supratentorial brain.Electronically signed by: FITO DIETZ (Nov 13, 2019 15:08:12)
[2019-11-13 15:30] LABS: BASOPHILS % (AUTO) 0.9 % (0.2-1.0); EOSINOPHILS # (AUTO) 0.1 x10^3/uL (0.0-0.2); EOSINOPHILS % (AUTO) 3.1 % (0.9-2.9); HEMATOCRIT 39.2 % (36.0-47.0); HEMOGLOBIN 12.7 g/dL (12.0-16.0); LYMPHOCYTES % (AUTO) 21.1 % (21.0-51.0); MEAN CORPUSCULAR HEMOGLOBIN 27.2 pg (27.0-34.0); MEAN CORPUSCULAR HGB CONC 32.4 g/dL (33.0-35.0); MEAN CORPUSCULAR VOLUME 83.9 fL (80.0-100.0); MEAN PLATELET VOLUME 7.6 fL (7.4-11.0); MONOCYTES # (AUTO) 0.3 x10^3/uL (0.3-0.8); MONOCYTES % (AUTO) 6.9 % (0.0-13.0); NEUTROPHILS # (AUTO) 3.2 x10^3/uL (2.2-4.8); PLATELET COUNT 138 X10^3/uL (150.0-450.0); RED BLOOD COUNT 4.68 X10^6/uL (3.5-5.4); RED CELL DISTRIBUTION WIDTH 17.6 % (11.6-16.5); WHITE BLOOD COUNT 4.7 X10^3/uL (3.6-10.0)
[2019-11-13 15:44] LABS: ALANINE AMINOTRANSFERASE 16 Units/L (12-78); ALBUMIN 3.6 g/dL (3.4-5.0); ALKALINE PHOSPHATASE 66 Units/L (46-116); ASPARTATE AMINO TRANSFERASE 14 Units/L (15-37); BLOOD UREA NITROGEN 12 mg/dL (7-18); CALCIUM 8.6 mg/dL (8.5-10.1); CARBON DIOXIDE 30.8 mmol/L (21-32); CHLORIDE 103 mmol/L (98-107); COR NA(FOR HYPERGLY) 139 mmol/L (136-145); CREATININE 1.08 mg/dL (0.55-1.02); SODIUM 138 mmol/L (136-145); TOTAL PROTEIN 6.7 g/dL (6.4-8.2); eGFR NON BLACK RACES 51 (>60)
[2019-11-13] MEDS: SNACK - Diabetic Appropriate PO SCH (22:03)
[2019-11-13] MEDS: TYLENOL 325 MG TAB PO PRN (22:04)
[2019-11-14 03:55] LABS: BILIRUBIN,URINE NEGATIVE (NEGATIVE); BLOOD/HEMOGLOBIN,URINE 1+ (NEGATIVE); GLUCOSE, URINE NEGATIVE (NEGATIVE); KETONES,URINE NEGATIVE (NEGATIVE); LEUKOCYTE ESTERASE ,URINE NEGATIVE (NEGATIVE); NITRITES,URINE NEGATIVE (NEGATIVE); PH,URINE 6.5 (5.0 - 8.0); PROTEIN,URINE NEGATIVE (NEGATIVE); UROBILINOGEN,URINE NORMAL (NORMAL)
[2019-11-14 04:00] LABS: APPEARANCE,URINE CLEAR (CLEAR); BACTERIA,URINE NEGATIVE /HPF (NEGATIVE); COLOR,URINE YELLOW (YELLOW); RBC,URINE 0-2 /HPF (0-3); SQUAMOUS EPITHELIAL CELL,UR RARE /HPF (NEGATIVE)
[2019-11-14 06:12] LABS: BASOPHILS # (AUTO) 0.1 X10^3/uL (0.0-0.1); BASOPHILS % (AUTO) 0.7 % (0.2-1.0); EOSINOPHILS # (AUTO) 0.1 x10^3/uL (0.0-0.2); EOSINOPHILS % (AUTO) 1.7 % (0.9-2.9); HEMATOCRIT 42.6 % (36.0-47.0); HEMOGLOBIN 13.7 g/dL (12.0-16.0); LYMPHOCYTES # (AUTO) 1.7 X10^3/uL (1.3-2.9); LYMPHOCYTES % (AUTO) 23.4 % (21.0-51.0); MEAN CORPUSCULAR HEMOGLOBIN 26.8 pg (27.0-34.0); MEAN CORPUSCULAR HGB CONC 32.2 g/dL (33.0-35.0); MEAN CORPUSCULAR VOLUME 83.1 fL (80.0-100.0); MEAN PLATELET VOLUME 7.6 fL (7.4-11.0); MONOCYTES # (AUTO) 0.6 x10^3/uL (0.3-0.8); NEUTROPHILS # (AUTO) 4.8 x10^3/uL (2.2-4.8); NEUTROPHILS % (AUTO) 66.2 % (42.0-75.0); PLATELET COUNT 160 X10^3/uL (150.0-450.0); RED BLOOD COUNT 5.13 X10^6/uL (3.5-5.4); RED CELL DISTRIBUTION WIDTH 17.9 % (11.6-16.5); WHITE BLOOD COUNT 7.3 X10^3/uL (3.6-10.0)
[2019-11-14 06:40] LABS: ALANINE AMINOTRANSFERASE 14 Units/L (12-78); ALBUMIN 3.9 g/dL (3.4-5.0); ALKALINE PHOSPHATASE 73 Units/L (46-116); ASPARTATE AMINO TRANSFERASE 19 Units/L (15-37); BLOOD UREA NITROGEN 12 mg/dL (7-18); CALCIUM 9.3 mg/dL (8.5-10.1); CARBON DIOXIDE 23.7 mmol/L (21-32); CHLORIDE 104 mmol/L (98-107); COR NA(FOR HYPERGLY) 142 mmol/L (136-145); CREATININE 1.08 mg/dL (0.55-1.02); SODIUM 140 mmol/L (136-145); TOTAL PROTEIN 7.1 g/dL (6.4-8.2); eGFR NON BLACK RACES 51 (>60)
[2019-11-14] MEDS: LEVAQUIN TAB 500 MG PO SCH (09:45)
[2019-11-14] MEDS: VOLTAREN 1 % GEL MULTI DOSE TUBE TOP SCH ×5 (09:45→21:00)
[2019-11-14] MEDS: NYSTATIN OINT TOP SCH ×2 (09:45→20:52)
[2019-11-14] MEDS: ZEBETA TAB 5 MG PO SCH (09:45)
[2019-11-14] MEDS: ASPIRIN EC 81 MG PO SCH (09:45)
[2019-11-14] MEDS: COZAAR PO SCH (09:45)
[2019-11-14] MEDS: PROTONIX TAB 40 MG PO SCH ×2 (12:50→20:53)
[2019-11-14] MEDS: PLAVIX PO SCH (15:08)
[2019-11-14] MEDS: ULTRAM PO SCH ×2 (15:09→21:01)
[2019-11-14] MEDS: LOPRESSOR TAB 25 MG PO SCH (20:51)
[2019-11-14] MEDS: SNACK - Diabetic Appropriate PO SCH (20:53)
[2019-11-14] MEDS ORDERED: RESTORIL CAP 15 MG PO PRN (21:15)
[2019-11-15] MEDS: ULTRAM PO SCH ×4 (05:45→21:07)
[2019-11-15] MEDS: LEVAQUIN TAB 500 MG PO SCH (09:03)
[2019-11-15] MEDS: PROTONIX TAB 40 MG PO SCH ×2 (09:03→21:07)
[2019-11-15] MEDS: NYSTATIN OINT TOP SCH ×2 (09:04→22:18)
[2019-11-15] MEDS: PLAVIX PO SCH (09:04)
[2019-11-15] MEDS: COZAAR PO SCH (09:04)
[2019-11-15] MEDS: LOPRESSOR TAB 25 MG PO SCH ×2 (09:04→21:08)
[2019-11-15] MEDS: ASPIRIN EC 81 MG PO SCH (09:04)
[2019-11-15] MEDS: VOLTAREN 1 % GEL MULTI DOSE TUBE TOP SCH ×3 (09:05→17:14)
[2019-11-15] MEDS: TYLENOL 325 MG TAB PO PRN (09:08)
[2019-11-15] MEDS: SNACK - Diabetic Appropriate PO SCH (20:00)
[2019-11-16] MEDS: ULTRAM PO SCH ×2 (06:13→14:28)
[2019-11-16 06:37] LABS: EOSINOPHILS # (AUTO) 0.2 x10^3/uL (0.0-0.2); EOSINOPHILS % (AUTO) 3.4 % (0.9-2.9); HEMATOCRIT 36.4 % (36.0-47.0); LYMPHOCYTES # (AUTO) 1.4 X10^3/uL (1.3-2.9); MEAN CORPUSCULAR HEMOGLOBIN 27.1 pg (27.0-34.0); MEAN PLATELET VOLUME 7.6 fL (7.4-11.0); MONOCYTES # (AUTO) 0.4 x10^3/uL (0.3-0.8); MONOCYTES % (AUTO) 7.6 % (0.0-13.0); NEUTROPHILS # (AUTO) 2.7 x10^3/uL (2.2-4.8); PLATELET COUNT 121 X10^3/uL (150.0-450.0); RED BLOOD COUNT 4.44 X10^6/uL (3.5-5.4); RED CELL DISTRIBUTION WIDTH 18.3 % (11.6-16.5); WHITE BLOOD COUNT 4.7 X10^3/uL (3.6-10.0)
[2019-11-16 06:46] LABS: ALANINE AMINOTRANSFERASE 13 Units/L (12-78); ALKALINE PHOSPHATASE 46 Units/L (46-116); ASPARTATE AMINO TRANSFERASE 13 Units/L (15-37); BLOOD UREA NITROGEN 15 mg/dL (7-18); CALCIUM 8.7 mg/dL (8.5-10.1); CARBON DIOXIDE 27.7 mmol/L (21-32); CHLORIDE 105 mmol/L (98-107); COR CA(FOR HYPOALB) 9.5 mg/dL (8.5-10.1); COR NA(FOR HYPERGLY) 141 mmol/L (136-145); CREATININE 0.92 mg/dL (0.55-1.02); SODIUM 140 mmol/L (136-145); TOTAL PROTEIN 5.8 g/dL (6.4-8.2); eGFR NON BLACK RACES > 60 (>60)
[2019-11-16] MEDS: ASPIRIN EC 81 MG PO SCH (09:04)
[2019-11-16] MEDS: NYSTATIN OINT TOP SCH (09:05)
[2019-11-16] MEDS: COZAAR PO SCH (09:05)
[2019-11-16] MEDS: LEVAQUIN TAB 500 MG PO SCH (09:05)
[2019-11-16] MEDS: LOPRESSOR TAB 25 MG PO SCH (09:05)
[2019-11-16] MEDS: PROTONIX TAB 40 MG PO SCH (09:05)
[2019-11-16] MEDS: VOLTAREN 1 % GEL MULTI DOSE TUBE TOP SCH ×2 (09:05→13:31)
[2019-11-16] MEDS: PLAVIX PO SCH (09:05)
[2019-11-16 09:57] VITALS: BP 181/72
== END 2019-11-16 16:15 | disposition home or self-care (01) | DRG 812 ==
LOC: MED/SURG 10:44
PROVIDERS: ADMIT Internal Medicine; ATTEND Internal Medicine
DX: I25.10 Atherosclerotic heart disease of native coronary artery without angina pectoris; F01.50 Vascular dementia, unspecified severity, without behavioral disturbance, psychotic disturbance, mood disturbance, and anxiety; R26.89 Other abnormalities of gait and mobility; R29.6 Repeated falls; I95.1 Orthostatic hypotension; R62.7 Adult failure to thrive; Z51.89 Encounter for other specified aftercare; M19.90 Unspecified osteoarthritis, unspecified site; N39.0 Urinary tract infection, site not specified; D64.89 Other specified anemias
CPT/HCPCS: 36415; 70450; 80053; 81001; 82270; 85025; 97110; 97116; 97162; 97166; 97530; 97535; J1815; J3490

== ENCOUNTER 2023-01-07 22:17 | Observation (INO) ==
--- NOTE | 2023-01-07 22:25 | DR.EXTPAIN ---
HPI Time seen Time Seen by Provider: 01/07/23 22:25 HPI Comment HPI Comment: PATIENT IS 87YR OLD FEMALE IN ER VIA EMS AFTER FALLING DOWN AT HOME TONIGHT AND SUSTAINING HEMATOMA AT BACK OF HEAD. DAUGHTER SAID SHE WAS CONFUSED AFTER THE FALL. HISTORY HYPERTENSION, DM AND CAD. COMPLAING OF HEADACHE. HAVING 8/10 PAIN. Complaint/Symptoms Chief Complaint Doctor Comments: FELL, SCALP HEMATOMA AND CONFUSED. COVID-19 Coronavirus risk:travel/contact w/high risk person: No Has patient experienced Coronavirus symptoms: No Nurses notes reviewed Nurses Notes Review: Yes PMH PMH Past Medical History: Anxiety, Arthritis, Coronary Artery Disease, Diabetes, Dyslipidemia and Hypertension Past Surgical History: Yes Surgical History: Angioplasty/Stents, Cholecystectomy, Hysterectomy, Joint Replacement and Tonsillectomy Family History Family Medical History: Cancer and Heart Failure Social History Do you use any recreational Drugs:: No ROS Review of Systems Constitutional: Weakness and Fatigue; negative Fever Eyes: No Symptoms Reported; negative Eye Pain ENTM: No Symptoms Reported Respiratoy: No Symptoms Reported and Short of Breath (ON EXERT[ON.) Cardiovascular: No Symptoms Reported; negative Chest Pain Gastrointestinal/Abdominal: No Symptoms Reported; negative Abdominal Pain, Diarrhea or Vomiting Genitourinary: No Symptoms Reported; negative Dysuria Neurological: Headache and Weakness; negative Dizziness Musculoskeletal: No Symptoms Reported and Other (SCALP PAIN.) Integumentary: No Symptoms Reported Hematologic/Lymphatic: No Symptoms Reported Endocrine: No Symptoms Reported Psychiatric: No Symptoms Reported All Other Systems: Reviewed and Negative PE Vital Signs Vitals: Temperature 98.2 F Pulse Rate 83 Respiratory Rate 20 Blood Pressure [Left Arm] 181/72 Blood Pressure 106/52 O2 Sat by Pulse Oximetry 96 General Limitations: No Limitations General Appearance: Alert and In No Apparent Distress Head Head Exam: Other (SCALP HEMATOMA.) Eyes Eye exam: Normal Appearance ENT ENT Exam: Normal Exam, Normal Oropharynx, Normal External Ear Exam and TM's Normal Bilaterally Neck Neck Exam: Normal Inspection and Trachea Midline; negative Tenderness Chest Chest Inspection: Normal Inspection and Symmetric Chest Wall Rise; negative Tenderness Respiratory Respiratory Exam: Normal Lung Sounds Bilat; negative Accessory Muscle Use, Chest Wall Tenderness or Respiratory Distress Respiratory Exam: Bilateral: Rhonchi Cardiovascular Cardiovascular Exam: Regular Rate, Normal Rhythm and Normal Heart Sounds; negative Systolic Murmur or Diastolic Murmur Abdominal Exam Abdominal Exam: Normal Inspection, Normal Bowel Sounds and Soft; negative Tenderness Extremities Extremities Exam: Normal Inspection and Normal Capillary Refill Back Back Exam: Normal Inspection Neurological Neurological Exam: Alert; negative Oriented X3 or Motor Sensory Deficit Psychiatric Psychiatric Exam: Normal Affect and Normal Mood Skin Skin Exam: Intact COURSE Treatment Treatment: SEE ORDERS DONE WHILE PATIENT WAS IN ER. LABDS AND XRAY REPORT DISCUSSED WITH PATIENT AND FAMILY. SHE WILL BE ADMITTED TO HOSPITAL FOR FURTHER MANAGEMENT. Consultation Consultation Comments: DISCUSSED PATIENT WITH DR. GUERRA. HE WILL ADMIT PATIENT. ROR Labs Reviewed Laboratory Results Reviewed?: Yes Result Diagrams: 01/11/23 04:45 01/11/23 04:45 Laboratory: 01/08/23 00:15 Urine,Clean Catch Urine Culture - Final Klebsiella Pneumoniae WBC 9.0 X10^3/uL (3.6-10.0) 01/07/23 23:10 RBC 4.47 X10^6/uL (3.5-5.4) 01/07/23 23:10 Hgb 12.9 g/dL (12.0-16.0) 01/07/23 23:10 Hct 38.2 % (36.0-47.0) 01/07/23 23:10 MCV 85.5 fL (80.0-100.0) 01/07/23 23:10 MCH 28.9 pg (27.0-34.0) 01/07/23 23:10 MCHC 33.9 g/dL (33.0-35.0) 01/07/23 23:10 RDW 14.6 % (11.6-16.5) 01/07/23 23:10 Plt Count 171 X10^3/uL (150.0-450.0) 01/07/23 23:10 MPV 8.0 fL (7.4-11.0) 01/07/23 23:10 Neut % (Auto) 79.2 % (42.0-75.0) H 01/07/23 23:10 Lymph % (Auto) 13.7 % (21.0-51.0) L 01/07/23 23:10 [place] % (Auto) 4.4 % (0.0-13.0) 01/07/23 23:10 Eos % (Auto) 2.1 % (0.9-2.9) 01/07/23 23:10 Baso % (Auto) 0.6 % (0.2-1.0) 01/07/23 23:10 Neut # (Auto) 7.1 x10^3/uL (2.2-4.8) H 01/07/23 23:10 Lymph # (Auto) 1.2 X10^3/uL (1.3-2.9) L 01/07/23 23:10 [place] # (Auto) 0.4 x10^3/uL (0.3-0.8) 01/07/23 23:10 Eos # (Auto) 0.2 x10^3/uL (0.0-0.2) 01/07/23 23:10 Baso # (Auto) 0.1 X10^3/uL (0.0-0.1) 01/07/23 23:10 Absolute Nucleated RBC 0.1 /100WBC 01/07/23 23:10 Sodium 135 mmol/L (136-145) L 01/07/23 23:10 Corrected Sodium 137 mmol/L (136-145) 01/07/23 23:10 Potassium 5.2 mmol/L (3.5-5.1) H 01/07/23 23:10 Chloride 102 mmol/L (98-107) 01/07/23 23:10 Carbon Dioxide 26.9 mmol/L (21-32) 01/07/23 23:10 BUN 26 mg/dL (7-18) H 01/07/23 23:10 Creatinine 1.08 mg/dL (0.55-1.02) H 01/07/23 23:10 Est GFR (MDRD) Af Amer > 60 (>60) 01/07/23 23:10 Est GFR (MDRD) Non-Af 51 (>60) L 01/07/23 23:10 Glucose 169 mg/dL (65-99) H 01/07/23 23:10 Calcium 8.6 mg/dL (8.5-10.1) 01/07/23 23:10 Corrected Calcium 9.2 mg/dL (8.5-10.1) 01/07/23 23:10 Total Bilirubin 0.20 mg/dL (0.2-1.0) 01/07/23 23:10 AST 21 Units/L (15-37) 01/07/23 23:10 ALT 18 Units/L (12-78) 01/07/23 23:10 Alkaline Phosphatase 74 Units/L (46-116) 01/07/23 23:10 Creatine Kinase 78 Units/L (26-192) 01/07/23 23:10 Troponin I High Sens 53.0 ng/L (4.0-60.0) 01/07/23 23:10 Total Protein 6.7 g/dL (6.4-8.2) 01/07/23 23:10 Albumin 3.3 g/dL (3.4-5.0) L 01/07/23 23:10 Globulin 3.4 g/dL (2.5-4.5) 01/07/23 23:10 Albumin/Globulin Ratio 1.0 Ratio (1.1-2.1) L 01/07/23 23:10 Specimen Type Clean catch urine 01/08/23 00:15 Urine Color Pale yellow (YELLOW) 01/08/23 00:15 Urine Appearance Slightly hazy (CLEAR) 01/08/23 00:15 Urine pH 6.5 (5.0 - 8.0) 01/08/23 00:15 Ur Specific [place] 1.015 (1.000-1.030) 01/08/23 00:15 Urine Protein Negative (NEGATIVE) 01/08/23 00:15 Urine Glucose (UA) Negative (NEGATIVE) 01/08/23 00:15 Urine Ketones Negative (NEGATIVE) 01/08/23 00:15 Urine Blood 1+ (NEGATIVE) 01/08/23 00:15 Urine Nitrite Positive (NEGATIVE) 01/08/23 00:15 Urine Bilirubin Negative (NEGATIVE) 01/08/23 00:15 Urine Urobilinogen Normal (NORMAL) 01/08/23 00:15 Ur Leukocyte Esterase 2+ (NEGATIVE) 01/08/23 00:15 Urine RBC 3-5 /HPF (0-3) A 01/08/23 00:15 Urine WBC 3-5 /HPF (0-5) 01/08/23 00:15 Ur Squamous Epith Cells Few /HPF (NEGATIVE) 01/08/23 00:15 Urine Bacteria 3+ /HPF (NEGATIVE) 01/08/23 00:15 Ur Culture Indicated? Yes/culture set up 01/08/23 00:15 XRAY XRAY Interpreted by: Radiologist (REPORTS NOTED.) and Self (REPORTS NOTED.) EKG Rate: 83 [place]: LAD Rhythm: NSR and PVCs Block: RBBB Hypertrophy: None ST: Inf and Infarct (AGE UNDERTERMINED.) Opioid Opioid Risk Tool Age (Daryn box if 16-45): No History of Preadolescent Sexual Abuse: No Total: 0 Total Score Risk Category: Low Risk Copyright: Carlos CHRISTY predicting aberrant behaviors Discharge Plan Diagnosis Discharge Problem: Essential hypertension, Urinary tract infection Discharge Plan Patient Disposition: 09 ADMITTED INPATIENT Condition: Stable
--- NOTE | 2023-01-07 22:55 | CT ---
HISTORYFALL, HEMATOMA TO LEFT OCCIPITAL HEAD.STUDYHEAD (TRAUMA)COMPARISONNoneTECHNIQUE Dose reduction techniques were utilized.Contrast: NoneFINDINGSThere is a prominent left posterior parietal large subgaleal hematoma and scalp hemorrhagic contusion. There is diffuse cerebral and cerebellar volume loss. There is mild to moderate hypodensity in the hemispheric white matter. While these are nonspecific findings, this most likely represents microvascular ischemic disease changes. There is no evidence of intracranial hemorrhage or mass-effect. No extra-axial fluid collections are identified.There are extensive atherosclerotic changes noted of the cavernous carotid arteriesand left vertebral artery.Skull base and calvarium are intact. Paranasal sinuses are clear. There is scleral banding of the left globe.IMPRESSIONLarge left posterior parietal subgaleal hematoma and scalp hemorrhagic contusion. No evidence of acute intracranial pathology. Diffuse generalized cerebral atrophy. Microvascular ischemic disease changes.Electronically signed by: Elva Benjamin (Jan 07, 2023 22:54:20)
[2023-01-07] MEDS ORDERED: CATAPRES TAB 0.1 MG PO ONE (22:56)
[2023-01-07] MEDS ORDERED: CATAPRES TAB 0.1 MG ONE (23:02)
--- NOTE | 2023-01-07 23:21 | EKG ---
Test Reason : chest pain Blood Pressure : */* mmHG Vent. Rate : 83 BPM Atrial Rate : 83 BPM P-R Int : 194 ms QRS Dur : 114 ms QT Int : 378 ms P-R-T Axes : 63 -80 49 degrees QTc Int : 444 ms Sinus rhythm with occasional premature ventricular complexes Left axis deviation Right bundle branch block Inferior infarct , age undetermined Abnormal ECG No previous ECGs available Confirmed by Hayes Skelton ([id number]) on 01/09/2023 8:08:37 AM Referred By: Confirmed By: Hayes Skelton
[2023-01-07 23:24] LABS: BASOPHILS # (AUTO) 0.1 X10^3/uL (0.0-0.1); BASOPHILS % (AUTO) 0.6 % (0.2-1.0); EOSINOPHILS # (AUTO) 0.2 x10^3/uL (0.0-0.2); EOSINOPHILS % (AUTO) 2.1 % (0.9-2.9); HEMATOCRIT 38.2 % (36.0-47.0); HEMOGLOBIN 12.9 g/dL (12.0-16.0); LYMPHOCYTES # (AUTO) 1.2 X10^3/uL (1.3-2.9); LYMPHOCYTES % (AUTO) 13.7 % (21.0-51.0); MEAN CORPUSCULAR HEMOGLOBIN 28.9 pg (27.0-34.0); MEAN CORPUSCULAR HGB CONC 33.9 g/dL (33.0-35.0); MEAN CORPUSCULAR VOLUME 85.5 fL (80.0-100.0); MONOCYTES # (AUTO) 0.4 x10^3/uL (0.3-0.8); MONOCYTES % (AUTO) 4.4 % (0.0-13.0); NEUTROPHILS # (AUTO) 7.1 x10^3/uL (2.2-4.8); NEUTROPHILS % (AUTO) 79.2 % (42.0-75.0); RED BLOOD COUNT 4.47 X10^6/uL (3.5-5.4); RED CELL DISTRIBUTION WIDTH 14.6 % (11.6-16.5)
[2023-01-07 23:34] LABS: ALANINE AMINOTRANSFERASE 18 Units/L (12-78); ALBUMIN 3.3 g/dL (3.4-5.0); ALKALINE PHOSPHATASE 74 Units/L (46-116); ASPARTATE AMINO TRANSFERASE 21 Units/L (15-37); BLOOD UREA NITROGEN 26 mg/dL (7-18); CALCIUM 8.6 mg/dL (8.5-10.1); CARBON DIOXIDE 26.9 mmol/L (21-32); CHLORIDE 102 mmol/L (98-107); COR CA(FOR HYPOALB) 9.2 mg/dL (8.5-10.1); COR NA(FOR HYPERGLY) 137 mmol/L (136-145); CREATINE KINASE 78 Units/L (26-192); CREATININE 1.08 mg/dL (0.55-1.02); SODIUM 135 mmol/L (136-145); TOTAL PROTEIN 6.7 g/dL (6.4-8.2); eGFR NON BLACK RACES 51 (>60)
[2023-01-08 00:22] LABS: BILIRUBIN,URINE NEGATIVE (NEGATIVE); BLOOD/HEMOGLOBIN,URINE 1+ (NEGATIVE); GLUCOSE, URINE NEGATIVE (NEGATIVE); KETONES,URINE NEGATIVE (NEGATIVE); LEUKOCYTE ESTERASE ,URINE 2+ (NEGATIVE); NITRITES,URINE POSITIVE (NEGATIVE); PH,URINE 6.5 (5.0 - 8.0); PROTEIN,URINE NEGATIVE (NEGATIVE); UROBILINOGEN,URINE NORMAL (NORMAL)
[2023-01-08 00:25] LABS: APPEARANCE,URINE SLIGHTLY HAZY (CLEAR); COLOR,URINE PALE YELLOW (YELLOW)
[2023-01-08 00:32] LABS: BACTERIA,URINE 3+ /HPF (NEGATIVE); SQUAMOUS EPITHELIAL CELL,UR FEW /HPF (NEGATIVE)
[2023-01-08] MEDS ORDERED: ROCEPHIN VIAL 1 GRAM 1 G in NS 100 ML IV 100 ML IV ONE (00:37)
[2023-01-08] MEDS ORDERED: NS 100 ML IV 100 ML ONE (00:41)
[2023-01-08] MEDS ORDERED: ROCEPHIN VIAL 1 GRAM ONE (00:41)
[2023-01-08] MEDS ORDERED: NS 1,000 ML IV 1,000 ML ONE (01:22)
[2023-01-08] MEDS: NS 1,000 ML IV 1,000 ML IV SCH ×4 (01:27→23:42)
[2023-01-08] MEDS ORDERED: NS 1,000 ML IV 1,000 ML IV SCH (02:00)
[2023-01-08 02:42] VITALS: BMI 19.5
[2023-01-08 05:27] LABS: BASOPHILS % (AUTO) 0.4 % (0.2-1.0); EOSINOPHILS # (AUTO) 0.1 x10^3/uL (0.0-0.2); EOSINOPHILS % (AUTO) 1.2 % (0.9-2.9); HEMATOCRIT 34.6 % (36.0-47.0); HEMOGLOBIN 11.7 g/dL (12.0-16.0); LYMPHOCYTES # (AUTO) 1.3 X10^3/uL (1.3-2.9); LYMPHOCYTES % (AUTO) 13.5 % (21.0-51.0); MEAN CORPUSCULAR HEMOGLOBIN 28.8 pg (27.0-34.0); MEAN CORPUSCULAR HGB CONC 33.9 g/dL (33.0-35.0); MEAN CORPUSCULAR VOLUME 84.9 fL (80.0-100.0); MEAN PLATELET VOLUME 7.6 fL (7.4-11.0); MONOCYTES # (AUTO) 0.5 x10^3/uL (0.3-0.8); MONOCYTES % (AUTO) 5.3 % (0.0-13.0); NEUTROPHILS # (AUTO) 7.9 x10^3/uL (2.2-4.8); NEUTROPHILS % (AUTO) 79.6 % (42.0-75.0); RED BLOOD COUNT 4.07 X10^6/uL (3.5-5.4); RED CELL DISTRIBUTION WIDTH 14.2 % (11.6-16.5); WHITE BLOOD COUNT 9.9 X10^3/uL (3.6-10.0)
[2023-01-08 05:47] LABS: ALANINE AMINOTRANSFERASE 18 Units/L (12-78); ALBUMIN 2.9 g/dL (3.4-5.0); ALKALINE PHOSPHATASE 66 Units/L (46-116); ASPARTATE AMINO TRANSFERASE 16 Units/L (15-37); BLOOD UREA NITROGEN 20 mg/dL (7-18); CALCIUM 7.9 mg/dL (8.5-10.1); CARBON DIOXIDE 27.2 mmol/L (21-32); CHLORIDE 104 mmol/L (98-107); CHOL/HDL RATIO 2.7 (0.0-5.0); CHOLESTEROL 152 mg/dL (0-200); COR CA(FOR HYPOALB) 8.8 mg/dL (8.5-10.1); COR NA(FOR HYPERGLY) 138 mmol/L (136-145); CREATININE 0.83 mg/dL (0.55-1.02); HDL CHOLESTEROL 56 mg/dL (40-60); MAGNESIUM 1.8 mg/dL (2.0-2.9); SODIUM 137 mmol/L (136-145); TOTAL PROTEIN 5.9 g/dL (6.4-8.2); TRIGLYCERIDES 118 mg/dL (0-150); eGFR NON BLACK RACES > 60 (>60)
[2023-01-08] MEDS ORDERED: KLOR-CON PO PRN (05:58)
[2023-01-08] MEDS ORDERED: K-RIDER 10 MEQ/NS 100 ML 10 MEQ/100 ML BAG IV PRN (05:58)
[2023-01-08] MEDS ORDERED: POTASSIUM CHL 40 MEQ/NS 0.45% 500 ML IV PRN (05:58)
[2023-01-08] MEDS ORDERED: POTASSIUM CHL 60 MEQ/NS 0.45% 500 ML IV PRN (05:58)
[2023-01-08] MEDS ORDERED: K-DUR TAB 20 MEQ PO PRN (05:58)
[2023-01-08] MEDS ORDERED: MICRO K EXTEN CAP 10 MEQ PO PRN (05:58)
[2023-01-08] MEDS ORDERED: POTASSIUM CHLORIDE LIQ 20 MEQ UDC PO PRN (05:58)
--- NOTE | 2023-01-08 06:09 | RAD ---
HISTORYCHEST PAINSTUDYCHEST, 1 VIEWCOMPARISONNoneFINDINGSThe cardiomediastinal silhouette is normal in size. Aortic valve prosthesis. No acute airspace disease. No pneumothorax or effusion. The bony thorax appears intact.IMPRESSIONNo acute cardiopulmonary disease.Electronically signed by: DIGNA NESBITT (Jan 08, 2023 06:08:40)
[2023-01-08 06:10] LABS: INR 0.98 (0.8-1.3)
--- NOTE | 2023-01-08 06:20 | EKG ---
Test Reason : Chest Pain Blood Pressure : */* mmHG Vent. Rate : 69 BPM Atrial Rate : 69 BPM P-R Int : 196 ms QRS Dur : 120 ms QT Int : 416 ms P-R-T Axes : 57 -78 28 degrees QTc Int : 445 ms Normal sinus rhythm Pulmonary disease pattern Right bundle branch block Left anterior fascicular block Bifascicular block Abnormal ECG Confirmed by Hayes Seklton ([id number]) on 01/09/2023 8:07:35 AM Referred By: Confirmed By: Hayes Skelton
[2023-01-08] MEDS: MAGNESIUM SULFATE 1 GRAM/100 mL PREMIX 1 G/100 ML BAG IV PRN ×2 (06:22→09:32)
[2023-01-08] MEDS ORDERED: PHARMACY CONSULT - LOVENOX XX SCH (08:00)
[2023-01-08] MEDS: COZAAR PO SCH (09:18)
[2023-01-08] MEDS: LOVENOX INJ 40 MG SYR SC SCH (09:18)
[2023-01-08] MEDS: CATAPRES TAB 0.1 MG PO SCH ×2 (09:18→21:35)
[2023-01-08] MEDS: ULTRAM PO PRN ×2 (09:19→20:52)
[2023-01-08] MEDS: PLAVIX PO SCH (09:20)
[2023-01-08] MEDS: LOPRESSOR TAB 25 MG PO SCH ×2 (09:20→20:39)
--- NOTE | 2023-01-08 11:07 | EKG ---
Test Reason : Chest Pain Blood Pressure : */* mmHG Vent. Rate : 64 BPM Atrial Rate : 64 BPM P-R Int : 206 ms QRS Dur : 120 ms QT Int : 424 ms P-R-T Axes : 56 -74 19 degrees QTc Int : 437 ms Normal sinus rhythm Right bundle branch block Left anterior fascicular block Bifascicular block Abnormal ECG When compared with ECG of 08-JAN-2023 05:46, (Unconfirmed) No significant change was found Confirmed by Hayes Skelton ([id number]) on 01/09/2023 8:08:54 AM Referred By: Confirmed By: Hayes Skelton
--- NOTE | 2023-01-08 12:48 | DR.H&P ---
H&P - History & Physical for Day of: H&P Date: 01/08/23 - Chief Complaint Chief Complaint: FALL HEAD INJURY, CHEST PAIN - History of Present Illness History of Present Illness: PT IS 87 WF, ER ADMISSION AFTER PRESENTING WITH CO HEAD INJURY WITH FALL AND THEN ONSET OF CHEST PAIN AFTER HER FALL. PT REPORTS SHE WAS CLEANING HER KITCHEN AND FELL, HIT THE BACK OF HER HEAD. PT STATES SHE BEGAN WITH CHEST PAIN AFTER HER FALL. DENIES ANY SOB. PT HAS PMH OF CAD, HTN, DM, OA AND CORIN. PT ADMITTED FOR TREATMENT AND EVALUATION. - Past Medical History Past Medical History: Coronary Artery Disease, Hypertension, Dyslipidemia, Diabetes, Anxiety, Arthritis - Past Surgical History Surgical History: Angioplasty/Stents, Appendectomy, Cholecystectomy, Hysterectomy, Joint Replacement, Tonsillectomy - Family History Family Medical History: Cancer, Heart Failure - Social History Does patient currently use any type of tobacco product: No Have you used tobacco products in the last 12 months: No Type of Tobacco Use: None Does any household member use tobacco: No Alcohol Use: None Drug Use: None - Medications Home Medications: diphenhydramine [From Benadryl] Allergy (Unknown, Unverified 11/03/19 19:50) nitrofurantoin [Macrobid] Allergy (Unknown, Verified 07/17/17 11:07) Antihistamine *COUGH/COLD/SARAH Allergy (Unknown, Uncoded 01/15/12 17:46) CONTINUE taking the following medications lisinopril 10 mg tablet 1 tab PO QDAY 01/08/23 [History] lisinopril 5 mg tablet 1 tab PO QDAY 01/08/23 [History] omeprazole 20 mg capsule,delayed release 1 cap PO BID 01/08/23 [History] - Review of Systems Constitutional: Weakness Eyes: No Symptoms Reported ENT: No Symptoms Reported Respiratory: No Symptoms Reported Cardiovascular: Chest Pain Gastrointestinal: No Symptoms Reported Genitourinary: Frequency Musculoskeletal: Back Pain, Neck Pain Skin: Bruising Neurological: Weakness - Physical Exam Vital Signs: Temperature 98.7 F Pulse Rate [Left Radial] 64 Pulse Rate 80 Respiratory Rate 18 Blood Pressure [Right Arm] 170/77 Blood Pressure [Left Arm] 110/56 Blood Pressure 124/61 O2 Sat by Pulse Oximetry 98 Oriented: Normal Eyes: Normal Ear: Normal Throat: Normal Respiratory: RLL Diminished, LLL Diminished Cardiovascular: Murmur : Normal Auscultation: Bowel Sounds: Normal Palpation: Normal Tenderness: Normal Skin: Decreased [place]urg[place], Bruising (HEMATOMA SCALP) Musculoskeletal: Tender (C SPINE) Psychiatric: Normal Mood Description: Calm Speech Pattern: Clear, Appropriate - Assessment/Plan (1) Chest pain Status: Acute Plan: ADMIT, SERIAL CE AND EKG. PRN SUPPLEMENTAL O2, XRAYS ON ADMISSION, CT HEAD ON ADMISSION. VERIFY HOME MEDICATION. BP AND BP CONTROL. GENTLE IV HYDRATION (2) UTI (urinary tract infection) Status: Acute (3) Trauma complication, early Qualifiers: Encounter type: initial encounter Qualified Code(s): T79.9XXA - Unspecified early complication of trauma, initial encounter Status: Acute (4) Hematoma Status: Acute (5) Diabetes mellitus, type II Status: Chronic (6) Essential (primary) hypertension Status: Chronic - Allergies Allergies/Adverse Reactions: Allergies Allergy/AdvReac Type Severity Reaction Status Date / Time diphenhydramine Allergy Unknown Unverified 11/03/19 19:50 [From Benadryl] nitrofurantoin [Macrobid] Allergy Unknown Verified 07/17/17 11:07 Antihistamine Allergy Unknown Uncoded 01/15/12 17:46 *COUGH/COLD/SARAH
[2023-01-08] MEDS: ROCEPHIN VIAL 1 GRAM 1 G in NS 100 ML IV 100 ML IV SCH (22:47)
[2023-01-09 06:12] LABS: BASOPHILS # (AUTO) 0.1 X10^3/uL (0.0-0.1); BASOPHILS % (AUTO) 0.9 % (0.2-1.0); EOSINOPHILS # (AUTO) 0.2 x10^3/uL (0.0-0.2); EOSINOPHILS % (AUTO) 3.6 % (0.9-2.9); HEMATOCRIT 32.7 % (36.0-47.0); HEMOGLOBIN 11.1 g/dL (12.0-16.0); LYMPHOCYTES # (AUTO) 1.6 X10^3/uL (1.3-2.9); LYMPHOCYTES % (AUTO) 26.6 % (21.0-51.0); MEAN CORPUSCULAR HEMOGLOBIN 29.2 pg (27.0-34.0); MEAN CORPUSCULAR VOLUME 85.9 fL (80.0-100.0); MEAN PLATELET VOLUME 8.5 fL (7.4-11.0); MONOCYTES # (AUTO) 0.5 x10^3/uL (0.3-0.8); MONOCYTES % (AUTO) 7.8 % (0.0-13.0); NEUTROPHILS # (AUTO) 3.7 x10^3/uL (2.2-4.8); NEUTROPHILS % (AUTO) 61.1 % (42.0-75.0); RED BLOOD COUNT 3.81 X10^6/uL (3.5-5.4); RED CELL DISTRIBUTION WIDTH 14.7 % (11.6-16.5)
[2023-01-09 06:35] LABS: ALANINE AMINOTRANSFERASE 16 Units/L (12-78); ALBUMIN 2.6 g/dL (3.4-5.0); ALKALINE PHOSPHATASE 63 Units/L (46-116); ASPARTATE AMINO TRANSFERASE 19 Units/L (15-37); BLOOD UREA NITROGEN 17 mg/dL (7-18); CALCIUM 7.8 mg/dL (8.5-10.1); CARBON DIOXIDE 24.8 mmol/L (21-32); CHLORIDE 106 mmol/L (98-107); COR CA(FOR HYPOALB) 8.9 mg/dL (8.5-10.1); COR NA(FOR HYPERGLY) 140 mmol/L (136-145); CREATININE 0.82 mg/dL (0.55-1.02); MAGNESIUM 1.9 mg/dL (2.0-2.9); SODIUM 139 mmol/L (136-145); TOTAL PROTEIN 5.6 g/dL (6.4-8.2); eGFR NON BLACK RACES > 60 (>60)
[2023-01-09] MEDS ORDERED: ZESTRIL TAB 5 MG PO SCH (09:00)
[2023-01-09] MEDS: PLAVIX PO SCH (09:15)
[2023-01-09] MEDS: LOVENOX INJ 40 MG SYR SC SCH (09:15)
[2023-01-09] MEDS: CATAPRES TAB 0.1 MG PO SCH ×2 (09:15→20:41)
[2023-01-09] MEDS: MAGNESIUM SULFATE 1 GRAM/100 mL PREMIX 1 G/100 ML BAG IV PRN ×2 (09:15→13:51)
[2023-01-09] MEDS: LOPRESSOR TAB 25 MG PO SCH ×2 (09:16→20:40)
[2023-01-09] MEDS: COZAAR PO SCH (09:16)
[2023-01-09] MEDS: NS 1,000 ML IV 1,000 ML IV SCH (10:00)
[2023-01-09] MEDS: ULTRAM PO PRN (20:40)
[2023-01-09] MEDS: ROCEPHIN VIAL 1 GRAM 1 G in NS 100 ML IV 100 ML IV SCH (22:09)
[2023-01-10 06:42] LABS: ALANINE AMINOTRANSFERASE 20 Units/L (12-78); ALBUMIN 2.9 g/dL (3.4-5.0); ALKALINE PHOSPHATASE 71 Units/L (46-116); ASPARTATE AMINO TRANSFERASE 19 Units/L (15-37); BLOOD UREA NITROGEN 19 mg/dL (7-18); CALCIUM 8.1 mg/dL (8.5-10.1); CHLORIDE 105 mmol/L (98-107); COR NA(FOR HYPERGLY) 139 mmol/L (136-145); CREATININE 0.82 mg/dL (0.55-1.02); MAGNESIUM 2.1 mg/dL (2.0-2.9); SODIUM 138 mmol/L (136-145); TOTAL PROTEIN 6.2 g/dL (6.4-8.2); eGFR NON BLACK RACES > 60 (>60)
[2023-01-10 06:46] LABS: BASOPHILS % (AUTO) 0.6 % (0.2-1.0); EOSINOPHILS # (AUTO) 0.2 x10^3/uL (0.0-0.2); EOSINOPHILS % (AUTO) 3.3 % (0.9-2.9); HEMATOCRIT 37.9 % (36.0-47.0); HEMOGLOBIN 12.5 g/dL (12.0-16.0); LYMPHOCYTES # (AUTO) 1.8 X10^3/uL (1.3-2.9); LYMPHOCYTES % (AUTO) 28.2 % (21.0-51.0); MEAN CORPUSCULAR VOLUME 87.8 fL (80.0-100.0); MEAN PLATELET VOLUME 7.9 fL (7.4-11.0); MONOCYTES # (AUTO) 0.4 x10^3/uL (0.3-0.8); MONOCYTES % (AUTO) 6.6 % (0.0-13.0); NEUTROPHILS # (AUTO) 3.8 x10^3/uL (2.2-4.8); NEUTROPHILS % (AUTO) 61.3 % (42.0-75.0); RED BLOOD COUNT 4.32 X10^6/uL (3.5-5.4); RED CELL DISTRIBUTION WIDTH 14.3 % (11.6-16.5); WHITE BLOOD COUNT 6.2 X10^3/uL (3.6-10.0)
--- NOTE | 2023-01-10 08:04 | RAD ---
HISTORYCHF, CHEST PAINSTUDYCHEST, 1 [id number]/2023FINDINGSThe lungs are clear. No pneumothorax or significant effusion.Heart size is normal.Minimal scoliosis is unchanged.Probable hiatal hernia seen is lucency and opacity superimposed over the heart.There is a prosthetic heart valve. EKG leads are noted.IMPRESSION1. No acute finding2. Probable large hiatal herniaElectronically signed by: Bandar Levi (Jan 10, 2023 08:02:53)
[2023-01-10] MEDS: PROTONIX INJ 40 MG VIAL IVP SCH (10:47)
[2023-01-10] MEDS: PLAVIX PO SCH (10:47)
[2023-01-10] MEDS: ULTRAM PO PRN (10:48)
[2023-01-10] MEDS: CATAPRES TAB 0.1 MG PO SCH ×2 (10:48→20:09)
[2023-01-10] MEDS: LOVENOX INJ 40 MG SYR SC SCH (10:48)
[2023-01-10] MEDS: ZESTRIL TAB 10 MG PO SCH (10:48)
[2023-01-10] MEDS: LOPRESSOR TAB 25 MG PO SCH ×2 (10:49→20:09)
--- NOTE | 2023-01-10 17:16 | VAS ---
HISTORY: Concern for carotid artery stenosis. Syncopal episode. Hypertension and UTI.EXAM: BILATERAL DOPPLER CAROTID ULTRASOUND EXAMTechnique: Multiple call scale and color flow Doppler images of the right and left carotid arterial system were obtained.The vertebral arterial system was evaluated as well.Findings: Nonocclusive color flow Doppler is seen throughout the right and left carotid arterial system. No hemodynamically significant carotid arterial stenosis is seen based on velocity criteria. There is moderate bilateral carotid atherosclerosis and mixed atherosclerotic plaque formation of the bilateral carotid bulbs and ICAs with associated intimal thickening but without evidence for high-grade stenosis (>70%) or occlusion of the carotid arteries. The right and left vertebral artery demonstrate antegrade flow.IMPRESSION: Moderate bilateral carotid atherosclerosis and mixed atherosclerotic plaque formation of the bilateral carotid bulbs and [in both] ICAs with aivo-[id number] associated carotid intimal thickening but without evidence for high-grade stenosis or occlusion of the carotid arteries, based on Doppler velocity criteria.Appropriate, antegrade, vertebral arterial flow.Peak right ICA velocity: 110 centimeter/seconds.Peak right CCA velocity: 66 centimeter/seconds.Peak left ICA velocity: 115 centimeter/seconds.Peak left CCA velocity: 93 centimeter/seconds.Right ICA to CCA ratio: 1.7.Left ICA to CCA ratio: 1.7.Electronically signed by: HANSEL LUNSFORD III (Jan 10, 2023 17:15:16)
[2023-01-10] MEDS ORDERED: ROCEPHIN VIAL 1 GRAM IM ONE (21:13)
[2023-01-10] MEDS ORDERED: XYLOCAINE 1 % (PLAIN) ONE (21:51)
[2023-01-10] MEDS: ROCEPHIN VIAL 1 GRAM 1 G in NS 100 ML IV 100 ML IV SCH (22:58)
[2023-01-11 05:41] LABS: BASOPHILS % (AUTO) 0.7 % (0.2-1.0); EOSINOPHILS # (AUTO) 0.2 x10^3/uL (0.0-0.2); HEMATOCRIT 36.1 % (36.0-47.0); HEMOGLOBIN 12.2 g/dL (12.0-16.0); LYMPHOCYTES # (AUTO) 1.7 X10^3/uL (1.3-2.9); LYMPHOCYTES % (AUTO) 27.1 % (21.0-51.0); MEAN CORPUSCULAR HEMOGLOBIN 29.1 pg (27.0-34.0); MEAN CORPUSCULAR HGB CONC 33.8 g/dL (33.0-35.0); MEAN CORPUSCULAR VOLUME 86.1 fL (80.0-100.0); MONOCYTES # (AUTO) 0.4 x10^3/uL (0.3-0.8); MONOCYTES % (AUTO) 6.4 % (0.0-13.0); NEUTROPHILS # (AUTO) 3.9 x10^3/uL (2.2-4.8); NEUTROPHILS % (AUTO) 62.8 % (42.0-75.0); RED BLOOD COUNT 4.19 X10^6/uL (3.5-5.4); RED CELL DISTRIBUTION WIDTH 14.3 % (11.6-16.5); WHITE BLOOD COUNT 6.2 X10^3/uL (3.6-10.0)
[2023-01-11 05:51] LABS: ALANINE AMINOTRANSFERASE 27 Units/L (12-78); ALBUMIN 2.9 g/dL (3.4-5.0); ALKALINE PHOSPHATASE 72 Units/L (46-116); ASPARTATE AMINO TRANSFERASE 19 Units/L (15-37); BLOOD UREA NITROGEN 21 mg/dL (7-18); CALCIUM 8.2 mg/dL (8.5-10.1); CARBON DIOXIDE 28.7 mmol/L (21-32); CHLORIDE 104 mmol/L (98-107); COR CA(FOR HYPOALB) 9.1 mg/dL (8.5-10.1); COR NA(FOR HYPERGLY) 139 mmol/L (136-145); CREATININE 0.89 mg/dL (0.55-1.02); SODIUM 138 mmol/L (136-145); TOTAL PROTEIN 6.1 g/dL (6.4-8.2); eGFR NON BLACK RACES > 60 (>60)
[2023-01-11] MEDS: LOVENOX INJ 40 MG SYR SC SCH (08:31)
[2023-01-11] MEDS: ZESTRIL TAB 10 MG PO SCH (08:32)
[2023-01-11] MEDS: PLAVIX PO SCH (08:32)
[2023-01-11] MEDS: CATAPRES TAB 0.1 MG PO SCH (08:32)
[2023-01-11] MEDS: ULTRAM PO PRN (08:33)
[2023-01-11] MEDS: PROTONIX INJ 40 MG VIAL IVP SCH (08:36)
[2023-01-11] MEDS: LOPRESSOR TAB 25 MG PO SCH (08:37)
[2023-01-11 11:47] VITALS: BP 123/70
== END 2023-01-11 14:30 | disposition home health service (06) ==
LOC: ER 22:17 → MED/SURG 22:17
PROVIDERS: ADMIT Internal Medicine; ATTEND Internal Medicine
DX: W18.39XA Other fall on same level, initial encounter; R77.8 Other specified abnormalities of plasma proteins; I10 Essential (primary) hypertension; R26.89 Other abnormalities of gait and mobility; Y92.9 Unspecified place or not applicable; N39.0 Urinary tract infection, site not specified; B96.1 Klebsiella pneumoniae [K. pneumoniae] as the cause of diseases classified elsewhere; R55 Syncope and collapse; S00.03XA Contusion of scalp, initial encounter; M19.90 Unspecified osteoarthritis, unspecified site; E11.65 Type 2 diabetes mellitus with hyperglycemia; I25.10 Atherosclerotic heart disease of native coronary artery without angina pectoris; R94.31 Abnormal electrocardiogram [ECG] [EKG]; R07.89 Other chest pain; Z79.01 Long term (current) use of anticoagulants; M62.81 Muscle weakness (generalized); R51.9 Headache, unspecified; E86.0 Dehydration

== ENCOUNTER 2023-02-07 11:25 | Inpatient (IN) ==
[2023-02-07] MEDS ORDERED: ATARAX TAB 10 MG PO PRN (13:48)
--- NOTE | 2023-02-07 14:12 | RAD ---
HISTORYBILATERAL LOWER EXTREMITY DERMATITIS/ CELLULITISSTUDYCHEST, 1 [id number]/29/2023FINDINGSThe cardiomediastinal silhouette is stable. Similar aortic valve prosthesis. Chronic interstitial changes in the lungs. No acute airspace disease. No pneumothorax or effusion. The bony thorax appears intact.IMPRESSIONNo acute cardiopulmonary disease.Electronically signed by: DIGNA NESBITT (February 07, 2023 14:10:52)
[2023-02-07] MEDS: TRADJENTA PO SCH (14:39)
[2023-02-07 15:04] LABS: BASOPHILS # (AUTO) 0.1 X10^3/uL (0.0-0.1); BASOPHILS % (AUTO) 0.6 % (0.2-1.0); EOSINOPHILS # (AUTO) 0.1 x10^3/uL (0.0-0.2); EOSINOPHILS % (AUTO) 0.8 % (0.9-2.9); HEMATOCRIT 36.7 % (36.0-47.0); HEMOGLOBIN 12.5 g/dL (12.0-16.0); LYMPHOCYTES # (AUTO) 1.6 X10^3/uL (1.3-2.9); LYMPHOCYTES % (AUTO) 15.6 % (21.0-51.0); MEAN CORPUSCULAR HEMOGLOBIN 28.4 pg (27.0-34.0); MEAN CORPUSCULAR HGB CONC 34.2 g/dL (33.0-35.0); MEAN CORPUSCULAR VOLUME 83.1 fL (80.0-100.0); MEAN PLATELET VOLUME 7.8 fL (7.4-11.0); MONOCYTES # (AUTO) 0.8 x10^3/uL (0.3-0.8); MONOCYTES % (AUTO) 8.5 % (0.0-13.0); NEUTROPHILS # (AUTO) 7.4 x10^3/uL (2.2-4.8); NEUTROPHILS % (AUTO) 74.5 % (42.0-75.0); PLATELET COUNT 271 X10^3/uL (150.0-450.0); RED BLOOD COUNT 4.42 X10^6/uL (3.5-5.4); RED CELL DISTRIBUTION WIDTH 13.9 % (11.6-16.5)
[2023-02-07 15:06] LABS: ERYTHROCYTE SEDIMENTATION RATE 29 MM/HOUR (0-20)
[2023-02-07 15:22] LABS: ALBUMIN 3.3 g/dL (3.4-5.0); CALCIUM 8.6 mg/dL (8.5-10.1); COR CA(FOR HYPOALB) 9.2 mg/dL (8.5-10.1); CREATININE 1.16 mg/dL (0.55-1.02); POTASSIUM 4.6 mmol/L (3.5-5.1); TOTAL PROTEIN 7.4 g/dL (6.4-8.2)
[2023-02-07] MEDS: NS 1,000 ML IV 1,000 ML IV SCH (15:56)
[2023-02-07] MEDS: ROCEPHIN VIAL 1 GRAM 1 G in NS 100 ML IV 100 ML IV SCH (15:56)
[2023-02-07 16:28] VITALS: BMI 18.6
[2023-02-07 18:32] LABS: BILIRUBIN,URINE NEGATIVE (NEGATIVE); BLOOD/HEMOGLOBIN,URINE 1+ (NEGATIVE); GLUCOSE, URINE NEGATIVE (NEGATIVE); KETONES,URINE NEGATIVE (NEGATIVE); LEUKOCYTE ESTERASE ,URINE 2+ (NEGATIVE); NITRITES,URINE POSITIVE (NEGATIVE); PROTEIN,URINE NEGATIVE (NEGATIVE); UROBILINOGEN,URINE NORMAL (NORMAL)
[2023-02-07 18:42] LABS: APPEARANCE,URINE SLIGHTLY HAZY (CLEAR); COLOR,URINE YELLOW (YELLOW); RBC,URINE 0-2 /HPF (0-3); SQUAMOUS EPITHELIAL CELL,UR MANY /HPF (NEGATIVE)
[2023-02-07 18:43] LABS: BACTERIA,URINE 4+ /HPF (NEGATIVE); TRANSITIONAL EPI CELLS,URINE FEW /HPF (NEGATIVE)
[2023-02-07] MEDS ORDERED: TYLENOL 325 MG TAB PO PRN (20:32)
[2023-02-08] MEDS ORDERED: TORADOL 15 MG VIAL IVP ONE (05:30)
[2023-02-08 06:09] LABS: BASOPHILS # (AUTO) 0.1 X10^3/uL (0.0-0.1); BASOPHILS % (AUTO) 0.9 % (0.2-1.0); EOSINOPHILS # (AUTO) 0.1 x10^3/uL (0.0-0.2); EOSINOPHILS % (AUTO) 1.6 % (0.9-2.9); HEMATOCRIT 35.7 % (36.0-47.0); HEMOGLOBIN 12.2 g/dL (12.0-16.0); LYMPHOCYTES # (AUTO) 1.8 X10^3/uL (1.3-2.9); LYMPHOCYTES % (AUTO) 24.5 % (21.0-51.0); MEAN CORPUSCULAR HEMOGLOBIN 28.3 pg (27.0-34.0); MEAN CORPUSCULAR HGB CONC 34.2 g/dL (33.0-35.0); MEAN CORPUSCULAR VOLUME 82.8 fL (80.0-100.0); MEAN PLATELET VOLUME 8.1 fL (7.4-11.0); MONOCYTES # (AUTO) 0.7 x10^3/uL (0.3-0.8); NEUTROPHILS # (AUTO) 4.5 x10^3/uL (2.2-4.8); PLATELET COUNT 243 X10^3/uL (150.0-450.0); RED BLOOD COUNT 4.31 X10^6/uL (3.5-5.4); RED CELL DISTRIBUTION WIDTH 13.8 % (11.6-16.5); WHITE BLOOD COUNT 7.1 X10^3/uL (3.6-10.0)
[2023-02-08 06:15] LABS: ALANINE AMINOTRANSFERASE 15 Units/L (12-78); ALBUMIN 2.9 g/dL (3.4-5.0); ALKALINE PHOSPHATASE 74 Units/L (46-116); ASPARTATE AMINO TRANSFERASE 26 Units/L (15-37); BLOOD UREA NITROGEN 26 mg/dL (7-18); CALCIUM 8.4 mg/dL (8.5-10.1); CARBON DIOXIDE 25.2 mmol/L (21-32); CHLORIDE 100 mmol/L (98-107); COR CA(FOR HYPOALB) 9.3 mg/dL (8.5-10.1); COR NA(FOR HYPERGLY) 135 mmol/L (136-145); CREATININE 0.92 mg/dL (0.55-1.02); GLUCOSE 192 mg/dL (65-99); POTASSIUM 4.9 mmol/L (3.5-5.1); SODIUM 133 mmol/L (136-145); TOTAL PROTEIN 6.5 g/dL (6.4-8.2); eGFR NON BLACK RACES > 60 (>60)
[2023-02-08] MEDS: LOVENOX INJ 40 MG SYR SC SCH (09:16)
[2023-02-08] MEDS: ROCEPHIN VIAL 1 GRAM 1 G in NS 100 ML IV 100 ML IV SCH (09:17)
[2023-02-08] MEDS: TRADJENTA PO SCH (09:44)
[2023-02-08] MEDS: ULTRAM PO PRN ×2 (10:45→20:29)
[2023-02-08] MEDS: NS 1,000 ML IV 1,000 ML IV SCH (14:11)
[2023-02-08] MEDS ORDERED: SILVADENE TOP ONE (15:50)
--- NOTE | 2023-02-08 15:57 | RAD ---
HISTORYLT ANKLE/FOOT PAIN SWELLINGSTUDYFOOT, LEFTCOMPARISONNone availableTECHNIQUELeft foot radiographs, 3 views, AP, oblique and lateral projectionsFINDINGSNo fracture or dislocations.Normal joint spaces.Soft tissues are unremarkable.IMPRESSIONNo acute osseous abnormality.Electronically signed by: Giacomo Oglesby (February 08, 2023 15:56:47)
--- NOTE | 2023-02-08 16:00 | RAD ---
HISTORYLT ANKLE/FOOT PAIN SWELLINGSTUDYANKLE, LEFTCOMPARISONNone availableTECHNIQUELeft ankle radiographs, 3 views, AP, oblique and lateral projectionsFINDINGSNo acute fracture or dislocations.Healed prior distal fibular fracture.Normal joint spaces.Peripheral vascular calcifications.Mild diffuse nonspecific subcutaneous edema.Normal tibiofibular interval.IMPRESSIONNo acute osseous abnormality.Electronically signed by: Giacomo Oglesby (February 08, 2023 15:59:46)
[2023-02-08] MEDS ORDERED: XYLOCAINE 1 % (PLAIN) ONE (16:50)
[2023-02-08] MEDS ORDERED: TORADOL 15 MG VIAL IM ONE (17:07)
[2023-02-08] MEDS ORDERED: XYLOCAINE 1 % (PLAIN) IM ONE (17:07)
--- NOTE | 2023-02-08 18:35 | DR.UPDATE ---
H&P Update H&P Reviewed: Yes Any changes to H&P?: No Patient was examined?: Yes Procedures (ALL) - Central Line Placement PCM.CLCO: written consent Time out performed: Yes Patient placed pm monitor/pulse ox: Yes MD prep: mask, gown, gloves, other Centrial line prep: chlorhexidine scrub, sterile drapes applied Local anesthsia used: lidocane 1% Ultrasound used for placement: Yes (right basilic cannulation visualized) Central line lumen ininserted: double Post procedure: good blood return, all ports aspirated, flushed,capped, sterile dressing applied Post procedure xray: tip oc catheter in good position (appears svc), no pneumothorax seen Patient tolerated procedure: Yes Complications: none, other (failed attempt at RIJTLC, then picc successful, 3cm exposed of 40cm catheter)
--- NOTE | 2023-02-08 18:58 | RAD ---
HISTORYPICC LINE PLACEMENT Relevant Clinical InformationSTUDYCHEST, 1 VIEWCOMPARISONYesterday 1:44 p.m.FINDINGSRight-sided PICC line is noted with tip overlying the expected location of superior vena cava. Heart size is enlarged. Retrocardiac density suggesting hiatal hernia. Cardiac valvular prosthesis.IMPRESSIONSatisfactory position of right-sided PICC lineElectronically signed by: Mina Reid (February 08, 2023 18:57:02)
[2023-02-09] MEDS: ULTRAM PO PRN ×2 (03:01→20:40)
[2023-02-09 05:08] LABS: BASOPHILS % (AUTO) 0.4 % (0.2-1.0); EOSINOPHILS # (AUTO) 0.1 x10^3/uL (0.0-0.2); HEMATOCRIT 29.9 % (36.0-47.0); HEMOGLOBIN 10.4 g/dL (12.0-16.0); LYMPHOCYTES # (AUTO) 1.7 X10^3/uL (1.3-2.9); LYMPHOCYTES % (AUTO) 24.9 % (21.0-51.0); MEAN CORPUSCULAR HEMOGLOBIN 28.7 pg (27.0-34.0); MEAN CORPUSCULAR HGB CONC 34.7 g/dL (33.0-35.0); MEAN CORPUSCULAR VOLUME 82.6 fL (80.0-100.0); MEAN PLATELET VOLUME 7.9 fL (7.4-11.0); MONOCYTES # (AUTO) 0.7 x10^3/uL (0.3-0.8); MONOCYTES % (AUTO) 10.1 % (0.0-13.0); NEUTROPHILS # (AUTO) 4.2 x10^3/uL (2.2-4.8); NEUTROPHILS % (AUTO) 62.6 % (42.0-75.0); PLATELET COUNT 227 X10^3/uL (150.0-450.0); RED BLOOD COUNT 3.62 X10^6/uL (3.5-5.4); RED CELL DISTRIBUTION WIDTH 13.9 % (11.6-16.5); WHITE BLOOD COUNT 6.7 X10^3/uL (3.6-10.0)
[2023-02-09 05:17] LABS: ALANINE AMINOTRANSFERASE 26 Units/L (12-78); ALBUMIN 2.5 g/dL (3.4-5.0); ALKALINE PHOSPHATASE 65 Units/L (46-116); ASPARTATE AMINO TRANSFERASE 17 Units/L (15-37); BLOOD UREA NITROGEN 34 mg/dL (7-18); CALCIUM 8.1 mg/dL (8.5-10.1); CARBON DIOXIDE 25.2 mmol/L (21-32); CHLORIDE 106 mmol/L (98-107); COR CA(FOR HYPOALB) 9.3 mg/dL (8.5-10.1); COR NA(FOR HYPERGLY) 140 mmol/L (136-145); GLUCOSE 197 mg/dL (65-99); POTASSIUM 4.9 mmol/L (3.5-5.1); SODIUM 138 mmol/L (136-145); TOTAL PROTEIN 5.6 g/dL (6.4-8.2); eGFR NON BLACK RACES > 60 (>60)
[2023-02-09] MEDS ORDERED: TORADOL 15 MG VIAL IVP ONE (05:30)
[2023-02-09] MEDS: TRADJENTA PO SCH (08:08)
[2023-02-09] MEDS: ROCEPHIN VIAL 1 GRAM 1 G in NS 100 ML IV 100 ML IV SCH (08:08)
[2023-02-09] MEDS: SILVADENE TOP SCH (08:10)
[2023-02-09] MEDS: LOVENOX INJ 40 MG SYR SC SCH (09:26)
--- NOTE | 2023-02-09 10:11 | DR.PROGNOT ---
HOSPITAL PROGRESS NOTE Progress Note for Day of: Progress Note Date: 02/09/23 Chief Complaint Chief Complaint: Patient is improving today, bilateral leg ulcerations are dry and healing slowly. No active drainage. No necrosis or abscess formation. Past Medical Family Social History Past Med/Fam/Surg Hx: No changes since H&P Allergies: Allergies diphenhydramine [From Benadryl] Allergy (Unknown, Verified 01/19/23 12:22) nitrofurantoin [Macrobid] Allergy (Unknown, Verified 01/19/23 12:22) Reason: Drug allergy; Comments: possible allergy: fever, chills, tremors Antihistamine *COUGH/COLD/SARAH Allergy (Unknown, Uncoded 01/15/12 17:46) Free Text Allergy: Antihistamine *COUGH/COLD/ALLERGY* Vital Signs Vital Signs: Temperature 98.5 F Pulse Rate [Left Radial] 77 Respiratory Rate 20 Blood Pressure [Right Arm] 156/65 Blood Pressure [Left Arm] 131/60 Blood Pressure 154/66 O2 Sat by Pulse Oximetry 100 Physical Exam Skin: Other (Dermatitis both lower extremities with bilateral leg ulcers more noticeable on the left side.) Speech Pattern: Clear and Appropriate Laboratory and Diagnostics Result Diagrams: 02/09/23 04:26 02/09/23 04:26 Labs: 02/07/23 18:20 Urine,Clean Catch Urine Culture - Final Staphylococcus Epidermidis Laboratory WBC 6.7 X10^3/uL (3.6-10.0) 02/09/23 04: RBC 3.62 X10^6/uL (3.5-5.4) 02/09/23 04:26 Hgb 10.4 g/dL (12.0-16.0) L 02/09/23 04:26 Hct 29.9 % (36.0-47.0) L 02/09/23 04:26 MCV 82.6 fL (80.0-100.0) 02/09/23 04: MCH 28.7 pg (27.0-34.0) 02/09/23 04: MCHC 34.7 g/dL (33.0-35.0) 02/09/23 04: RDW 13.9 % (11.6-16.5) 02/09/23 04:26 Plt Count 227 X10^3/uL (150.0-450.0) 02/09/23 04:26 MPV 7.9 fL (7.4-11.0) 02/09/23 04:26 Neut % (Auto) 62.6 % (42.0-75.0) 02/09/23 04:26 Lymph % (Auto) 24.9 % (21.0-51.0) 02/09/23 04:26 Bell % (Auto) 10.1 % (0.0-13.0) 02/09/23 04:26 Eos % (Auto) 2.0 % (0.9-2.9) 02/09/23 04:26 Baso % (Auto) 0.4 % (0.2-1.0) 02/09/23 04: Neut # (Auto) 4.2 x10^3/uL (2.2-4.8) 02/09/23 04:26 Lymph # (Auto) 1.7 X10^3/uL (1.3-2.9) 02/09/23 04:26 Bell # (Auto) 0.7 x10^3/uL (0.3-0.8) 02/09/23 04:26 Eos # (Auto) 0.1 x10^3/uL (0.0-0.2) 02/09/23 04:26 Baso # (Auto) 0.0 X10^3/uL (0.0-0.1) 02/09/23 04:26 Absolute Nucleated RBC 0.0 /100WBC 02/09/23 04:26 ESR 29 MM/HOUR (0-20) H 02/07/23 14:55 Sodium 138 mmol/L (136-145) 02/09/23 04:26 Corrected Sodium 140 mmol/L (136-145) 02/09/23 04:26 Potassium 4.9 mmol/L (3.5-5.1) 02/09/23 04:26 Chloride 106 mmol/L (98-107) 02/09/23 04:26 Carbon Dioxide 25.2 mmol/L (21-32) 02/09/23 04:26 BUN 34 mg/dL (7-18) H 02/09/23 04:26 Creatinine 0.90 mg/dL (0.55-1.02) 02/09/23 04:26 Est GFR (MDRD) Af Amer > 60 (>60) 02/09/23 04:26 Est GFR (MDRD) Non-Af > 60 (>60) 02/09/23 04:26 Glucose 197 mg/dL (65-99) H 02/09/23 04:26 Calcium 8.1 mg/dL (8.5-10.1) L 02/09/23 04:26 Corrected Calcium 9.3 mg/dL (8.5-10.1) 02/09/23 04:26 Total Bilirubin 0.10 mg/dL (0.2-1.0) L 02/09/23 04:26 AST 17 Units/L (15-37) 02/09/23 04:26 ALT 26 Units/L (12-78) 02/09/23 04:26 Alkaline Phosphatase 65 Units/L (46-116) 02/09/23 04:26 C-Reactive Protein 12.10 mg/L (0-3.0) H 02/07/23 14:00 Total Protein 5.6 g/dL (6.4-8.2) L 02/09/23 04:26 Albumin 2.5 g/dL (3.4-5.0) L 02/09/23 04:26 Globulin 3.1 g/dL (2.5-4.5) 02/09/23 04:26 Albumin/Globulin Ratio 0.8 Ratio (1.1-2.1) L 02/09/23 04:26 Specimen Type Clean catch urine 02/07/23 18:20 Urine Color Yellow (YELLOW) 02/07/23 18: Urine Appearance Slightly hazy (CLEAR) 02/07/23 18:20 Urine pH 6.0 (5.0 - 8.0) 02/07/23 18:20 Ur Specific [place] 1.020 (1.000-1.030) 02/07/23 18:20 Urine Protein Negative (NEGATIVE) 02/07/23 18: Urine Glucose (UA) Negative (NEGATIVE) 02/07/23 18:20 Urine Ketones Negative (NEGATIVE) 02/07/23 18:20 Urine Blood 1+ (NEGATIVE) 02/07/23 18: Urine Nitrite Positive (NEGATIVE) 02/07/23 18: Urine Bilirubin Negative (NEGATIVE) 02/07/23 18:20 Urine Urobilinogen Normal (NORMAL) 02/07/23 18:20 Ur Leukocyte Esterase 2+ (NEGATIVE) 02/07/23 18:20 Urine RBC 0-2 /HPF (0-3) 02/07/23 18:20 Urine WBC 30-50 /HPF (0-5) A 02/07/23 18:20 Ur Squamous Epith Cells Many /HPF (NEGATIVE) 02/07/23 18:20 Ur Transition Epith Cell Few /HPF (NEGATIVE) 02/07/23 18:20 Urine Bacteria 4+ /HPF (NEGATIVE) 02/07/23 18:20 Ur Culture Indicated? Yes/culture set up 02/07/23 18:20 Assessment and Plan 1: Bilateral leg ulcers and dermatitis On IV antibiotics and local care with Silvadene cream after cleansing with peroxide and saline. 2: Peripheral vascular disease. On anticoagulant.
[2023-02-09] MEDS: DECADRON TAB PO SCH (11:12)
[2023-02-09] MEDS ORDERED: PATIENT'S HOME MEDICATION (Aspirin 81 mg Capsule) PO SCH (14:00)
[2023-02-09] MEDS ORDERED: ASPIRIN EC 81 MG PO ONE (14:52)
[2023-02-09] MEDS: PriLOSEC PO SCH ×2 (15:01→20:39)
[2023-02-09] MEDS: NS 1,000 ML IV 1,000 ML IV SCH (15:01)
[2023-02-09] MEDS: ZYVOX 600MG IV 600 MG/300 ML BAG IV SCH ×2 (15:01→20:39)
[2023-02-09] MEDS: ZESTRIL TAB 5 MG PO SCH (15:02)
[2023-02-09] MEDS ORDERED: MAALOX or MYLANTA PO PRN (16:46)
[2023-02-09] MEDS: NovoLIN R (or HumuLIN R) SUBCUT PRN (17:50)
[2023-02-09] MEDS: SNACK - Diabetic Appropriate PO SCH (21:31)
[2023-02-10 05:47] LABS: BASOPHILS # (AUTO) 0.1 X10^3/uL (0.0-0.1); BASOPHILS % (AUTO) 0.6 % (0.2-1.0); EOSINOPHILS # (AUTO) 0.4 x10^3/uL (0.0-0.2); EOSINOPHILS % (AUTO) 4.2 % (0.9-2.9); HEMATOCRIT 28.5 % (36.0-47.0); HEMOGLOBIN 9.8 g/dL (12.0-16.0); LYMPHOCYTES # (AUTO) 1.9 X10^3/uL (1.3-2.9); LYMPHOCYTES % (AUTO) 19.4 % (21.0-51.0); MEAN CORPUSCULAR HEMOGLOBIN 28.4 pg (27.0-34.0); MEAN CORPUSCULAR HGB CONC 34.3 g/dL (33.0-35.0); MEAN CORPUSCULAR VOLUME 82.8 fL (80.0-100.0); MEAN PLATELET VOLUME 7.7 fL (7.4-11.0); MONOCYTES # (AUTO) 0.7 x10^3/uL (0.3-0.8); MONOCYTES % (AUTO) 7.2 % (0.0-13.0); NEUTROPHILS # (AUTO) 6.6 x10^3/uL (2.2-4.8); NEUTROPHILS % (AUTO) 68.6 % (42.0-75.0); PLATELET COUNT 221 X10^3/uL (150.0-450.0); RED BLOOD COUNT 3.44 X10^6/uL (3.5-5.4); RED CELL DISTRIBUTION WIDTH 14.3 % (11.6-16.5); WHITE BLOOD COUNT 9.6 X10^3/uL (3.6-10.0)
[2023-02-10 06:00] LABS: ALANINE AMINOTRANSFERASE 26 Units/L (12-78); ALBUMIN 2.3 g/dL (3.4-5.0); ALKALINE PHOSPHATASE 66 Units/L (46-116); ASPARTATE AMINO TRANSFERASE 18 Units/L (15-37); BLOOD UREA NITROGEN 29 mg/dL (7-18); CALCIUM 7.8 mg/dL (8.5-10.1); CARBON DIOXIDE 27.8 mmol/L (21-32); CHLORIDE 104 mmol/L (98-107); COR CA(FOR HYPOALB) 9.2 mg/dL (8.5-10.1); COR NA(FOR HYPERGLY) 137 mmol/L (136-145); CREATININE 0.92 mg/dL (0.55-1.02); GLUCOSE 145 mg/dL (65-99); POTASSIUM 4.9 mmol/L (3.5-5.1); SODIUM 136 mmol/L (136-145); TOTAL PROTEIN 5.3 g/dL (6.4-8.2); eGFR NON BLACK RACES > 60 (>60)
--- NOTE | 2023-02-10 07:01 | RAD ---
HISTORYEpigastric pain coughSTUDYAP chestCOMPARISONMay 2022FINDINGSThe heart is probably not enlarged. Apparent increase in cardiac diameter simulated by very large hiatal hernia behind the heart. The visualized lungs are clear although the retrocardiac left lower lobe is obscured. Stable position of PICC.IMPRESSIONNo acute findings. Large intrathoracic hiatal hernia.Electronically signed by: ALFRED MARIA (February 10, 2023 07:00:39)
[2023-02-10] MEDS: ZESTRIL TAB 5 MG PO SCH (09:21)
[2023-02-10] MEDS: DECADRON TAB PO SCH (09:21)
[2023-02-10] MEDS: PriLOSEC PO SCH ×2 (09:21→20:27)
[2023-02-10] MEDS: ROCEPHIN VIAL 1 GRAM 1 G in NS 100 ML IV 100 ML IV SCH (09:23)
[2023-02-10] MEDS: LOVENOX INJ 40 MG SYR SC SCH (09:23)
[2023-02-10] MEDS: ZYVOX 600MG IV 600 MG/300 ML BAG IV SCH ×2 (09:24→20:26)
[2023-02-10] MEDS: TRADJENTA PO SCH (09:25)
[2023-02-10] MEDS: SILVADENE TOP SCH (09:25)
[2023-02-10] MEDS: NS 1,000 ML IV 1,000 ML IV SCH (14:21)
[2023-02-10] MEDS: NovoLIN R (or HumuLIN R) SUBCUT PRN (17:04)
[2023-02-10] MEDS: SNACK - Diabetic Appropriate PO SCH (20:00)
[2023-02-11 05:14] LABS: BASOPHILS % (AUTO) 0.3 % (0.2-1.0); EOSINOPHILS # (AUTO) 0.2 x10^3/uL (0.0-0.2); EOSINOPHILS % (AUTO) 2.1 % (0.9-2.9); HEMATOCRIT 29.8 % (36.0-47.0); HEMOGLOBIN 10.3 g/dL (12.0-16.0); LYMPHOCYTES # (AUTO) 1.7 X10^3/uL (1.3-2.9); MEAN CORPUSCULAR HEMOGLOBIN 28.5 pg (27.0-34.0); MEAN CORPUSCULAR HGB CONC 34.5 g/dL (33.0-35.0); MEAN CORPUSCULAR VOLUME 82.8 fL (80.0-100.0); MEAN PLATELET VOLUME 8.2 fL (7.4-11.0); MONOCYTES # (AUTO) 0.7 x10^3/uL (0.3-0.8); NEUTROPHILS # (AUTO) 8.6 x10^3/uL (2.2-4.8); NEUTROPHILS % (AUTO) 76.6 % (42.0-75.0); PLATELET COUNT 241 X10^3/uL (150.0-450.0); WHITE BLOOD COUNT 11.3 X10^3/uL (3.6-10.0)
[2023-02-11 05:27] LABS: ALANINE AMINOTRANSFERASE 23 Units/L (12-78); ALBUMIN 2.5 g/dL (3.4-5.0); ALKALINE PHOSPHATASE 65 Units/L (46-116); ASPARTATE AMINO TRANSFERASE 17 Units/L (15-37); BLOOD UREA NITROGEN 19 mg/dL (7-18); CALCIUM 8.3 mg/dL (8.5-10.1); CARBON DIOXIDE 27.8 mmol/L (21-32); CHLORIDE 103 mmol/L (98-107); COR CA(FOR HYPOALB) 9.5 mg/dL (8.5-10.1); COR NA(FOR HYPERGLY) 137 mmol/L (136-145); GLUCOSE 162 mg/dL (65-99); POTASSIUM 4.6 mmol/L (3.5-5.1); SODIUM 136 mmol/L (136-145); TOTAL PROTEIN 5.7 g/dL (6.4-8.2); eGFR NON BLACK RACES > 60 (>60)
[2023-02-11] MEDS: ROCEPHIN VIAL 1 GRAM 1 G in NS 100 ML IV 100 ML IV SCH (08:44)
[2023-02-11] MEDS: ASPIRIN EC 81 MG PO SCH (08:44)
[2023-02-11] MEDS: DECADRON TAB PO SCH (08:45)
[2023-02-11] MEDS: ZESTRIL TAB 5 MG PO SCH (08:45)
[2023-02-11] MEDS: PriLOSEC PO SCH ×2 (08:46→20:46)
[2023-02-11] MEDS: LOVENOX INJ 40 MG SYR SC SCH (08:46)
[2023-02-11] MEDS: TRADJENTA PO SCH (08:47)
[2023-02-11] MEDS: ZYVOX 600MG IV 600 MG/300 ML BAG IV SCH ×2 (10:08→20:46)
[2023-02-11] MEDS: SILVADENE TOP SCH (11:35)
[2023-02-11] MEDS ORDERED: TORADOL 15 MG VIAL IVP NR (13:37)
[2023-02-11] MEDS: NS 1,000 ML IV 1,000 ML IV SCH (13:47)
[2023-02-11] MEDS: ROBITUSSIN DM PO SCH ×3 (13:52→20:46)
[2023-02-11] MEDS: ULTRAM PO PRN (20:47)
[2023-02-11] MEDS: NovoLIN R (or HumuLIN R) SUBCUT PRN (20:48)
[2023-02-11] MEDS: SNACK - Diabetic Appropriate PO SCH (21:00)
[2023-02-11] MEDS: TORADOL 15 MG VIAL IVP PRN (22:23)
--- NOTE | 2023-02-12 06:12 | RAD ---
HISTORYCoughSTUDYSingle-view [id number]/2023FINDINGSThe trachea is midline. The cardiac silhouette is unremarkable. Right-sided PICC line is again observed and stable. The lungs are clear without focal infiltrate or effusion. Large central sliding hiatal hernia is noted to be present but stable. The bony thorax is unremarkable.IMPRESSIONStable radiograph when compared to prior examination.Electronically signed by: CABRERA ALFARO (February 12, 2023 06:10:48)
[2023-02-12 06:16] LABS: BASOPHILS % (AUTO) 0.5 % (0.2-1.0); EOSINOPHILS # (AUTO) 0.4 x10^3/uL (0.0-0.2); EOSINOPHILS % (AUTO) 4.5 % (0.9-2.9); HEMATOCRIT 28.3 % (36.0-47.0); HEMOGLOBIN 9.6 g/dL (12.0-16.0); LYMPHOCYTES # (AUTO) 2.2 X10^3/uL (1.3-2.9); LYMPHOCYTES % (AUTO) 26.3 % (21.0-51.0); MEAN CORPUSCULAR HEMOGLOBIN 28.3 pg (27.0-34.0); MEAN CORPUSCULAR HGB CONC 34.1 g/dL (33.0-35.0); MEAN CORPUSCULAR VOLUME 82.9 fL (80.0-100.0); MONOCYTES # (AUTO) 0.6 x10^3/uL (0.3-0.8); MONOCYTES % (AUTO) 7.3 % (0.0-13.0); NEUTROPHILS # (AUTO) 5.1 x10^3/uL (2.2-4.8); NEUTROPHILS % (AUTO) 61.4 % (42.0-75.0); PLATELET COUNT 216 X10^3/uL (150.0-450.0); RED BLOOD COUNT 3.41 X10^6/uL (3.5-5.4); RED CELL DISTRIBUTION WIDTH 14.1 % (11.6-16.5); WHITE BLOOD COUNT 8.3 X10^3/uL (3.6-10.0)
[2023-02-12 06:45] LABS: ALANINE AMINOTRANSFERASE 19 Units/L (12-78); ALBUMIN 2.3 g/dL (3.4-5.0); ALKALINE PHOSPHATASE 54 Units/L (46-116); ASPARTATE AMINO TRANSFERASE 15 Units/L (15-37); BLOOD UREA NITROGEN 24 mg/dL (7-18); CALCIUM 7.6 mg/dL (8.5-10.1); CARBON DIOXIDE 26.2 mmol/L (21-32); CHLORIDE 103 mmol/L (98-107); GLUCOSE 105 mg/dL (65-99); POTASSIUM 4.7 mmol/L (3.5-5.1); SODIUM 136 mmol/L (136-145); TOTAL PROTEIN 5.2 g/dL (6.4-8.2); eGFR NON BLACK RACES > 60 (>60)
[2023-02-12] MEDS: SILVADENE TOP SCH (09:11)
[2023-02-12] MEDS: ROBITUSSIN DM PO SCH ×2 (09:12→12:29)
[2023-02-12] MEDS: ZYVOX 600MG IV 600 MG/300 ML BAG IV SCH (09:12)
[2023-02-12] MEDS: ULTRAM PO PRN (09:12)
[2023-02-12] MEDS: ASPIRIN EC 81 MG PO SCH (09:14)
[2023-02-12] MEDS: LOVENOX INJ 40 MG SYR SC SCH (09:14)
[2023-02-12] MEDS: PriLOSEC PO SCH (09:14)
[2023-02-12] MEDS: ZESTRIL TAB 5 MG PO SCH (09:14)
[2023-02-12] MEDS: ROCEPHIN VIAL 1 GRAM 1 G in NS 100 ML IV 100 ML IV SCH (11:05)
[2023-02-12] MEDS: TRADJENTA PO SCH (11:05)
[2023-02-12] MEDS: TORADOL 15 MG VIAL IVP PRN (12:30)
[2023-02-12] MEDS ORDERED: HYDROGEN PEROXIDE 3% ONE (13:17)
[2023-02-12] MEDS ORDERED: STERILE WATER IRRIGATION IR ONE (13:28)
[2023-02-12] MEDS: NS 1,000 ML IV 1,000 ML IV SCH (14:46)
[2023-02-12 14:49] VITALS: BP 182/73; PULSE 76; TEMP 97.6; O2SAT 100
== END 2023-02-12 13:45 | disposition home health service (06) | DRG 603 ==
LOC: MED/SURG → OBSVTOIN 13:18
PROVIDERS: ADMIT Internal Medicine; ATTEND Internal Medicine
DX: I73.89 Other specified peripheral vascular diseases; F41.8 Other specified anxiety disorders; L30.8 Other specified dermatitis; R53.1 Weakness; B95.7 Other staphylococcus as the cause of diseases classified elsewhere; I25.10 Atherosclerotic heart disease of native coronary artery without angina pectoris; Z79.01 Long term (current) use of anticoagulants; L03.116 Cellulitis of left lower limb; N39.0 Urinary tract infection, site not specified; M19.90 Unspecified osteoarthritis, unspecified site; R10.13 Epigastric pain; L97.918 Non-pressure chronic ulcer of unspecified part of right lower leg with other specified severity; I87.2 Venous insufficiency (chronic) (peripheral); E11.65 Type 2 diabetes mellitus with hyperglycemia; L03.115 Cellulitis of right lower limb; L97.928 Non-pressure chronic ulcer of unspecified part of left lower leg with other specified severity; R62.7 Adult failure to thrive; I10 Essential (primary) hypertension